=== PATIENT | male | born 1945 | race American Indian/Alaskan Native ===

== ENCOUNTER 2016-09-28 15:54 | Inpatient (IN) | payer OTHER ==
[~2016-09-28] VITALS: Ht 175.3 cm; Wt 75.5 kg
[~2016-09-28 15:54] MED LIST: ASPI81TA28 PO; ATOR-24 PO; CLOP1TAB15 PO; FRS/40 PO; GLC500 PO; IPRA1AER2 INH; ISOS60TA2 PO; LISI-729 PO; METO1TAB69 PO; MRLP17 PO; NTRSLP4 SL; OXYC-57 PO
[2016-09-28] MEDS ORDERED: ALBUTEROL 0.083% NEBU SOLN 3 ML VIAL INH STA (16:14)
[2016-09-28] MEDS ORDERED: METHYLPREDNISOLONE IV 40 MG in SYRINGE 0 ML IV STA (16:14)
[2016-09-28] MEDS ORDERED: NTRGSL/4 UT (16:34)
[2016-09-28] MEDS ORDERED: POLY335019 PO (16:34)
[2016-09-28] MEDS ORDERED: ASPIRIN 81 MG CHEW PO STA (16:38)
--- NOTE | 2016-09-28 16:55 | DIAGNOSTIC IMAGING REPORT ---
CHEST ONE VIEW PORTABLE CLINICAL HISTORY: Chest pain and shortness of breath. COMPARISON STUDY: Chest radiograph March 20, 2016. FINDINGS: There are median sternotomy wires and clips from bypass grafting. There is no pneumothorax or pleural effusion. Moderate cardiomegaly is noted. There is pulmonary vascular congestion with mild interstitial thickening. This suggests mild pulmonary edema. IMPRESSION: 1. Findings suggestive of mild pulmonary edema. 2. Stable cardiomegaly. Electronically signed by: Andre Lopez M.D. 09/28/2016 4:54 PM Dictated Date/Time: 09/28/2016 4:53 PM
[2016-09-28 16:56] LABS: BASO % 0.3 %; BASO ABS # 0.03 K/uL (0-0.2); COMPLETE YES; EOS % 0.1 %; HEMATOCRIT 38.9 % (42-52); IG% 2.1 %; LYMPH % 12.1 %; LYMPH ABS # 1.06 K/uL (1.2-3.4); MEAN CELL VOLUME 83.7 fL (80-100); MEAN CORPUSCULAR HEMOGLOBIN 26.2 pg (25-34); MEAN CORPUSCULAR HGB CONC 31.4 g/dl (32-36); MEAN PLATELET VOLUME 12.3 fL (7.4-10.4); MONO % 8.4 %; PLATELET COUNT 206 K/uL (130-400); RED BLOOD COUNT 4.65 M/uL (4.7-6.1); WHITE BLOOD COUNT 8.73 K/uL (4.8-10.8)
[2016-09-28] MEDS ORDERED: ACETAMINOPHEN 325 MG TAB PO STA (17:10)
[2016-09-28 17:19] LABS: BUN/CREATININE RATIO 22.5 (10-20); POTASSIUM 4.1 mmol/L (3.5-5.1)
[2016-09-28 17:30] LABS: CKMB/CK RATIO 2.9 (0-3.0)
[2016-09-28] MEDS: NITROGLYCERIN 0.4 MG SL PER TAB CHARGE SL PRN ×3 (17:48→18:26)
[2016-09-28] MEDS ORDERED: NITROGLYCERIN OINT 2% 1GM PACKET ONE (18:48)
[2016-09-28] MEDS ORDERED: FUROSEMIDE 40 MG/4 ML VIAL IV STA (18:51)
[2016-09-28] MEDS ORDERED: FUROSEMIDE 40 MG/4 ML VIAL ONE (18:57)
[2016-09-28] MEDS ORDERED: DEXTROSE 50% 50 ML SYR IV PRN (19:15)
[2016-09-28] MEDS ORDERED: LEVALBUTEROL/IPRATROPIUM NEB INH PRN (19:15)
[2016-09-28] MEDS ORDERED: GLUCOSE 40% GEL 15 GM TUBE PO PRN (19:15)
[2016-09-28] MEDS ORDERED: ACETAMINOPHEN 325 MG TAB PO PRN (19:15)
[2016-09-28] MEDS ORDERED: GLUCOSE 10 TABS/TUBE PO PRN (19:15)
[2016-09-28] MEDS ORDERED: GLUCAGON FOR INJ 1 MG VIAL SQ PRN (19:15)
[2016-09-28] MEDS ORDERED: IPRATROPIUM BROMIDE NEB SOLN 0.02% 2.5 ML VIAL INH PRN ×2 (20:00)
[2016-09-28] MEDS ORDERED: LEVALBUTEROL 1.25MG/0.5ML NEB INH PRN ×2 (20:00)
[2016-09-28 20:19] LABS: PARTIAL THROMBOPLASTIN RATIO 0.8; PROTHROMBIN TIME (PATIENT) 10.2 SECONDS (9.0-12.0)
[2016-09-28] MEDS: IPRATROPIUM BROMIDE NEB SOLN 0.02% 2.5 ML VIAL INH SCH ×2 (21:00→23:40)
[2016-09-28] MEDS: LEVALBUTEROL 1.25MG/0.5ML NEB INH SCH ×2 (21:00→23:40)
[2016-09-28 21:15] VITALS: BP 175/83; PULSE 90; TEMP 36.8; O2SAT 96; BMI 26.2
[2016-09-28] MEDS ORDERED: CLONIDINE HCL 0.1 MG TAB PO PRN (21:15)
--- NOTE | 2016-09-28 21:24 | History and Physical ---
History & Physical Date & Time of Service: Sep 28, 2016 at 21:07 Chief Complaint: CHF Primary Care Physician: No Doctor, Assigned History of Present Illness Source: patient, family, clinic records, hospital records 71 year old male with history of CAD s/p Stent Placement, CHF EF 40-50%, COPD, DM, HTN, presenting with shortness of breath this afternoon. Patient follows with Dr. Marc for PCP and Dr. Bernabe Toledo for Cardiology. Apparently, patient had stent placed last December 2014 and May in [facility] in [facility]. He was doing fine until for the past 3 weeks when he started to notice intermittent bipedal edema and exertional dyspnea. Denies chest pain, dizziness, nausea, palpitations. Today, patient was trying to fix a toilet sink but was unsucessful, causing him to be stressed. While attempting to do that, patient noticed sudden onset shortness of breath and mild chest discomfort. He tried to use an inhaler with minimal relief, hence ambulance was called. At the ER, patient's BP was as high as systolic 170s. CXR showed pulmonary edema EKG did not show any acute ischemia/infarct, trop was 0.04. He was given Aspirin,Nitrostat, Solumedrol, Albuterol. On my exam, patient states he feels improved overall. Dyspnea and chest pain has resolved. Denies any symptoms. Family History Diabetes mellitus Social History Smoking Status: Former Smoker Drug Use: none Marital Status: Housing status: lives with family Occupational Status: employed Immunizations History of Influenza Vaccine: Yes History of Tetanus Vaccine?: Yes History of Pneumococcal: No History of Hepatitis B Vaccine: Yes Multi-Drug Resistant Organisms History of MDRO: No Allergies Coded Allergies: No Known Allergies (Verified , 09/28/16) Home Medications Scheduled Aspirin (Aspirin Ec), 81 MG PO DAILY Atorvastatin (Lipitor), 40 MG PO DAILY Clopidogrel (Plavix), 75 MG PO DAILY Isosorbide Mononitrate (Imdur Ext Rel), 60 MG PO BID Lisinopril (Zestril), 5 MG PO DAILY Metformin HCl (Metformin HCl), 500 TAB PO BID Metoprolol Succ (Toprol Xl) (Toprol-Xl ), 100 MG PO BID Scheduled PRN Furosemide (Lasix), 40 MG PO DAILY PRN for "EXTRA FLUID" Ipratropium-Albuterol (Combivent Respimat), 1 PUFFS INH QID PRN for Wheezing Nitroglycerin (Nitrostat), 0.4 MG UT PRN PRN for Chest Pain Polyethylene Glycol 3350 (Miralax), 17 GM PO DAILY PRN for Constipation Review of Systems Constitutional- no fever; no weight loss Eyes- no acute visual changes ENT- no sinus drainage; no pharyngitis Pulmonary- (+) as noted above Cardiac-(+) as noted above GI- no nausea, no vomiting, no diarrhea, no melena, no hematochezia - no dysuria, no hematuria Musculoskeletal- no arthralgias, no myalgias Derm- no rashes, no new skin lesions, no changing skin lesions Hematologic- no unusual bruising, no unusual bleeding Lymphatics- no adenopathy Endocrine- no polyuria or polydipsia; no heat or cold intolerance Neuro- no headaches, no focal neurologic symptoms Psych- no anxiety, no depression Physical Exam Vital Signs Date Time Temp Pulse Resp B/P (MAP) Pulse Ox O2 Delivery O2 Flow Rate FiO2 09/28/16 19:47 94 169/76 09/28/16 19:02 94 16 170/93 95 Room Air 09/28/16 18:35 97 Nasal Cannula 2.0 09/28/16 17:57 100 174/101 09/28/16 17:30 93 16 177/94 95 Room Air 09/28/16 16:37 88 18 156/87 95 Room Air 09/28/16 16:15 90 09/28/16 16:00 95 Room Air 09/28/16 16:00 95 Room Air 09/28/16 16:00 36.8 82 18 148/75 95 Room Air General Appearance: WD/WN, no apparent distress Head: normocephalic, atraumatic Eyes: normal inspection, EOMI, sclerae normal ENT: normal ENT inspection, hearing grossly normal, pharynx normal Neck: supple, no adenopathy, thyroid normal, trachea midline, + JVD (mild) Respiratory/Chest: chest non-tender, no respiratory distress, no accessory muscle use, + rales (bilateral bases, no wheezing) Cardiovascular: regular rate, rhythm, no murmur, normal peripheral pulses, + JVD (mild), + pertinent finding (lower leg edema- grade 1) Abdomen/GI: normal bowel sounds, non tender, soft, no organomegaly Back: normal inspection, no CVA tenderness Extremities/Musculoskelatal: non-tender, + pertinent finding (bilateral lower leg edema, grade 1) Neurologic/Psych: care transitions manager II-XII nml as tested, no motor/sensory deficits, alert, normal mood/affect, oriented x 3 Skin: normal color, warm/dry, no rash Lymphatic: no adenopathy Diagnostics Laboratory Results Results Past 24 Hours Test 09/28/16 16:30 Range/Units White Blood Count 8.73 4.8-10.8 K/uL Red Blood Count 4.65 4.7-6.1 M/uL Hemoglobin 12.2 14.0-18.0 g/dL Hematocrit 38.9 42-52 % Mean Corpuscular Volume 83.7 80-100 fL Mean Corpuscular Hemoglobin 26.2 25-34 pg Mean Corpuscular Hemoglobin Concent 31.4 32-36 g/dl Platelet Count 206 130-400 K/uL Mean Platelet Volume 12.3 7.4-10.4 fL Neutrophils (%) (Auto) 77.0 % Lymphocytes (%) (Auto) 12.1 % Monocytes (%) (Auto) 8.4 % Eosinophils (%) (Auto) 0.1 % Basophils (%) (Auto) 0.3 % Neutrophils # (Auto) 6.72 1.4-6.5 K/uL Lymphocytes # (Auto) 1.06 1.2-3.4 K/uL Monocytes # (Auto) 0.73 0.11-0.59 K/uL Eosinophils # (Auto) 0.01 0-0.5 K/uL Basophils # (Auto) 0.03 0-0.2 K/uL RDW Standard Deviation 47.5 36.4-46.3 fL RDW Coefficient of Variation 15.5 11.5-14.5 % Immature Granulocyte % (Auto) 2.1 % Immature Granulocyte # (Auto) 0.18 0.00-0.02 K/uL Nucleated RBC Absolute Count (auto) 0.02 0-0 K/uL Nucleated Red Blood Cells % 0.3 % Prothrombin Time 10.2 9.0-12.0 SECONDS Prothromb Time International Ratio 1.0 0.9-1.1 Activated Partial Thromboplast Time 21.3 21.0-31.0 SECONDS Partial Thromboplastin Ratio 0.8 Sodium Level 142 136-145 mmol/L Potassium Level 4.1 3.5-5.1 mmol/L Chloride Level 108 98-107 mmol/L Carbon Dioxide Level 24 21-32 mmol/L Anion Gap 10.0 3-11 mmol/L Blood Urea Nitrogen 23 7-18 mg/dl Creatinine 1.00 0.60-1.40 mg/dl Est Creatinine Clear Calc Drug Dose 68.8 ml/min Estimated GFR () 88.0 Estimated GFR (Non- 75.9 BUN/Creatinine Ratio 22.5 10-20 Random Glucose 300 70-99 mg/dl Calcium Level 9.0 8.5-10.1 mg/dl Total Creatine Kinase 41 39-308 U/L Creatine Kinase MB 1.2 0.5-3.6 ng/ml Creatine Kinase MB Ratio 2.9 0-3.0 Troponin I 0.046 0-0.045 ng/ml Diagnostic Radiology CHEST ONE VIEW PORTABLE CLINICAL HISTORY: Chest pain and shortness of breath. COMPARISON STUDY: Chest radiograph March 20, 2016. FINDINGS: There are median sternotomy wires and clips from bypass grafting. There is no pneumothorax or pleural effusion. Moderate cardiomegaly is noted. There is pulmonary vascular congestion with mild interstitial thickening. This suggests mild pulmonary edema. IMPRESSION: 1. Findings suggestive of mild pulmonary edema. 2. Stable cardiomegaly. EKG HR 79, sinus rhythm, non specific ST t wave depression in anterolateral leads- present on last EKG 03/2016 Impression Assessment and Plan 71 year old male with history of CAD s/p Stent Placement, CHF EF 40-50%, COPD, DM, HTN, presenting with shortness of breath this afternoon. ACUTE ON CHRONIC SYSTOLIC CONGESTIVE HEART FAILURE HISTORY CAD S/P STENT PLACEMENT - patient was having lower leg edema for the past week - on Lasix PRN at home, which patient has not utilized yet - developed acute shortness of breath today, likely precipitated by Hypertensive Urgency - Lasix 40mg IV one dose ordered may need additional diuretics in AM - Echo ordered (per patient last echo this year showed EF 40-50%) - Cardiology consulted, patient follows with Dr. Bernabe Toledo HYPERTENSIVE URGENCY - patient is adherent with medications - Nitropaste ordered - hold usual Imdur BID - continue usual Metoprolol BID and Lisinopril daily CAD, S/P STENT PLACEMENT - trop 0.04, likely from Demand ischemia monitor cardiac markers, check echo - Nitropaste ordered - hold usual Imdur BID - continue usual Aspirin, Plavix, Metoprolol BID and Lisinopril daily DM 2 - hold Metformin - ISS for now DYSLIPIDEMIA - continue Atorvastatin DVT prophylaxis Heparin Full Code per patient Disposition lives at home with ff up with Dr. Marc for PCP Dr. Bernabe Toledo ([facility]) for Cardio case discussed at length with patient and his they are both agreeable and comfortable with plan of care VTE Prophylaxis VTE Risk Assessment Done? Y/N: Yes Risk Level: Moderate Given or contraindicated: Unfractionated heparin SQ
[2016-09-28] MEDS: METOPROLOL SUCC 50MG EXT REL TAB PO SCH (21:43)
[2016-09-28] MEDS: HEPARIN SOD 5000 UNIT/0.5 ML CARP SQ SCH (21:44)
[2016-09-28] MEDS: INSULIN ASPART 100 UNITS/ML 3 ML PEN SC SCH (21:45)
[2016-09-28] MEDS ORDERED: LEVALBUTEROL/IPRATROPIUM NEB INH SCH (22:00)
[2016-09-28 22:59] VITALS: BP 154/78; PULSE 95; TEMP 36.6; O2SAT 95
--- NOTE | 2016-09-28 23:15 | EMERGENCY ROOM VISIT NOTE ---
History Report prepared by Sonido: Ashlee Hernandez Under the Supervision of: Dr. Mick Sifuentes D.O. First contact with patient: 16:03 Chief Complaint: SHORTNESS OF BREATH Stated Complaint: SOB History of Present Illness The patient is a 71 year old male who presents to the Emergency Room with complaints of an episode of shortness of breath beginning 30 minutes ago. The patient states that he was fixing a toilet tank and was trying to twist a faucet when he began feeling shortness of breath and chest tightness. He reports that his symptoms are now resolved and he feels as though he is at his baseline. He notes that he had chest tightness last in 2007. He denies any arm pain, jaw pain, new leg swelling, coughing up blood, abdominal pain, nausea, vomiting, and history of blood clots. The patient notes that he has a history of COPD, diabetes, hypertension, acute WI, and stents that were placed 4 months ago. He reports that he takes Lasix occasionally. Source of History: patient Onset: 30 minutes ago Position: other (global) Quality: other (shortness of breath) Timing: other (episode) Associated Symptoms: + chest pain, No nausea, No vomiting, No abdominal pain Note: He denies any arm pain, jaw pain, new leg swelling, coughing up blood, and history of blood clots. Review of Systems See HPI for pertinent positives & negatives. A total of 10 systems reviewed and were otherwise negative. Past Medical & Surgical Medical Problems: (1) Cellulitis of right groin (2) Cellulitis of right hand (3) CHF (congestive heart failure) (4) HTN, DM, HLD, COPD (5) STEMI (ST elevation myocardial infarction) Family History Diabetes mellitus Social History Smoking Status: Former Smoker Drug Use: none Marital Status: Current/Historical Medications Scheduled Aspirin (Aspirin Ec), 81 MG PO DAILY Atorvastatin (Lipitor), 40 MG PO DAILY Clopidogrel (Plavix), 75 MG PO DAILY Isosorbide Mononitrate (Imdur Ext Rel), 60 MG PO BID Lisinopril (Zestril), 5 MG PO DAILY Metformin HCl (Metformin HCl), 500 TAB PO BID Metoprolol Succ (Toprol Xl) (Toprol-Xl ), 100 MG PO BID Scheduled PRN Furosemide (Lasix), 40 MG PO DAILY PRN for "EXTRA FLUID" Ipratropium-Albuterol (Combivent Respimat), 1 PUFFS INH QID PRN for Wheezing Nitroglycerin (Nitrostat), 0.4 MG UT PRN PRN for Chest Pain Polyethylene Glycol 3350 (Miralax), 17 GM PO DAILY PRN for Constipation Allergies Coded Allergies: No Known Allergies (Verified , 09/28/16) Physical Exam Vital Signs Date Time Temp Pulse Resp B/P (MAP) Pulse Ox O2 Delivery O2 Flow Rate FiO2 09/28/16 19:02 94 16 170/93 95 Room Air 09/28/16 18:35 97 Nasal Cannula 2.0 09/28/16 17:57 100 174/101 09/28/16 17:30 93 16 177/94 95 Room Air 09/28/16 16:37 88 18 156/87 95 Room Air 09/28/16 16:15 90 09/28/16 16:00 95 Room Air 09/28/16 16:00 95 Room Air 09/28/16 16:00 36.8 82 18 148/75 95 Room Air Physical Exam GENERAL: sitting up in bed, disheveled, alert, well appearing, well nourished, no distress, non-toxic EYE EXAM: normal conjunctiva OROPHARYNX: no exudate, no erythema, lips, buccal mucosa, and tongue normal and mucous membranes are moist NECK: supple, no nuchal rigidity, no adenopathy, non-tender LUNGS: Diminished at the bases. Normal chest wall mechanics HEART: no murmurs, S1 normal and S2 normal ABDOMEN: abdomen soft, non-tender, normo-active bowel sounds, no masses, no rebound or guarding. BACK: Back is symmetrical on inspection and there is no deformity, no midline tenderness, no CVA tenderness. SKIN: no rashes and no bruising UPPER EXTREMITIES: upper extremities are grossly normal. LOWER EXTREMITIES: Bilateral pitting edema. NEURO EXAM: Normal sensorium, cranial nerves II-XII grossly intact, normal speech, no gross weakness of arms, no gross weakness of legs. Medical Decision & Procedures ER Provider Diagnostic Interpretation: Radiology results as stated below per my review and the radiologist's interpretation: CHEST ONE VIEW PORTABLE FINDINGS: There are median sternotomy wires and clips from bypass grafting. There is no pneumothorax or pleural effusion. Moderate cardiomegaly is noted. There is pulmonary vascular congestion with mild interstitial thickening. This suggests mild pulmonary edema. IMPRESSION: 1. Findings suggestive of mild pulmonary edema. 2. Stable cardiomegaly. Electronically signed by: Andre Lopez M.D. 09/28/2016 4:54 PM Dictated Date/Time: 09/28/2016 4:53 PM Laboratory Results 09/28/16 16:30 Red Blood Count 4.65, Mean Corpuscular Volume 83.7, Mean Corpuscular Hemoglobin 26.2, Mean Corpuscular Hemoglobin Concent 31.4, Mean Platelet Volume 12.3, Neutrophils (%) (Auto) 77.0, Lymphocytes (%) (Auto) 12.1, Monocytes (%) (Auto) 8.4, Eosinophils (%) (Auto) 0.1, Basophils (%) (Auto) 0.3, Neutrophils # (Auto) 6.72, Lymphocytes # (Auto) 1.06, Monocytes # (Auto) 0.73, Eosinophils # (Auto) 0.01, Basophils # (Auto) 0.03 09/28/16 16:30 Test 09/28/16 16:30 White Blood Count 8.73 K/uL (4.8-10.8) Red Blood Count 4.65 M/uL (4.7-6.1) Hemoglobin 12.2 g/dL (14.0-18.0) Hematocrit 38.9 % (42-52) Mean Corpuscular Volume 83.7 fL (80-100) Mean Corpuscular Hemoglobin 26.2 pg (25-34) Mean Corpuscular Hemoglobin Concent 31.4 g/dl (32-36) Platelet Count 206 K/uL (130-400) Mean Platelet Volume 12.3 fL (7.4-10.4) Neutrophils (%) (Auto) 77.0 % Lymphocytes (%) (Auto) 12.1 % Monocytes (%) (Auto) 8.4 % Eosinophils (%) (Auto) 0.1 % Basophils (%) (Auto) 0.3 % Neutrophils # (Auto) 6.72 K/uL (1.4-6.5) Lymphocytes # (Auto) 1.06 K/uL (1.2-3.4) Monocytes # (Auto) 0.73 K/uL (0.11-0.59) Eosinophils # (Auto) 0.01 K/uL (0-0.5) Basophils # (Auto) 0.03 K/uL (0-0.2) RDW Standard Deviation 47.5 fL (36.4-46.3) RDW Coefficient of Variation 15.5 % (11.5-14.5) Immature Granulocyte % (Auto) 2.1 % Immature Granulocyte # (Auto) 0.18 K/uL (0.00-0.02) Nucleated RBC Absolute Count (auto) 0.02 K/uL (0-0) Nucleated Red Blood Cells % 0.3 % Prothrombin Time 10.2 SECONDS (9.0-12.0) Prothromb Time International Ratio 1.0 (0.9-1.1) Activated Partial Thromboplast Time 21.3 SECONDS (21.0-31.0) Partial Thromboplastin Ratio 0.8 Anion Gap 10.0 mmol/L (3-11) Est Creatinine Clear Calc Drug Dose 68.8 ml/min Estimated GFR () 88.0 Estimated GFR (Non- 75.9 BUN/Creatinine Ratio 22.5 (10-20) Calcium Level 9.0 mg/dl (8.5-10.1) Laboratory results per my review. Medications Administered Medications (Trade) Dose Ordered Sig/Margi Route Start Time Stop Time Status Last Admin Dose Admin Albuterol Sulfate (Ventolin 0.083% 2.5MG/3ML Neb) 2.5 mg NOW STAT INH 09/28/16 16:14 09/28/16 16:15 DC 09/28/16 16:39 2.5 MG Methylprednisolone Sodium Succinate 40 mg/Syringe 0.64 ml @ 1.5 mls/min ONE STAT IV 09/28/16 16:14 09/28/16 16:15 DC 09/28/16 16:39 1.5 MLS/MIN Aspirin (Aspirin Chew) 324 mg NOW STAT PO 09/28/16 16:38 09/28/16 16:39 DC 09/28/16 16:43 324 MG Acetaminophen (Tylenol Tab) 650 mg NOW STAT PO 09/28/16 17:10 09/28/16 17:11 DC 09/28/16 17:20 650 MG Nitroglycerin (Nitrostat Tab) 0.4 mg Q5M PRN SL 09/28/16 17:30 09/28/16 20:42 DC 09/28/16 17:58 0.4 MG Nitroglycerin (Nitroglycerin 2% Oint) 1 inch STK-MED ONCE .ROUTE 09/28/16 18:48 09/28/16 18:49 DC 09/28/16 18:54 0.5 INCH Furosemide (Lasix Inj) 40 mg STK-MED ONCE .ROUTE 09/28/16 18:57 09/28/16 18:58 DC 09/28/16 18:57 40 MG ECG Indication: chest pain Rate (beats per minute): 79 Rhythm: sinus rhythm Findings: ST depression (Lateral and High Lateral), other (Flipped T waves in high lateral leads) Comparison ECG Date: 03/20/16 Change: no significant change ED Course ED COURSE: Vital signs were reviewed and showed hypertension and tachycardia The patients medical record was reviewed The above diagnostic studies were performed and reviewed. ED treatments and interventions as stated above. 1603: The patient was evaluated in room B2. A complete history and physical examination was performed. 1614: Methylprednisololone Sodium Succinate 40mg/Syringe 0.64ml @ 1.5mls/min IV , Albuterol Sulfate 2.5mg INH. 1638: Aspirin Chew 324mg PO. 1647: I reevaluated the patient. He is getting a nebulizer and feels better. 1705: I reevaluated the patient. He would like Tylenol because he is feeling sore after breathing so quickly. 1710: Tylenol Tab 650mg PO. 1727: I reevaluated the patient and he is agreeable to stay. 1730: Nitroglycerin 0.4mg PRN SL cp. 1742: The patients troponin is elevated. 1746: I reviewed the patient's case with Dr. Wall of [facility]. He will evaluate the patient for further management. 1821: I reevaluated the patient and his chest pain is improved significantly. 1827: Upon reevaluation, the patient is doing well.I discussed my findings with the patient and he understands and agrees with the treatment plan. Based on the patients age, coexisting illnesses, exam and lab findings the decision to treat as an inpatient was made. The patient remained stable while under my care. The patient will be evaluated for further management. Medical Decision Differential diagnoses includes but is not limited to pneumonia, bronchitis, COPD/Asthma exacerbation, pneumothorax, pulmonary embolism, congestive heart failure, acute coronary syndrome Medication Reconciliation: I attest that I have personally reviewed the patient' s current medication list. Blood pressure screening: Patient was found to have an elevated blood pressure and was referred to their primary doctor for recheck and further treatment. 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 He notes he is working on a toilet and became short of breath and started having chest pain. He notes this started because he forgot his inhaler. He does have COPD. He has extensive CAD with previous stents. Patient was initially given a neb treatment with improvement. He was also given aspirin and nitroglycerin with resolution of his chest pain. EKG was markedly improved from his previous. Troponin was elevated. With his chest pain, shortness of breath along with elevated troponin and extensive cardiac history he was admitted to internal medicine for further workup. Consults Time Called: 1739 Consulting Physician: Dr. Mae Joiner Returned Call: [phone] I reviewed the patient's case with Dr. Wall of [facility]. He will evaluate the patient for further management. Impression Primary Impression: ACS (acute coronary syndrome) Additional Impression: Elevated troponin Scribe Attestation The scribe's documentation has been prepared under my direction and personally reviewed by me in its entirety. I confirm that the note above accurately reflects all work, treatment, procedures, and medical decision making performed by me. Departure Information Dispostion Being Evaluated By Hospitalist Referrals No Doctor, Assigned (PCP) Patient Instructions My [facility] Problem Qualifiers
[2016-09-28 23:17] LABS: CKMB/CK RATIO 3.8 (0-3.0)
[2016-09-28 23:40] VITALS: PULSE 93; O2SAT 96
[2016-09-29 03:27] VITALS: BP 136/67; PULSE 82; TEMP 36.6; O2SAT 95
[2016-09-29 04:15] LABS: BASO % 0.1 %; BASO ABS # 0.01 K/uL (0-0.2); COMPLETE YES; HEMATOCRIT 35.6 % (42-52); IG% 1.4 %; LYMPH % 7.5 %; LYMPH ABS # 0.68 K/uL (1.2-3.4); MEAN CELL VOLUME 81.7 fL (80-100); MEAN CORPUSCULAR HEMOGLOBIN 26.6 pg (25-34); MEAN CORPUSCULAR HGB CONC 32.6 g/dl (32-36); MEAN PLATELET VOLUME 11.3 fL (7.4-10.4); MONO % 9.8 %; NEUT % 81.2 %; PLATELET COUNT 194 K/uL (130-400); RED BLOOD COUNT 4.36 M/uL (4.7-6.1); WHITE BLOOD COUNT 9.01 K/uL (4.8-10.8)
[2016-09-29 04:46] LABS: BUN/CREATININE RATIO 25.2 (10-20); CALCIUM 8.9 mg/dl (8.5-10.1); CREATININE 0.84 mg/dl (0.60-1.40); POTASSIUM 3.8 mmol/L (3.5-5.1)
[2016-09-29 04:52] LABS: CKMB/CK RATIO 4.4 (0-3.0)
[2016-09-29] MEDS ORDERED: NITROGLYCERIN OINT 2% 1GM PACKET EXT SCH (06:00)
[2016-09-29] MEDS: HEPARIN SOD 5000 UNIT/0.5 ML CARP SQ SCH (06:08)
[2016-09-29 07:02] VITALS: BP 155/93; PULSE 84; TEMP 36.6; O2SAT 95
[2016-09-29] MEDS: LEVALBUTEROL 1.25MG/0.5ML NEB INH SCH (07:38)
[2016-09-29] MEDS: IPRATROPIUM BROMIDE NEB SOLN 0.02% 2.5 ML VIAL INH SCH (07:38)
[2016-09-29 07:41] LABS: ESTIMATED AVERAGE GLUCOSE 214 mg/dl
[2016-09-29] MEDS: INSULIN ASPART 100 UNITS/ML 3 ML PEN SC SCH ×2 (08:24→11:51)
[2016-09-29] MEDS: METOPROLOL SUCC 50MG EXT REL TAB PO SCH (08:27)
[2016-09-29 08:45] LABS: HA1C FLAG Peak Unknown (Normal)
[2016-09-29] MEDS ORDERED: CLOPIDOGREL BISULFATE 75 MG TAB PO SCH (09:00)
[2016-09-29] MEDS ORDERED: LISINOPRIL 5 MG TAB PO SCH (09:00)
[2016-09-29] MEDS ORDERED: ASPIRIN 81 MG ECTAB PO SCH (09:00)
[2016-09-29] MEDS ORDERED: ATORVASTATIN 20 MG TAB PO SCH (09:00)
[2016-09-29 09:01] VITALS: PULSE 77; O2SAT 97
[2016-09-29] MEDS ORDERED: PHARMACY GLYCEMIC MGMT CONSULT PRN (10:49)
[2016-09-29] MEDS ORDERED: INSULIN GLARGINE SOLOSTAR 100 UNITS/ML 3 ML PEN SC ONE (11:15)
--- NOTE | 2016-09-29 11:17 | Pharmacy Progress Note ---
Glycemic Control Intl Consult Date of Service Sep 29, 2016. Scope Glycemic Pharmacist consulted by Dr Talbot on 09/29/16 for glycemic control and to write orders per [facility] inpatient glycemic control protocol Objective Weight (Kilograms): 75.500 Accuchecks BSG (last 24hrs): Test 09/28/16 16:30 09/28/16 20:32 09/29/16 04:05 09/29/16 06:14 Random Glucose 300 mg/dl (70-99) 270 mg/dl (70-99) Bedside Glucose 305 mg/dl (70-99) 234 mg/dl (70-99) Laboratory Data (last 24hrs) Test 09/28/16 16:30 09/29/16 04:05 Anion Gap 10.0 mmol/L 7.0 mmol/L BUN/Creatinine Ratio 22.5 25.2 Blood Urea Nitrogen 23 mg/dl 21 mg/dl Creatinine 1.00 mg/dl 0.84 mg/dl Potassium Level 4.1 mmol/L 3.8 mmol/L Sodium Level 142 mmol/L 143 mmol/L White Blood Count 8.73 K/uL 9.01 K/uL Red Blood Count 4.65 M/uL 4.36 M/uL Hemoglobin 12.2 g/dL 11.6 g/dL Hematocrit 38.9 % 35.6 % Mean Corpuscular Volume 83.7 fL 81.7 fL Mean Corpuscular Hemoglobin 26.2 pg 26.6 pg Mean Corpuscular Hemoglobin Concent 31.4 g/dl 32.6 g/dl Platelet Count 206 K/uL 194 K/uL Mean Platelet Volume 12.3 fL 11.3 fL Neutrophils (%) (Auto) 77.0 % 81.2 % Lymphocytes (%) (Auto) 12.1 % 7.5 % Monocytes (%) (Auto) 8.4 % 9.8 % Eosinophils (%) (Auto) 0.1 % 0.0 % Basophils (%) (Auto) 0.3 % 0.1 % Neutrophils # (Auto) 6.72 K/uL 7.31 K/uL Lymphocytes # (Auto) 1.06 K/uL 0.68 K/uL Monocytes # (Auto) 0.73 K/uL 0.88 K/uL Eosinophils # (Auto) 0.01 K/uL 0.00 K/uL Basophils # (Auto) 0.03 K/uL 0.01 K/uL Hemoglobin A1c 9.1 % HbA1c Test 09/29/16 04:05 Hemoglobin A1c 9.1 % (4.5-5.6) H Recent Pertinent Medications Outpatient Anti-diabetic Regimen: * metformin 500 mg PO BIDM The patient is currently receiving: * Correctional Insulin: Novolog Correction per scale ACHS Goal Range: Low 140 mg/dL - High 180 mg/dL Correction Factor: 30 mg/dL/unit * Prandial insulin: Per carb ratio of 1 unit per 25 grams CHO consumed Risk Factors for Insulin Resistance: * Steroids * Diet Assessment & Plan ASSESSMENT: * 71 yo diabetic M admitted with SOB/CHF last night * BSG on admission = 305 mg/dL * Novolog started per MD, metformin held * A1c = 9.1%; EAG = 214 mg/dL, given age and other comorbidities, a reasonable goal A1c would be ~8.0 % * Fasting BSG = 234 mg/dL * Initiate wt based Lantus starting this AM * Instead of BID dosing, opt for once daily administration * Tighten Novolog CF/CR/goal range to gain better control * ADA & AACE recommend a goal blood sugar range 140-180 mg/dl for the majority of critically ill & non-critically ill patients. However, more stringent targets may be selected in individual cases. Tighten to 110-140 mg/dL to help bring BSGs down. PLAN FOR INPATIENT GLYCEMIC CONTROL: * Continue to hold metformin * Initiate Basal insulin with LANTUS 20 units SQ daily, first dose now * Tighten Correctional Insulin with NOVOLOG per scale ACHS or Q6hrs while NPO * Goal Range: Low 110 mg/dL - High 140 mg/dL * Correction Factor: 30 mg/dL/unit * Nutritional / Prandial insulin per carb ratio of 1 unit per 10 grams CHO consumed LOOKING AHEAD TO DISCHARGE: * Recommend CDE to see patient * Continue to titrate metformin dosing upwards as recommended. Dosage increases should be made in increments of 500 mg weekly, up to 2,000 mg/day PO, given in divided doses. Doses above 2000 mg/day may be better tolerated if divided and given 3 times per day with meals. Max: 2,550 mg/day PO, in divided doses * B12 supplementation may be necessary with [facility] metformin use * Consider addition of once daily Lantus on discharge? TBD if necessary * Support Patient Self-Management * Healthy Lifestyle (diet, exercise, and smoking cessation) * Disease self-management (SMBG) * Prevention of complications (BP, Lipid goals, Immunizations) * Consider outpatient Diabetes Self-Management Education & Support * Please note that the plan above was derived based on current level of insulin resistance and hospital stress. These recommendations are appropriate for inpatient admission only. Plan of care upon discharge will need to be reassessed to avoid potential outpatient hypo/hyperglycemia. Thank you.
--- NOTE | 2016-09-29 11:21 | ECHOCARDIOGRAM REPORT ---
*NOTICE TO RECEIVING DEMOCRAT AGENCY This information is strictly Confidential and protected under [place] law. [place] law prohibits you from making any further disclosure of this information unless further disclosure is expressly permitted by the written consent of the person to whom it pertains or is authorized by law. A general authorization for the release of medical or other information is not sufficient for this purpose. Hospital accepts no responsibility if the information is made available to any other person, INCLUDING THE PATIENT. Interpretation Summary * Echocardiogram Report * Name: GRZEGORZ HATCH Study Date: 09/29/2016 07:00 AM BP: 155/93 mmHg * Patient Location: .EDB HR: 89 * : 1945 (M/d/yyyy) Gender: Male Height: 69 in * Age: 71 yrs Ethnicity: NA Weight: 177 lb * Ordering Physician: Akira Wall * Referring Physician: Self, Referred * Performed By: Tay Bryant RCS * * Reason For Study: CHF * BSA: 2.0 m2 * -- Conclusions -- * 1. Mildly dilated LV, borderline concentric LVH. * 2. Mild to moderate LV dysfunction. LVEF 40-45%. Severe inferolateral hypokinesis, mid to apical moderate lateral hypokinesis. Severe apical hypokinesis. * 3. Normal RV size, borderline RV function. * 4. Mild to moderate eccentric mitral regurgitation. * 5. Aortic valve sclerosis without stenosis. * 6. Moderate to severe pulmonary hypertension. Est PASP >55 mmHg. * 7. Grade II diastolic dysfunction. * 8. Compared with prior study on 11/19/2015: No significant changes. Procedure Details * Left Ventricle The left ventricle is mildly dilated. There is borderline concentric left ventricular hypertrophy. Ejection Fraction = 40-45%. * Right Ventricle The right ventricle is grossly normal size. The right ventricular systolic function is borderline reduced. * Atria The left atrium is moderately dilated. The right atrium is mildly dilated. * Mitral Valve The mitral valve leaflets appear thickened, but open well. There is no mitral valve stenosis. There is mild to moderate mitral regurgitation. The mitral regurgitant jet is eccentrically directed. * Tricuspid Valve The tricuspid valve is not well visualized, but is grossly normal. Right ventricular systolic pressure is elevated at 50-60mmHg. There is mild to moderate tricuspid regurgitation. * Aortic Valve Aortic valve sclerosis mild, without significant aortic valvular stenosis. No hemodynamically significant valvular aortic stenosis. * Pulmonic Valve The pulmonary valve is inadequately visualized, but the Doppler data is adequate for interpretation. Pulmonic stenosis is absent. Trace pulmonic valvular regurgitation. * Great Vessels The aortic root and proximal ascending aorta are normal sized. * Pericardium/Pleural There is no pericardial effusion. * Left Ventricular Diastolic Function Diastolic dysfunction, Grade II (pseudonormalization pattern). * * MMode 2D Measurements and Calculations * IVSd 1.1 cm * * LVIDd 6.8 cm * LVIDs 4.8 cm * LVPWd 1.1 cm * * IVS/LVPW 1.0 * FS 28.8 % * EDV(Teich) 237.4 ml * ESV(Teich) 109.0 ml * EF(Teich) 54.1 % * * EDV(cubed) 311.2 ml * ESV(cubed) 112.5 ml * EF(cubed) 63.8 % * * LV mass(C)d 342.7 grams * LV mass(C)dI 174.7 grams/m\S\2 * * SV(Teich) 128.4 ml * SI(Teich) 65.5 ml/m\S\2 * SV(cubed) 198.7 ml * SI(cubed) 101.3 ml/m\S\2 * * Ao root diam 3.1 cm * Ao root area 7.5 cm\S\2 * * LVOT diam 2.0 cm * LVOT area 3.1 cm\S\2 * * LVAd ap4 34.3 cm\S\2 * LVLd ap4 9.0 cm * EDV(MOD-sp4) 108.8 ml * EDV(sp4-el) 111.0 ml * LVAs ap4 18.9 cm\S\2 * LVLs ap4 8.2 cm * ESV(MOD-sp4) 36.7 ml * ESV(sp4-el) 37.2 ml * EF(MOD-sp4) 66.3 % * EF(sp4-el) 66.5 % * * LVAd ap2 32.0 cm\S\2 * LVLd ap2 8.4 cm * EDV(MOD-sp2) 104.3 ml * EDV(sp2-el) 103.9 ml * LVAs ap2 18.9 cm\S\2 * LVLs ap2 7.6 cm * ESV(MOD-sp2) 38.8 ml * ESV(sp2-el) 39.9 ml * EF(MOD-sp2) 62.8 % * EF(sp2-el) 61.6 % * * LVLd %diff -7.29 % * EDV(MOD-bp) 110.6 ml * LVLs %diff -7.36 % * ESV(MOD-bp) 36.4 ml * EF(MOD-bp) 67.1 % * * SV(MOD-sp4) 72.1 ml * SI(MOD-sp4) 36.8 ml/m\S\2 * * SV(MOD-sp2) 65.5 ml * SI(MOD-sp2) 33.4 ml/m\S\2 * * SV(MOD-bp) 74.3 ml * SI(MOD-bp) 37.9 ml/m\S\2 * * SV(sp4-el) 73.8 ml * SI(sp4-el) 37.6 ml/m\S\2 * * SV(sp2-el) 64.0 ml * SI(sp2-el) 32.6 ml/m\S\2 * * * Doppler Measurements and Calculations * MV E max awilda 95.8 cm/sec * MV A max awilda 46.4 cm/sec * * MV E/A 2.1 * * MV dec time 0.17 sec * * Ao V2 max 150.7 cm/sec * Ao max PG 9.1 mmHg * Ao max PG (full) 8.4 mmHg * TANO(V,A) 0.88 cm\S\2 * TANO(V,D) 0.88 cm\S\2 * * LV V1 max PG 0.72 mmHg * * LV V1 max 42.4 cm/sec * * TR max awilda 362.7 cm/sec * * *
[2016-09-29 11:26] VITALS: BP 145/82; PULSE 73; TEMP 36.4; O2SAT 96
[2016-09-29 11:33] VITALS: Ht 175.3 cm; Wt 75.5 kg
--- NOTE | 2016-09-29 11:36 | Progress Note ---
Medicine Progress Note Date & Time of Visit: Sep 29, 2016 at 11:16. Subjective 71 year old male with history of CAD s/p CABG with subsequent stent placement in LCx and RCA, ICM with EF 40-50%, COPD, uncontrolled DM, HTN, presenting with shortness of breath improved overnight after treatment with nitropaste. -tolerating PO this morning -denies CP, SOB or other symptoms at this time -appears slightly aggravated because he is stating that he wants to go home. -reports chronic angina that is better with rest Objective Last 8 Hrs Date Time Temp Pulse Resp B/P (MAP) Pulse Ox O2 Delivery O2 Flow Rate FiO2 09/29/16 09:01 77 16 97 Room Air 09/29/16 08:00 Room Air 09/29/16 07:02 36.6 84 18 155/93 (113) 95 Room Air 09/29/16 04:00 Room Air 09/29/16 03:27 36.6 82 20 136/67 (90) 95 Room Air Physical Exam: GEN: WNWD, in no acute distress, alert and appropriate HEENT: NC/AT, normal sclerae, MMM CARDIO: reg rate, S1/2 heard without m/g/r, no JVD, no edema LUNGS: CTA bilaterally, no crackles, rales or wheezes, good diaphragmatic excursion ABD: soft, non-tender, non-distended, no rebound or guarding, +BS EXTREMITY: extremities are warm and well-perfused NEURO: CN 2-12 grossly intact, no gross focal deficits. MUSC: ambulatory, no gross focal deficits. SKIN: warm and dry Laboratory Results: 09/29/16 04:05 Red Blood Count 4.36, Mean Corpuscular Volume 81.7, Mean Corpuscular Hemoglobin 26.6, Mean Corpuscular Hemoglobin Concent 32.6, Mean Platelet Volume 11.3, Neutrophils (%) (Auto) 81.2, Lymphocytes (%) (Auto) 7.5, Monocytes (%) (Auto) 9.8, Eosinophils (%) (Auto) 0.0, Basophils (%) (Auto) 0.1, Neutrophils # (Auto) 7.31, Lymphocytes # (Auto) 0.68, Monocytes # (Auto) 0.88, Eosinophils # (Auto) 0.00, Basophils # (Auto) 0.01 09/29/16 04:05 Test 09/28/16 16:30 09/29/16 04:05 09/29/16 06:14 Nucleated RBC Absolute Count (auto) 0.02 K/uL (0-0) Nucleated Red Blood Cells % 0.3 % Prothrombin Time 10.2 SECONDS (9.0-12.0) Prothromb Time International Ratio 1.0 (0.9-1.1) Activated Partial Thromboplast Time 21.3 SECONDS (21.0-31.0) Partial Thromboplastin Ratio 0.8 White Blood Count 9.01 K/uL (4.8-10.8) Red Blood Count 4.36 M/uL (4.7-6.1) Hemoglobin 11.6 g/dL (14.0-18.0) Hematocrit 35.6 % (42-52) Mean Corpuscular Volume 81.7 fL (80-100) Mean Corpuscular Hemoglobin 26.6 pg (25-34) Mean Corpuscular Hemoglobin Concent 32.6 g/dl (32-36) Platelet Count 194 K/uL (130-400) Mean Platelet Volume 11.3 fL (7.4-10.4) Neutrophils (%) (Auto) 81.2 % Lymphocytes (%) (Auto) 7.5 % Monocytes (%) (Auto) 9.8 % Eosinophils (%) (Auto) 0.0 % Basophils (%) (Auto) 0.1 % Neutrophils # (Auto) 7.31 K/uL (1.4-6.5) Lymphocytes # (Auto) 0.68 K/uL (1.2-3.4) Monocytes # (Auto) 0.88 K/uL (0.11-0.59) Eosinophils # (Auto) 0.00 K/uL (0-0.5) Basophils # (Auto) 0.01 K/uL (0-0.2) RDW Standard Deviation 44.8 fL (36.4-46.3) RDW Coefficient of Variation 15.2 % (11.5-14.5) Immature Granulocyte % (Auto) 1.4 % Immature Granulocyte # (Auto) 0.13 K/uL (0.00-0.02) Anion Gap 7.0 mmol/L (3-11) Est Creatinine Clear Calc Drug Dose 81.9 ml/min Estimated GFR () 102.8 Estimated GFR (Non- 88.7 BUN/Creatinine Ratio 25.2 (10-20) Estimated Average Glucose 214 mg/dl Hemoglobin A1c 9.1 % (4.5-5.6) Hemoglobin A1c Pathologist Comment Calcium Level 8.9 mg/dl (8.5-10.1) Total Creatine Kinase 43 U/L (39-308) Creatine Kinase MB 1.9 ng/ml (0.5-3.6) Creatine Kinase MB Ratio 4.4 (0-3.0) Troponin I 0.309 ng/ml (0-0.045) Bedside Glucose 234 mg/dl (70-99) Last 24 Hours Test 09/28/16 16:30 09/28/16 20:32 09/28/16 22:35 09/29/16 04:05 White Blood Count 8.73 K/uL 9.01 K/uL Red Blood Count 4.65 M/uL 4.36 M/uL Hemoglobin 12.2 g/dL 11.6 g/dL Hematocrit 38.9 % 35.6 % Mean Corpuscular Volume 83.7 fL 81.7 fL Mean Corpuscular Hemoglobin 26.2 pg 26.6 pg Mean Corpuscular Hemoglobin Concent 31.4 g/dl 32.6 g/dl Platelet Count 206 K/uL 194 K/uL Mean Platelet Volume 12.3 fL 11.3 fL Neutrophils (%) (Auto) 77.0 % 81.2 % Lymphocytes (%) (Auto) 12.1 % 7.5 % Monocytes (%) (Auto) 8.4 % 9.8 % Eosinophils (%) (Auto) 0.1 % 0.0 % Basophils (%) (Auto) 0.3 % 0.1 % Neutrophils # (Auto) 6.72 K/uL 7.31 K/uL Lymphocytes # (Auto) 1.06 K/uL 0.68 K/uL Monocytes # (Auto) 0.73 K/uL 0.88 K/uL Eosinophils # (Auto) 0.01 K/uL 0.00 K/uL Basophils # (Auto) 0.03 K/uL 0.01 K/uL RDW Standard Deviation 47.5 fL 44.8 fL RDW Coefficient of Variation 15.5 % 15.2 % Immature Granulocyte % (Auto) 2.1 % 1.4 % Immature Granulocyte # (Auto) 0.18 K/uL 0.13 K/uL Nucleated RBC Absolute Count (auto) 0.02 K/uL Nucleated Red Blood Cells % 0.3 % Prothrombin Time 10.2 SECONDS Prothromb Time International Ratio 1.0 Activated Partial Thromboplast Time 21.3 SECONDS Partial Thromboplastin Ratio 0.8 Sodium Level 142 mmol/L 143 mmol/L Potassium Level 4.1 mmol/L 3.8 mmol/L Chloride Level 108 mmol/L 108 mmol/L Carbon Dioxide Level 24 mmol/L 28 mmol/L Anion Gap 10.0 mmol/L 7.0 mmol/L Blood Urea Nitrogen 23 mg/dl 21 mg/dl Creatinine 1.00 mg/dl 0.84 mg/dl Est Creatinine Clear Calc Drug Dose 68.8 ml/min 81.9 ml/min Estimated GFR () 88.0 102.8 Estimated GFR (Non- 75.9 88.7 BUN/Creatinine Ratio 22.5 25.2 Random Glucose 300 mg/dl 270 mg/dl Calcium Level 9.0 mg/dl 8.9 mg/dl Total Creatine Kinase 41 U/L 50 U/L 43 U/L Creatine Kinase MB 1.2 ng/ml 1.9 ng/ml 1.9 ng/ml Creatine Kinase MB Ratio 2.9 3.8 4.4 Troponin I 0.046 ng/ml 0.122 ng/ml 0.309 ng/ml Bedside Glucose 305 mg/dl Estimated Average Glucose 214 mg/dl Hemoglobin A1c 9.1 % Hemoglobin A1c Pathologist Comment Test 09/29/16 06:14 Bedside Glucose 234 mg/dl Assessment & Plan 71 year old male with history of CAD s/p CABG with subsequent stent placement in LCx and RCA, ICM with EF 40-50%, COPD, uncontrolled DM, HTN, presenting with shortness of breath improved overnight after treatment with nitropaste. 1. Acute on chronic systolic heart failure-SOB yesterday with pulm edema seen on chest xray. Breathing has improved today. Diuresed 1-1.5L overnight with Lasix 40 IV x one dose in the ER. He appears compensated this morning and euvolemic. Awaiting echo report and Cardiology eval. Cont current medical management including Toprol, ACEI, statin and Imdur. 2. CAD-no chest pain noted however, patient has severe CAD in presence of uncontrolled DMII and HTN and has chronic angina. 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 He has had a mild troponin elevation overnight, which is expected likely 2/2 demand in this patient with his level of disease and comorbidities. Again awaiting TTE and Cards eval for disposition. cont med management with ASA, Plavix and meds above. Would recommend increased dose statin to Lipitor 80 if patient could tolerate. 3. DMII-uncontrolled with A1C 9.1. Pt reports sugars at goal but then stated to the diabetic education nurse that if it is elevated he sometimes takes more metformin. Would send him home on at least an increased dose of metformin with close CP follow-up. Insulin may need to be started in the next month if his numbers don't get under control. Currently got one dose of steroids in ER yesterday, and sugar levels are not under control but are decreasing. He ate breakfast this morning, and is on ISS. Appreciate inpatient glycemic pharmacy assistance with inpatient glucose control. 4. COPD-stable, no wheezing. Former smoker. No further indication for steroids at this time. Cont home inhaler therapy. Pt is not on oxygen. 5. HTN-came in with hypertensive urgency. BP is more under control this morning on nitropaste. D/C that now in preparation for possible DC today and restarted his Imdur. DVT proph-heparin SQ FULL CODE Dispo-pending Cards evaluation Vanessa Talbot DO [facility] Hospitalist Consultants: Cards Current Inpatient Medications: Current Inpatient Medications Medications (Trade) Dose Ordered Sig/Margi Route Start Time Stop Time Status Last Admin Dose Admin Nitroglycerin (Nitroglycerin 2% Oint) 0.5 inch Q6H EXT 09/29/16 06:00 10/29/16 05:59 09/29/16 06:13 0.5 INCH Insulin Aspart (novoLOG ASPART) SLIDING SCALE If C... ACHS SC 09/28/16 21:00 10/28/16 20:59 09/29/16 08:24 3 UNITS Glucose (Glucose 40% Gel) 15-30 GRAMS 15 GRAMS... UD PRN PO 09/28/16 19:15 10/28/16 19:14 Glucose (Glucose Chew Tab) 4-8 Tablets 4 Tabl... UD PRN PO 09/28/16 19:15 10/28/16 19:14 Dextrose (Dextrose 50% 50ML Syringe) 25-50ML OF 50% DW IV FOR... UD PRN IV 09/28/16 19:15 10/28/16 19:14 Glucagon (Glucagon Inj) 1 mg UD PRN SQ 09/28/16 19:15 10/28/16 19:14 Aspirin (Ecotrin Tab) 81 mg DAILY PO 09/29/16 09:00 10/29/16 08:59 09/29/16 08:26 81 MG Atorvastatin Calcium (Lipitor Tab) 40 mg DAILY PO 09/29/16 09:00 10/29/16 08:59 09/29/16 08:26 40 MG Clopidogrel Bisulfate (plAVix TAB) 75 mg DAILY PO 09/29/16 09:00 10/29/16 08:59 09/29/16 08:27 75 MG Lisinopril (Zestril Tab) 5 mg DAILY PO 09/29/16 09:00 10/29/16 08:59 09/29/16 08:28 5 MG Metoprolol Succinate (Toprol Xl Tab) 100 mg BID PO 09/28/16 21:00 10/28/16 20:59 09/29/16 08:27 100 MG Heparin Sodium (Porcine) (Heparin Sq 5000 Unit/0.5ml) 5,000 unit Q8 SQ 09/28/16 22:00 10/28/16 21:59 09/29/16 06:08 5,000 UNIT Acetaminophen (Tylenol Tab) 650 mg Q4H PRN PO 09/28/16 19:15 10/28/16 19:14 Ipratropium Ramona (Atrovent 0.02% 0.5MG/2.5ML Neb) 0.5 mg Q6R INH 09/28/16 21:00 10/28/16 20:59 09/28/16 23:40 0.5 MG Levalbuterol (Xopenex 1.25MG/ 0.5ML Neb) 1.25 mg Q6R INH 09/28/16 21:00 10/28/16 20:59 09/28/16 23:40 1.25 MG Ipratropium Ramona (Atrovent 0.02% 0.5MG/2.5ML Neb) 0.5 mg Q4H PRN INH 09/28/16 20:00 10/28/16 19:59 09/29/16 09:00 0.5 MG Levalbuterol (Xopenex 1.25MG/ 0.5ML Neb) 1.25 mg Q4H PRN INH 09/28/16 20:00 10/28/16 19:59 09/29/16 09:00 1.25 MG Clonidine HCl (Catapres Tab) 0.1 mg Q6H PRN PO 09/28/16 21:15 10/28/16 21:14 Miscellaneous Information (Consult Glycemic Management Pharmacy) 1 ea UD PRN N/A 09/29/16 10:49 10/29/16 10:48 Insulin Glargine (Lantus Solostar Pen) 20 units NOW ONCE SC 09/29/16 11:15 09/29/16 11:16 Insulin Glargine (Lantus Solostar Pen) 20 units DAILY SC 09/30/16 09:00 10/30/16 08:59
[2016-09-29 11:55] VITALS: BP 165/88
[2016-09-29] MEDS ORDERED: METF1TAB53 PO (12:23)
--- NOTE | 2016-09-29 12:29 | Discharge Instructions ---
Discharge Instructions Date of Service Sep 29, 2016. Admission Reason for Admission: CHF Discharge Discharge Diagnosis / Problem: CHF exacerbation, CAD Discharge Goals Goal(s): Prevent Disease Progression Activity Recommendations Activity Limitations: per Instructions/Follow-up section . Instructions / Follow-Up Instructions / Follow-Up Call your Primary Care doctor if any of the following symptoms or problems start or get worse: * Shortness of breath or difficulty breathing * Wake up at night short of breath * Chest pain * Cough * Swelling of your hands, feet, or legs * More fatigued or tired with your normal activity * Palpitations - sudden fast heart beats WEIGHT * Weigh yourself every morning after using the bathroom. * Use the same scale. * Wear the same amount of clothing. * Write your weight down on a chart. * Call your Primary Care doctor if you gain more than 2-3 pounds in 1-2 days. MEDICATIONS * Use this discharge instruction sheet for medication instructions. * Take your medications at the time your doctor ordered. * Do not skip a dose of your medicines. * If you miss a dose of medicine, take it as soon as possible, but DO NOT DOUBLE A DOSE. * Read your medicine information when you get home. * Know all of the side effects of your medicine. If in doubt, ask your pharmacist * Call your Primary Care doctor's office if you have any side effects. * Be sure all of your doctors know what medicine and herbs you take (including cold, flu, and herbal medicine). Take the following with you to your follow-up doctor appointments: * Weight Chart * Medication List * List of questions Do not drink excessive alcohol, beer or wine. Please take all medications as instructed. Please note, your metformin was changed to 1000mg XR twice daily. You have a follow-up appointment with Dr. Marc for follow-up from this hospitalization on 10/05 @ 12:45pm at the [facility] location. Please follow-up with Cardiology (Dr. Toledo) as instructed and continue taking Lasix every day instead of as needed. It was a pleasure taking care of you! Call if you have any questions or problems. You can reach a [facility] Hospitalist on duty at [facility] 24 hours a day by calling [phone]. Take care of yourself. Vanessa Talbot DO [facility] Hospitalist Current Hospital Diet Patient's current hospital diet: Diabetes Type 2 Diet, Low Sodium Diet (2gm Na) Discharge Diet Recommended Diet: Low Sodium Diet (2gm Na), Diabetes Type 2 Diet Procedures Procedures Performed: TTE-no changes from prior Pending Studies Studies pending at discharge: no Laboratory Results Hemoglobin A1c Test 09/29/16 04:05 Range/Units Estimated Average Glucose 214 mg/dl Hemoglobin A1c 9.1 H 4.5-5.6 % Medical Emergencies . Who to Call and When: Call 911 or go to the Emergency Room if: * If at any time you feel your situation is an emergency * You have tightness or pain in your chest that does not go away with rest or Nitroglycerin * You are very short of breath even with rest . Non-Emergent Contact Non-Emergency issues call your: Primary Care Provider, [employer] . . "Provider Documentation" section prepared by Vanessa Talbot. . VTE Core Measure Inpt VTE Proph given/why not?: Unfractionated heparin SQ
[2016-09-29 12:33] VITALS: BP 165/88; PULSE 73; TEMP 36.4; O2SAT 96
--- NOTE | 2016-09-29 12:41 | Discharge Summary ---
Discharge Summary Date of Service Sep 29, 2016. Discharge Summary Admission Date: Sep 28, 2016 at 19:13 Discharge Date: Sep 29, 2016 Discharge Disposition: Home Principal Diagnosis: Acute on chronic systolic CHF exacerbation Hypertensive Urgency ICM 2/2 severe CAD s/p CABG and subsequent stent placement. Uncontrolled DMII COPD Procedures: TTE-resting, no changes from prior Vaccinations: None. Consultations: Cards Pending Studies/Follow-Up: see instructions below. Medication Reconciliation New Medications: Metformin Hcl (Glucophage Ext Rel) 1,000 Mg Tab 1 TAB PO BID for 30 Days, #60 TAB 1 Refill Continued Medications: Aspirin (Aspirin Ec) 81 Mg Tab 81 MG PO DAILY Atorvastatin (Lipitor) 40 Mg Tab 40 MG PO DAILY, TAB Clopidogrel (Plavix) 75 Mg Tab 75 MG PO DAILY, TAB Furosemide (Lasix) 40 Mg Tab 40 MG PO DAILY, TAB Ipratropium-Albuterol (Combivent Respimat) 1 Aer Aer 1 PUFFS INH QID PRN for Wheezing, INH Isosorbide Mononitrate (Imdur Ext Rel) 60 Mg Tab 60 MG PO BID, TAB Lisinopril (Zestril) 5 Mg Tab 5 MG PO DAILY, TAB Metoprolol Succ (Toprol Xl) (Toprol-Xl ) 100 Mg Tabcr 100 MG PO BID, TAB Nitroglycerin (Nitrostat) 0.4 Mg Tab 0.4 MG UT PRN PRN for Chest Pain, BTL Polyethylene Glycol 3350 (Miralax) 1 Pow Pow 17 GM PO DAILY PRN for Constipation, #527 GM Discontinued Medications: Metformin HCl (Metformin HCl) 500 Mg Tab 500 TAB PO BID Admission Information HPI (per Admitting provider): 71 year old male with history of CAD s/p Stent Placement, CHF EF 40-50%, COPD, DM, HTN, presenting with shortness of breath this afternoon. Patient follows with Dr. Marc for PCP and Dr. Bernabe Toledo for Cardiology. Apparently, patient had stent placed last December 2014 and May in [facility] in [facility]. He was doing fine until for the past 3 weeks when he started to notice intermittent bipedal edema and exertional dyspnea. Denies chest pain, dizziness, nausea, palpitations. Today, patient was trying to fix a toilet sink but was unsucessful, causing him to be stressed. While attempting to do that, patient noticed sudden onset shortness of breath and mild chest discomfort. He tried to use an inhaler with minimal relief, hence ambulance was called. At the ER, patient's BP was as high as systolic 170s. CXR showed pulmonary edema EKG did not show any acute ischemia/infarct, trop was 0.04. He was given Aspirin,Nitrostat, Solumedrol, Albuterol. On my exam, patient states he feels improved overall. Dyspnea and chest pain has resolved. Denies any symptoms. Physical Exam (per Admitting): General Appearance: WD/WN, no apparent distress Head: normocephalic, atraumatic Eyes: normal inspection, EOMI, sclerae normal ENT: normal ENT inspection, hearing grossly normal, pharynx normal Neck: supple, no adenopathy, thyroid normal, trachea midline, + JVD (mild) Respiratory/Chest: chest non-tender, no respiratory distress, no accessory muscle use, + rales (bilateral bases, no wheezing) Cardiovascular: regular rate, rhythm, no murmur, normal peripheral pulses, + JVD (mild), + pertinent finding (lower leg edema- grade 1) Abdomen/GI: normal bowel sounds, non tender, soft, no organomegaly Back: normal inspection, no CVA tenderness Extremities/Musculoskelatal: non-tender, + pertinent finding (bilateral lower leg edema, grade 1) 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 1. Acute on chronic systolic heart failure-SOB yesterday with pulm edema seen on chest xray. Breathing has improved today. Diuresed 1-1.5L overnight with Lasix 40 IV x one dose in the ER. He appears compensated this morning and euvolemic. Awaiting echo report and Cardiology eval. Cont current medical management including Toprol, ACEI, statin and Imdur. 2. CAD-no chest pain noted however, patient has severe CAD in presence of uncontrolled DMII and HTN and has chronic angina. 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 He has had a mild troponin elevation overnight, which is expected likely 2/2 demand in this patient with his level of disease and comorbidities. Again awaiting TTE and Cards eval for disposition. cont med management with ASA, Plavix and meds above. Would recommend increased dose statin to Lipitor 80 if patient could tolerate. 3. DMII-uncontrolled with A1C 9.1. Pt reports sugars at goal but then stated to the diabetic education nurse that if it is elevated he sometimes takes more metformin. Would send him home on at least an increased dose of metformin with close CP follow-up. Insulin may need to be started in the next month if his numbers don't get under control. Currently got one dose of steroids in ER yesterday, and sugar levels are not under control but are decreasing. He ate breakfast this morning, and is on ISS. Appreciate inpatient glycemic pharmacy assistance with inpatient glucose control. 4. COPD-stable, no wheezing. Former smoker. No further indication for steroids at this time. Cont home inhaler therapy. Pt is not on oxygen. 5. HTN-came in with hypertensive urgency. BP is more under control this morning on nitropaste. D/C that now in preparation for possible DC today and restarted his Imdur. DVT proph-heparin SQ FULL CODE Dispo-pending Cards evaluation Vanessa Talbot DO [facility] Hospitalist Total time spent on discharge = 60 minutes This includes examination of the patient, discharge planning, medication reconciliation, and communication with other providers. Discharge Instructions Discharge Instructions Date of Service Sep 29, 2016. Admission Reason for Admission: CHF Discharge Discharge Diagnosis / Problem: CHF exacerbation, CAD Discharge Goals Goal(s): Prevent Disease Progression Activity Recommendations Activity Limitations: per Instructions/Follow-up section . Instructions / Follow-Up Instructions / Follow-Up Call your Primary Care doctor if any of the following symptoms or problems start or get worse: * Shortness of breath or difficulty breathing * Wake up at night short of breath * Chest pain * Cough * Swelling of your hands, feet, or legs * More fatigued or tired with your normal activity * Palpitations - sudden fast heart beats WEIGHT * Weigh yourself every morning after using the bathroom. * Use the same scale. * Wear the same amount of clothing. * Write your weight down on a chart. * Call your Primary Care doctor if you gain more than 2-3 pounds in 1-2 days. MEDICATIONS * Use this discharge instruction sheet for medication instructions. * Take your medications at the time your doctor ordered. * Do not skip a dose of your medicines. * If you miss a dose of medicine, take it as soon as possible, but DO NOT DOUBLE A DOSE. * Read your medicine information when you get home. * Know all of the side effects of your medicine. If in doubt, ask your pharmacist * Call your Primary Care doctor's office if you have any side effects. * Be sure all of your doctors know what medicine and herbs you take (including cold, flu, and herbal medicine). Take the following with you to your follow-up doctor appointments: * Weight Chart * Medication List * List of questions Do not drink excessive alcohol, beer or wine. Please take all medications as instructed. Please note, your metformin was changed to 1000mg XR twice daily. You have a follow-up appointment with Dr. Marc for follow-up from this hospitalization on 10/05 @ 12:45pm at the [facility] [address] location. Please follow-up with Cardiology (Dr. Toledo) as instructed and continue taking Lasix every day instead of as needed. It was a pleasure taking care of you! Call if you have any questions or problems. You can reach a [facility] hospitalist on duty at [facility] 24 hours a day by calling [phone]. Take care of yourself. Vanessa Talbot, [place] Hospitalist Additional Copies To Zeeshan Marc MD; Donaldo Toledo MD
[2016-09-29] MEDS ORDERED: ISOSORBIDE MONONITRATE 60 MG TABCR PO SCH (21:00)
[2016-09-30] MEDS ORDERED: INSULIN GLARGINE SOLOSTAR 100 UNITS/ML 3 ML PEN SC SCH (09:00)
== END 2016-09-29 12:55 | disposition home or self-care (01) | DRG 293 ==
LOC: EDBD 15:54 → C.EDB 15:55 → C.2T 19:13 → ENRESERV 19:26
PROVIDERS: ADMIT Internal Medicine; ATTEND Hospitalist
DX: I11.0 Hypertensive heart disease with heart failure (principal); I50.23 Acute on chronic systolic (congestive) heart failure; I16.0 Hypertensive urgency; I25.119 Atherosclerotic heart disease of native coronary artery with unspecified angina pectoris; J44.9 Chronic obstructive pulmonary disease, unspecified; E11.65 Type 2 diabetes mellitus with hyperglycemia; E78.5 Hyperlipidemia, unspecified; I25.5 Ischemic cardiomyopathy; Z79.82 Long term (current) use of aspirin; Z79.02 Long term (current) use of antithrombotics/antiplatelets; Z79.899 Other long term (current) drug therapy; Z95.1 Presence of aortocoronary bypass graft; Z95.5 Presence of coronary angioplasty implant and graft; Z83.3 Family history of diabetes mellitus; Z87.891 Personal history of nicotine dependence

== ENCOUNTER 2017-02-28 15:38 | Inpatient (IN) | payer OTHER ==
[~2017-02-28] VITALS: Ht 175.3 cm; Wt 71.5 kg
[~2017-02-28 15:38] MED LIST changes: -GLC500 PO; +METF1TAB53 PO; +METO100T44 PO; -METO1TAB69 PO; -MRLP17 PO; +NTRGSL/4 UT; -NTRSLP4 SL; -OXYC-57 PO; +POLY335019 PO
[2017-02-28] MEDS ORDERED: MoRPHine SULFATE 4 MG/ML 1 ML CARP\\VIAL IV STA (16:35)
[2017-02-28] MEDS ORDERED: ONDANSETRON INJ 2 MG/ML 2 ML VIAL IV STA (16:35)
[2017-02-28 17:15] LABS: MEAN CORPUSCULAR HGB CONC 32.8 g/dl (32-36)
[2017-02-28 17:24] LABS: INR 0.9 (0.9-1.1); PARTIAL THROMBOPLASTIN RATIO 0.9
[2017-02-28 17:34] LABS: BUN/CREATININE RATIO 18.8 (10-20); CALCIUM 8.7 mg/dl (8.5-10.1); CREATININE 0.95 mg/dl (0.60-1.40); POTASSIUM 4.4 mmol/L (3.5-5.1)
[2017-02-28 17:37] LABS: MEAN CELL VOLUME 83.2 fL (80-100); MEAN CORPUSCULAR HEMOGLOBIN 27.2 pg (25-34); RED BLOOD COUNT 4.81 M/uL (4.7-6.1); WHITE BLOOD COUNT 7.82 K/uL (4.8-10.8)
[2017-02-28 17:42] LABS: BASO % 0.3 %; BASO ABS # 0.02 K/uL (0-0.2); COMPLETE YES; EOS % 0.1 %; IG% 2.6 %; LYMPH % 9.7 %; LYMPH ABS # 0.76 K/uL (1.2-3.4); MEAN PLATELET VOLUME 12.7 fL (7.4-10.4); MONO % 3.1 %; NEUT % 84.2 %; PLATELET COUNT 149 K/uL (130-400); PLT ESTIMATE NORMAL
[2017-02-28 17:51] LABS: BETA-HYDROXYBUTYRATE 3.51 mg/dL (0.2-2.81)
--- NOTE | 2017-02-28 17:55 | DIAGNOSTIC IMAGING REPORT ---
L VENOUS DOPP LOWER EXT UNILAT HISTORY: 71 years-old Male left leg eval for DVT acute left leg swelling with concern for deep venous thrombosis COMPARISON: None available TECHNIQUE: Multiple real-time sonogram images of the left lower extremity deep venous structures were obtained assessing grayscale appearance, color and spectral flow FINDINGS: There is normal flow, phasicity, compressibility and augmentation of the left lower extremity deep venous structures. IMPRESSION: No sonographic evidence of deep venous thrombosis. The above report was generated using voice recognition software. It may contain grammatical, syntax or spelling errors. Electronically signed by: Levi Adhikari M.D. 02/28/2017 5:54 PM Dictated Date/Time: 02/28/2017 5:53 PM
--- NOTE | 2017-02-28 18:08 | DIAGNOSTIC IMAGING REPORT ---
CHEST ONE VIEW PORTABLE CLINICAL HISTORY: eval for pna dyspnea COMPARISON STUDY: 09/28/2016 FINDINGS: Moderate stable cardiomegaly. Prior median sternotomy. Prominent pulmonary vasculature. Diaphragms smooth. IMPRESSION: Congestive failure similar as compared to the prior study. Moderate stable cardiomegaly. The above report was generated using voice recognition software. It may contain grammatical, syntax or spelling errors. Electronically signed by: Junito Shirley M.D. 02/28/2017 6:06 PM Dictated Date/Time: 02/28/2017 6:05 PM
--- NOTE | 2017-02-28 18:11 | DIAGNOSTIC IMAGING REPORT ---
L-SPINE MIN 4 VIEWS ROUTINE HISTORY: Trauma eval for fx COMPARISON: None. FINDINGS: There is no fracture. No subluxation. Moderate degenerative disc change throughout. Degenerative sclerotic changes of the vertebral endplates. Atherosclerotic change abdominal and pelvic arterial vasculature. Nonobstructive bowel pattern. Mild compression deformity T11 considered old IMPRESSION: No fracture or subluxation within the lumbar spine. Degenerative change as noted. Mild compression deformity T11 considered old The above report was generated using voice recognition software. It may contain grammatical, syntax or spelling errors. Electronically signed by: Junito Shirley M.D. 02/28/2017 6:09 PM Dictated Date/Time: 02/28/2017 6:07 PM
[2017-02-28] MEDS ORDERED: METF1000 PO (18:22)
--- NOTE | 2017-02-28 18:55 | EMERGENCY ROOM VISIT NOTE ---
History Report prepared by Sonido: Estrellita Spring Under the Supervision of: Dr. Ryder Martin M.D. First contact with patient: 16:29 Chief Complaint: LEG PAIN,LEG INJURY Stated Complaint: SWELLING AND PAIN IN RIGHT LEG History of Present Illness The patient is a 71 year old male who presents to the Emergency Room with complaints of worsening left leg pain for the past two weeks. The patient reports pain from his left lower back and down into the back of his left thigh. He notes some swelling to the left leg. His pain is worsened with standing or walking and alleviated with sitting. The patient rates his pain as an 8/10 in severity. He reports a slight cough. He has chronic shortness of breath but denies any new or worsening shortness of breath. He denies fever, chest pain, upper back pain, numbness, and incontinence of urine or stool. He denies any history of PE. The patient has a history of sciatica. Source of History: patient Onset: 2 weeks ago Position: leg (left) Symptom Intensity: 8/10 Timing: worsening Modifying Factors (Worsening): other (standing/walking) Modifying Factors (Relieving): other (sitting) Associated Symptoms: + cough, + back pain (lower), No fevers, No chest pain , No numbness Note: Pt denies incontinence. Review of Systems See HPI for pertinent positives & negatives. A total of 10 systems reviewed and were otherwise negative. Past Medical & Surgical Medical Problems: (1) Cellulitis of right groin (2) Cellulitis of right hand (3) CHF (congestive heart failure) (4) HTN, DM, HLD, COPD (5) STEMI (ST elevation myocardial infarction) Family History Diabetes mellitus Social History Smoking Status: Former Smoker Smokeless Tobacco Use: No Alcohol Use: none Drug Use: none Marital Status: Housing Status: lives with significant other Occupation Status: employed Current/Historical Medications Scheduled Aspirin (Aspirin Ec), 81 MG PO DAILY Atorvastatin (Lipitor), 40 MG PO DAILY Clopidogrel (Plavix), 75 MG PO DAILY Isosorbide Mononitrate (Imdur Ext Rel), 60 MG PO BID Lisinopril (Zestril), 5 MG PO QPM Metformin Hcl (Glucophage), 1,000 MG PO BID Metoprolol Succ (Toprol Xl) (Toprol-Xl ), 100 MG PO BID Scheduled PRN Furosemide (Lasix), 40 MG PO DAILY PRN for " NEEDED" PER PT. Ipratropium-Albuterol (Combivent Respimat), 1 PUFFS INH QID PRN for Wheezing Nitroglycerin (Nitrostat), 0.4 MG UT PRN PRN for Chest Pain Polyethylene Glycol 3350 (Miralax), 17 GM PO DAILY PRN for Constipation Allergies Coded Allergies: No Known Allergies (Verified , 02/28/17) Physical Exam Vital Signs Date Time Temp Pulse Resp B/P (MAP) Pulse Ox O2 Delivery O2 Flow Rate FiO2 02/28/17 18:08 72 16 165/115 96 Room Air 02/28/17 17:08 69 26 98 02/28/17 16:53 63 02/28/17 16:49 97 Room Air 02/28/17 15:42 36.4 67 18 156/86 96 Room Air Physical Exam Constitutional: Vital signs reviewed. Eyes: Pupils are equal round reactive to light. Conjunctiva are noninjected. ENT: Pharynx is clear without erythema or exudate. Mucous membranes are moist. Neck supple without meningeal signs. Respiratory: Minimal bibasilar crackles. Breath sounds are equal bilaterally. Cardiovascular: Regular rate and rhythm. No rubs or gallops. GI: Soft, nondistended and nontender. Bowel sounds are present. Musculoskeletal: No peripheral edema. No lower extremity tenderness. Integumentary: No cyanosis. Neurological: The patient is awake and alert. No focal deficits.Normal motor and sensation throughout lower extremities. Psychiatric: Normal affect. Medical Decision & Procedures ER Provider Diagnostic Interpretation: Radiology results as stated below per my review and the radiologist's interpretation: L-SPINE MIN 4 VIEWS ROUTINE FINDINGS: There is no fracture. No subluxation. Moderate degenerative disc change throughout. Degenerative sclerotic changes of the vertebral endplates. Atherosclerotic change abdominal and pelvic arterial vasculature. Nonobstructive bowel pattern. Mild compression deformity T11 considered old IMPRESSION: No fracture or subluxation within the lumbar spine. Degenerative change as noted. Mild compression deformity T11 considered old The above report was generated using voice recognition software. It may contain grammatical, syntax or spelling errors. Electronically signed by: Junito Shirley M.D. 02/28/2017 6:09 PM CHEST ONE VIEW PORTABLE FINDINGS: Moderate stable cardiomegaly. Prior median sternotomy. Prominent pulmonary vasculature. Diaphragms smooth. IMPRESSION: Congestive failure similar as compared to the prior study. Moderate stable cardiomegaly. The above report was generated using voice recognition software. It may contain grammatical, syntax or spelling errors. Electronically signed by: Junito Shirley M.D. 02/28/2017 6:06 PM L VENOUS DOPP LOWER EXT UNILAT FINDINGS: There is normal flow, phasicity, compressibility and augmentation of the left lower extremity deep venous structures. IMPRESSION: No sonographic evidence of deep venous thrombosis. The above report was generated using voice recognition software. It may contain grammatical, syntax or spelling errors. Electronically signed by: Levi Adhikari M.D. 02/28/2017 5:54 PM Laboratory Results 02/28/17 16:41 Red Blood Count 4.81, Mean Corpuscular Volume 83.2, Mean Corpuscular Hemoglobin 27.2, Mean Corpuscular Hemoglobin Concent 32.8, Mean Platelet Volume 12.7, Neutrophils (%) (Auto) 84.2, Lymphocytes (%) (Auto) 9.7, Monocytes (%) (Auto) 3.1, Eosinophils (%) (Auto) 0.1, Basophils (%) (Auto) 0.3, Neutrophils # (Auto) 6.59, Lymphocytes # (Auto) 0.76, Monocytes # (Auto) 0.24, Eosinophils # (Auto) 0.01, Basophils # (Auto) 0.02 02/28/17 16:41 Test 02/28/17 16:41 02/28/17 16:51 White Blood Count 7.82 K/uL (4.8-10.8) Red Blood Count 4.81 M/uL (4.7-6.1) Hemoglobin 13.1 g/dL (14.0-18.0) Hematocrit 40.0 % (42-52) Mean Corpuscular Volume 83.2 fL (80-100) Mean Corpuscular Hemoglobin 27.2 pg (25-34) Mean Corpuscular Hemoglobin Concent 32.8 g/dl (32-36) Platelet Count 149 K/uL (130-400) Mean Platelet Volume 12.7 fL (7.4-10.4) Neutrophils (%) (Auto) 84.2 % Lymphocytes (%) (Auto) 9.7 % Monocytes (%) (Auto) 3.1 % Eosinophils (%) (Auto) 0.1 % Basophils (%) (Auto) 0.3 % Neutrophils # (Auto) 6.59 K/uL (1.4-6.5) Lymphocytes # (Auto) 0.76 K/uL (1.2-3.4) Monocytes # (Auto) 0.24 K/uL (0.11-0.59) Eosinophils # (Auto) 0.01 K/uL (0-0.5) Basophils # (Auto) 0.02 K/uL (0-0.2) RDW Standard Deviation 49.6 fL (36.4-46.3) RDW Coefficient of Variation 16.6 % (11.5-14.5) Immature Granulocyte % (Auto) 2.6 % Immature Granulocyte # (Auto) 0.20 K/uL (0.00-0.02) Platelet Estimate NORMAL Red Blood Cell Morphology Unremarkable Prothrombin Time 10.0 SECONDS (9.0-12.0) Prothromb Time International Ratio 0.9 (0.9-1.1) Activated Partial Thromboplast Time 23.5 SECONDS (21.0-31.0) Partial Thromboplastin Ratio 0.9 Anion Gap 11.0 mmol/L (3-11) Est Creatinine Clear Calc Drug Dose 72.4 ml/min Estimated GFR () 93.6 Estimated GFR (Non- 80.8 BUN/Creatinine Ratio 18.8 (10-20) Calcium Level 8.7 mg/dl (8.5-10.1) Beta-Hydroxybutyric Acid 3.51 mg/dL (0.2-2.81) Bedside Troponin I 0.170 ng/ml (0-0.045) Laboratory results as reviewed by me. Medications Administered Medications (Trade) Dose Ordered Sig/Margi Route Start Time Stop Time Status Last Admin Dose Admin Morphine Sulfate (MoRPHine SULFATE INJ) 4 mg NOW STAT IV 02/28/17 16:35 02/28/17 16:41 DC 02/28/17 17:02 4 MG Ondansetron HCl (Zofran Inj) 4 mg NOW STAT IV 02/28/17 16:35 02/28/17 16:41 DC 02/28/17 17:02 4 MG ECG Indication: SOB/dyspnea Rate (beats per minute): 60 Rhythm: normal sinus Findings: T-wave inversion (Lateral), no ectopy Change: Repeat ECG reveals a sinus rhythm with a rate of 55 bpm. Persistent T-wave inversions in the lateral leads. No ectopy seen. ED Course 1629: The patient was evaluated in room B6. A complete history and physical exam was performed. 1635: Zofran 4 mg IV, Morphine sulfate 4 mg IV 181: I discussed the patient's case with him. He is an Emergency Department Physician. We discussed the risks and benefits of CTA to rule our pulmonary embolism. The patient verbalized agreement and understanding of the treatment plan. The patient will be evaluated for further management. Medical Decision This is a 71-year-old male who presents with left leg pain and shortness of breath. Differential diagnosis includes DVT, pulmonary embolism, lumbar radiculopathy, compression fracture, acute coronary syndrome. I did perform a limited focused review of portions of the patient's old chart on the electronic medical record. The patient was admitted in August for CHF exacerbation. I did evaluate the patient as noted above. Kaitlyn etienne is presenting with left leg pain radiating from his lower back. It seems to be worse with movement and better when he lays still. He does note some swelling that is asymmetric compared to the right leg. IV access was established. The patient was placed on a continuous case monitor. I did order and personally review the patient' s 12-lead EKG and chest/lumbar spine x-ray as described above. His 12-lead EKG demonstrates T-wave inversions laterally as described above. I did order and review the patient's blood work as noted in the electronic medical record. ACEs troponin is elevated. Renal function is unremarkable. I did order Doppler ultrasound of the left lower extremity. I did review the images myself as well as the radiology report as described above. There is no evidence of DVT. I did discuss the test results with the patient. He is a physician. He does now state that he did have some chest pain yesterday but it was very brief. He is followed by Dr. Donaldo Toledo. He did see the patient here in the emergency department. He did not recommend any anticoagulation or acute intervention other than hospitalization for repeat enzymes. Should his enzymes elevate he will be heparinized. I did discuss case with the hospitalist and oil field caser. I did also order a CT of the chest to rule out PE which is currently pending. Medication Reconcilliation Current Medication List: was personally reviewed by me Blood Pressure Screening Patient's blood pressure: Normal blood pressure Consults Time Called: 1814 Consulting Physician: Dr. Talbot -[facility] Hospitalist Service Returned Call: [address] Talbot of the [facility] Hospitalist Service. We discussed the patient and his results. The patient will be further evaluated by sommer. Additional Consults: Time Called: 1824 Consulted Physician: Dr. Toledo -Cardiology Returned Call: 1829 Additional Comments: I discussed the patient's case with Dr. Toledo of Cardiology. He recommends no Heparin at this time, and will come evaluate the patient. Impression Primary Impression: Dyspnea Additional Impressions: Left leg pain Elevated troponin Scribe Attestation The scribe's documentation has been prepared under my direct and personally reviewed by me in its entirety. I confirm that the note above accurately reflects all work, treatment, procedures, and medical decision making performed by me. Departure Information Dispostion Being Evaluated By Hospitalist Referrals No Doctor, Assigned (PCP) Patient Instructions My [facility] Problem Qualifiers Primary Impression: Dyspnea Dyspnea type: unspecified Qualified Codes: R06.00 - Dyspnea, unspecified
--- NOTE | 2017-02-28 19:41 | DIAGNOSTIC IMAGING REPORT ---
(CHEST FOR PE) ANGIO WITH CT DOSE: 337.27 mGy.cm HISTORY: 71 years-old Male acute right leg swelling with concern for pulmonary thromboembolic disease. Acute dyspnea. TECHNIQUE: Multiple CTA images of the chest were obtained after the intravenous administration of 112 ml Optiray 320. Coronal and sagittal MIPS were obtained from the axial data set and were submitted for review. A dose lowering technique was utilized adhering to the principles of ALARA. COMPARISON: Chest radiographs of same day, CTA of the chest 03/25/2008. FINDINGS: CTA: Moderate multichamber cardiac enlargement. Prior median sternotomy and CABG. Extensive [place] coronary arterial calcifications also noted. There are calcifications of the aortic annulus. Moderate atherosclerosis of the thoracic aorta without aneurysm or dissection. The left vertebral artery emanates strictly from the aortic arch. Imaged proximal great vessels appear patent. There is prominent atherosclerosis of the imaged upper abdominal aorta. The distal segmental and subsegmental branches are not well seen secondary to respiratory motion. No focal filling defects identified to suggest pulmonary thromboembolic disease. CT CHEST: No dominant thyroid nodule. No pathologic adenopathy of the chest identified. There is a trace right pleural effusion. No pneumothorax. Linear subsegmental consolidative opacities of the inferior segment lingula and basal left lower lobe suggest atelectasis/scarring. No lobar airspace consolidations to suggest pneumonia. Central airways are patent. No acute abnormality of the imaged upper abdomen. Soft tissues are unremarkable. Multilevel endplate spurring of the spine. IMPRESSION: 1. Mildly limited study secondary to respiratory motion. Within the limitations of the study, there is no acute aortic pathology or evidence of pulmonary thromboembolic disease. 2. Trace right pleural effusion. No lobar airspace consolidations to suggest pneumonia. 3. Prior median sternotomy and CABG. 4. Moderate multichamber cardiac enlargement. The above report was generated using voice recognition software. It may contain grammatical, syntax or spelling errors. Electronically signed by: Levi Adhikari M.D. 02/28/2017 7:40 PM Dictated Date/Time: 02/28/2017 7:33 PM
[2017-02-28] MEDS ORDERED: NITROGLYCERIN 0.4 MG SL PER TAB CHARGE SL PRN (19:45)
[2017-02-28] MEDS ORDERED: ONDANSETRON INJ 2 MG/ML 2 ML VIAL IV PRN (20:00)
[2017-02-28] MEDS ORDERED: ACETAMINOPHEN 325 MG TAB PO PRN (20:00)
--- NOTE | 2017-02-28 20:12 | DIAGNOSTIC IMAGING REPORT ---
L PELVIS/UNILATERAL HIP 2-3VIEWS HISTORY: 71 years-old Male L hip pain acute left-sided head pain and swelling without reported trauma COMPARISON: Pelvis CT 03/21/2016 TECHNIQUE: AP view the pelvis with 2 views of the left hip FINDINGS: The bones are mildly demineralized. No pelvic ring fracture. Sacrum appears intact. Degenerative changes are seen within the lower lumbar spine. Moderate osteoarthritis of the bilateral hips. The left femur appears intact without acute fracture or dislocation. Vascular calcifications are noted. There is contrast within the urinary bladder. 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 IMPRESSION: 1. Degenerative changes as above without acute fracture or dislocation. 2. Bladder diverticulum suggests sequela of chronic bladder outlet obstruction. The above report was generated using voice recognition software. It may contain grammatical, syntax or spelling errors. Electronically signed by: Levi Adhikari M.D. 02/28/2017 8:11 PM Dictated Date/Time: 02/28/2017 8:08 PM
[2017-02-28] MEDS ORDERED: MoRPHine SULFATE 2 MG/ML CARP IV PRN (20:15)
[2017-02-28] MEDS ORDERED: FUROSEMIDE 40 MG TAB PO PRN (20:15)
[2017-02-28] MEDS ORDERED: ACETAMINOPHEN 500 MG TAB PO PRN (20:15)
[2017-02-28] MEDS ORDERED: ALBUT/IPRATROP 3MG/0.5MG NEB 3 ML VIAL INH PRN (20:15)
[2017-02-28] MEDS ORDERED: GLUCOSE 40% GEL 15 GM TUBE PO PRN (20:30)
[2017-02-28] MEDS ORDERED: DEXTROSE 50% 50 ML SYR IV PRN (20:30)
[2017-02-28] MEDS ORDERED: GLUCAGON FOR INJ 1 MG VIAL SQ PRN (20:30)
[2017-02-28] MEDS ORDERED: GLUCOSE 10 TABS/TUBE PO PRN (20:30)
[2017-02-28 20:45] VITALS: O2SAT 97
[2017-02-28] MEDS ORDERED: IV FLUIDS COMPLETED PRN (20:45)
--- NOTE | 2017-02-28 21:08 | History and Physical ---
History & Physical Date & Time of Service: Feb 28, 2017 at 20:23 Chief Complaint: Swelling And Pain In Right Leg Primary Care Physician: No Doctor, Assigned History of Present Illness Source: patient, clinic records, hospital records Pt is 71 y/o M with PMH CAD with CABG, COPD, DM II, HTN, hyperlipidemia presented to ER with c/o Left back pain with radiation to L hip and L leg. Pt states had hx low back pain x many years. Hx L back pain with L leg pain x 1 year. Worse past 4-5 weeks. Reports aching pain left low back with sharp radiation down left buttock to left posterior leg with walking or standing. Pain typically stopped at posterior knee, sometimes radiates to left lateral foot. Denies any falls or leg weakness, but prolonged standing causes pain and makes him feel like he needs to sit. Denies loss control of bowel/bladder. Denies leg paresthesias. Follows with pain management in [place]. Had injection approx 1.5 month ago and states scheduled for another on 03/05/17. He doesn't feel the first injection helped much. Uses Aspercreme patch to L back with some relief of pain. Takes Tylenol and Motrin 2-3 times a day sometimes with relief of back pain, and sometimes not. Reports hx known spinal stenosis and lumbar disc disease. Reports hx MRI couple of years ago. Pt follows with Dr Toledo - [facility] [place] cardiology. He reports hx chronic intermittent anterior chest pain which occurs sometimes a couple of times a month. He reports uses on SL nitro with relief within minutes. Denies any worsening. Reports yesterday took 1 nitro for anterior aching CP that lasted less than one minute. Reports hx chronic intermittent SOB with exertion but denies any worsening. He has lasix to use, but uses it prn and hasn't used it recently or felt like he needed it. Hx elevated troponin in past. He felt like his left leg looked a little swollen past 2 weeks, and was worried about a DVT. 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 Reports fasting BS in am 100-110. Denies fever/chills, diaphoresis, N/ V/D/C, [place], dizziness, syncope, vision changes, neck pain, orthopnea, palpitations, cough, sore throat, choking, otalgia, rhinorrhea, abdominal pain, rashes, urinary symptoms. In ER troponin POC: 0.17, EKG: rate 55 sinus with T wave inversion lateral leads. CT chest negative for PE, negative u/s LE for DVT. Hip xray - degenerative changes. lumbar xray considered old T11 compression fx. Pt denies any CP or SOB currently. He was given zofran and morphine for leg pain with relief. Hx echo on last admission for CHF in 08/2016 EF: 40-45% Past Medical/Surgical History Medical Problems: (1) Cellulitis of right groin Status: Resolved (2) Cellulitis of right hand Status: Resolved (3) CHF (congestive heart failure) Status: Resolved (4) COPD (chronic obstructive pulmonary disease) Status: Chronic (5) DM type 2 (diabetes mellitus, type 2) Status: Chronic (6) HTN (hypertension) Status: Chronic (7) Hyperlipidemia Status: Chronic (8) STEMI (ST elevation myocardial infarction) Status: Resolved Surgical Problems: (1) Hx of CABG Permanent Comment: quad - 1997 Status: Resolved Family History Diabetes mellitus Social History Smoking Status: Former Smoker (1ppd x 40 years, quit 1997) Smokeless Tobacco Use: No Alcohol Use: socially Drug Use: none Marital Status: Housing status: lives with family Occupational Status: employed Immunizations History of Influenza Vaccine: Yes History of Tetanus Vaccine?: Yes History of Pneumococcal: No History of Hepatitis B Vaccine: Yes Multi-Drug Resistant Organisms History of MDRO: No Allergies Coded Allergies: No Known Allergies (Verified , 02/28/17) Home Medications Scheduled Aspirin (Aspirin Ec), 81 MG PO DAILY Atorvastatin (Lipitor), 40 MG PO DAILY Clopidogrel (Plavix), 75 MG PO DAILY Isosorbide Mononitrate (Imdur Ext Rel), 60 MG PO BID Lisinopril (Zestril), 5 MG PO QPM Metformin Hcl (Glucophage), 1,000 MG PO BID Metoprolol Succ (Toprol Xl) (Toprol-Xl ), 100 MG PO BID Scheduled PRN Furosemide (Lasix), 40 MG PO DAILY PRN for " NEEDED" PER PT. Ipratropium-Albuterol (Combivent Respimat), 1 PUFFS INH QID PRN for Wheezing Nitroglycerin (Nitrostat), 0.4 MG UT PRN PRN for Chest Pain Polyethylene Glycol 3350 (Miralax), 17 GM PO DAILY PRN for Constipation Review of Systems Constitutional: No fever, No chills, No sweats, No weight loss, No weakness, No fatigue Eyes: No worsening of vision, No eye pain, No redness, No discharge ENT: No hearing loss, No unusual epistaxis, No nasal symptoms, No sore throat, No tinnitus, No trouble swallowing Respiratory: + problem reported (see HPI), No cough, No sputum, No wheezing, No hemoptysis Cardiovascular: + problem reported (see HPI), No PND, No palpitations Abdomen: No pain, No nausea, No vomiting, No diarrhea, No constipation, No GI bleeding Musculoskeletal: + problem reported (see HPI) Genitourinary - Male: No hematuria, No dysuria, No urinary frequency, No urinary urgency Neurologic: No memory loss, No paralysis, No vertigo Psychiatric: No depression symptoms, No anxiety Endocrine: No fatigue, No excessive thirst, No excessive urination Hematologic / Lymphatic: No abnormal bleeding/bruising, No clotting problems, No night sweats Integumentary: No rash, No itch Physical Exam Vital Signs Date Time Temp Pulse Resp B/P (MAP) Pulse Ox O2 Delivery O2 Flow Rate FiO2 02/28/17 18:08 72 16 165/115 96 Room Air 02/28/17 17:08 69 26 98 02/28/17 16:53 63 02/28/17 16:49 97 Room Air 02/28/17 15:42 36.4 67 18 156/86 96 Room Air General Appearance: WD/WN, no apparent distress Head: normocephalic, atraumatic Eyes: normal inspection, PERRL, EOMI, sclerae normal ENT: hearing grossly normal, pharynx normal (mucous membranes moist) Neck: supple, no JVD, trachea midline, + pertinent finding (no spinous process tenderness to palpation, ROM intact) Respiratory/Chest: chest non-tender, no respiratory distress, no accessory muscle use, + pertinent finding (faint rales bilateral bases, no wheezing) Cardiovascular: regular rate, rhythm (60), no murmur, normal peripheral pulses Abdomen/GI: normal bowel sounds, non tender, soft Back: normal inspection, no CVA tenderness, + pertinent finding (+tenderness left lateral lumbar paraspinous muscles, no spinous process tenderness to palaption. ROM flexion, rotation reproduces pain. no rashes or skin discolorations noted. +straight leg raise to L at approx 30 degrees. ) Extremities/Musculoskelatal: no calf tenderness, normal capillary refill, non- tender, + pertinent finding (no pitting edema. no significant leg edema noted. ROM intact with tenderness ROM left leg and left hip) Neurologic/Psych: alert, normal mood/affect, oriented x 3 Skin: normal color, warm/dry, no rash Diagnostics Laboratory Results Results Past 24 Hours Test 02/28/17 16:41 02/28/17 16:51 Range/Units White Blood Count 7.82 4.8-10.8 K/uL Red Blood Count 4.81 4.7-6.1 M/uL Hemoglobin 13.1 14.0-18.0 g/dL Hematocrit 40.0 42-52 % Mean Corpuscular Volume 83.2 80-100 fL Mean Corpuscular Hemoglobin 27.2 25-34 pg Mean Corpuscular Hemoglobin Concent 32.8 32-36 g/dl Platelet Count 149 130-400 K/uL Mean Platelet Volume 12.7 7.4-10.4 fL Neutrophils (%) (Auto) 84.2 % Lymphocytes (%) (Auto) 9.7 % Monocytes (%) (Auto) 3.1 % Eosinophils (%) (Auto) 0.1 % Basophils (%) (Auto) 0.3 % Neutrophils # (Auto) 6.59 1.4-6.5 K/uL Lymphocytes # (Auto) 0.76 1.2-3.4 K/uL Monocytes # (Auto) 0.24 0.11-0.59 K/uL Eosinophils # (Auto) 0.01 0-0.5 K/uL Basophils # (Auto) 0.02 0-0.2 K/uL RDW Standard Deviation 49.6 36.4-46.3 fL RDW Coefficient of Variation 16.6 11.5-14.5 % Immature Granulocyte % (Auto) 2.6 % Immature Granulocyte # (Auto) 0.20 0.00-0.02 K/uL Platelet Estimate NORMAL Red Blood Cell Morphology Unremarkable Prothrombin Time 10.0 9.0-12.0 SECONDS Prothromb Time International Ratio 0.9 0.9-1.1 Activated Partial Thromboplast Time 23.5 21.0-31.0 SECONDS Partial Thromboplastin Ratio 0.9 Sodium Level 138 136-145 mmol/L Potassium Level 4.4 3.5-5.1 mmol/L Chloride Level 103 98-107 mmol/L Carbon Dioxide Level 24 21-32 mmol/L Anion Gap 11.0 3-11 mmol/L Blood Urea Nitrogen 18 7-18 mg/dl Creatinine 0.95 0.60-1.40 mg/dl Est Creatinine Clear Calc Drug Dose 72.4 ml/min Estimated GFR () 93.6 Estimated GFR (Non- 80.8 BUN/Creatinine Ratio 18.8 10-20 Random Glucose 308 70-99 mg/dl Calcium Level 8.7 8.5-10.1 mg/dl Beta-Hydroxybutyric Acid 3.51 0.2-2.81 mg/dL Bedside Troponin I 0.170 0-0.045 ng/ml Diagnostic Radiology CXR: IMPRESSION: Congestive failure similar as compared to the prior study. Moderate stable cardiomegaly. CT CHEST IMPRESSION: 1. Mildly limited study secondary to respiratory motion. Within the limitations of the study, there is no acute aortic pathology or evidence of pulmonary thromboembolic disease. 2. Trace right pleural effusion. No lobar airspace consolidations to suggest pneumonia. 3. Prior median sternotomy and CABG. 4. Moderate multichamber cardiac enlargement. U/S LLE: IMPRESSION: No sonographic evidence of deep venous thrombosis. HIP XRAY: IMPRESSION: 1. Degenerative changes as above without acute fracture or dislocation. 2. Bladder diverticulum suggests sequela of chronic bladder outlet obstruction. LSPINE XRAY IMPRESSION: No fracture or subluxation within the lumbar spine. Degenerative change as noted. Mild compression deformity T11 considered old EKG EKG: thad 55, appears to be sinus, T wave inversion lateral leads Impression Assessment and Plan ELEVATED TROPONIN Pt with hx elevated troponin in past. Hx CABG, CAD. Hx chronic intermittent CP and exertional SOB. Denies any worsening SOB or CP. hx anterior chest pain yesterday lasting less than a minute, took 1 nitro with relief. POC Troponin 0.17 in ER. EKG: sinus thad 55, T wave inversion lateral lead. Negative LLE U/ S for DVT. Negative CT chest for PE. CXR: congestive HF as compared to previous. -Monitor Vitals -Repeat EKG in am -Will trend cardiac enzymes -lipid panel in am -continue lipitor -continue ASA -continue metoprolol -continue lisinopril -continue plavix -continue lasix - pt uses prn and doesn't feel needs currently, ordered prn -Nitro prn CP and repeat EKG for CP -cbc, prp in am -diet NPO after midnight -cardiology consult -hold on echo until recommendations by cardiology RADICULAR BACK PAIN/L HIP PAIN Suspect lumbar disc disease. Pt reports known spinal stenosis. Pt follows with [facility] pain management, receiving injections. Lspine xray no acute fracture , suspected old T11 compression fx. Hip xray: degenerative changes, no acute fx -Tylenol -Tramadol prn -Morphine prn breakthrough pain -lidocaine patch -suggest f/u pain management out pt COPD Denies any worsening. No exacerbation. -duonebs prn DM II Pt reports fasting BS 100-110. glucose in ER 308. urine added -A1c in am -hold metformin -NovoLog sliding scale per protocol -Lantus 7u BID DVT PROPHYLAXIS -heparin SQ DISPOSITION -admit tele -Full Code as per discussion with pt -Follows with Dr Marc for routine care - however hasn't seen for awhile Pt was seen with Dr Talbot. See addendum ADDENDUM: I have seen and examined the patient and agree with the assessment and plan as above with the following exceptions. On my exam the patient had a difficult time standing at the bedside or standing straight up because of pain. He had TTP along the L lower lumbar and L PSIS which extended into the L piriformis. There was also slight GTB pain on the L hip and IT band discomfort but these were not as significant as the lower back pain. SLR test was negative and no lower extremity focal deficits were appreciated. Lungs were clear to auscultation and heart exam was normal. As he denies any chest pain or dyspnea, and has a chronically elevated trop in setting of significant heart disease; apprec Dr. Toledo input who knows him well. Main issue is the lumbar radicular pain. Xrays reveal DJD/OA. We settled on trial of Tylenol scheduled 1000mg PO q8h and gabapentin 300 qHS and lidocaine patch. PT/OT to assess in am. Antione, DO Level of Care Telemetry Resuscitation Status FULL RESUSCITATION VTE Prophylaxis VTE Risk Assessment Done? Y/N: Yes Risk Level: Moderate Given or contraindicated: Unfractionated heparin SQ Additional Copies To Zeeshan Marc MD
[2017-02-28] MEDS ORDERED: GABAPENTIN 300 MG CAP PO ONE (21:40)
[2017-02-28 21:45] VITALS: BP 156/67; PULSE 66; TEMP 36.4; O2SAT 97; BMI 24.5
[2017-02-28] MEDS: ISOSORBIDE MONONITRATE 60 MG TABCR PO SCH (22:40)
[2017-02-28] MEDS: LIDODERM (LIDOCAINE) PATCH 5% TD SCH (22:40)
[2017-02-28] MEDS: LISINOPRIL 5 MG TAB PO SCH (22:41)
[2017-02-28] MEDS: METOPROLOL SUCC 50MG EXT REL TAB PO SCH (22:41)
[2017-02-28] MEDS: ACETAMINOPHEN 500 MG TAB PO SCH (22:42)
[2017-02-28] MEDS: INSULIN ASPART 100 UNITS/ML 3 ML PEN SC SCH (22:48)
[2017-02-28] MEDS: INSULIN GLARGINE SOLOSTAR 100 UNITS/ML 3 ML PEN SC SCH (22:49)
[2017-02-28] MEDS: HEPARIN SOD 5000 UNIT/0.5 ML CARP SQ SCH (22:50)
[2017-02-28 23:35] VITALS: BP 147/56; PULSE 65; TEMP 36.1; O2SAT 96
[2017-03-01] VITALS (10 sets, daily range): BP systolic 127–149; BP diastolic 62–88; PULSE 54–62; TEMP 36.4–36.7; O2SAT 94–98; Ht 175.3 cm; Wt 71.5 kg
[2017-03-01 05:19] LABS: URINE APPEARANCE CLEAR (CLEAR); URINE BILIRUBIN NEG (NEG); URINE COLOR YELLOW; URINE NITRITE NEG (NEG); URINE SPECIFIC GRAVITY > 1.045 (1.000-1.030); UROBILINOGEN NEG (NEG); ZZUR CULT IF INDIC CLEAN CATCH NO
[2017-03-01 05:33] LABS: MANUAL MICROSCOPIC REQUIRED? NO; REVIEW REQ? NO
[2017-03-01 05:42] LABS: HEMATOCRIT 34.4 % (42-52); MEAN CELL VOLUME 82.7 fL (80-100); MEAN CORPUSCULAR HEMOGLOBIN 26.4 pg (25-34); MEAN PLATELET VOLUME 12.2 fL (7.4-10.4); PLATELET COUNT 137 K/uL (130-400); RED BLOOD COUNT 4.16 M/uL (4.7-6.1); WHITE BLOOD COUNT 6.26 K/uL (4.8-10.8)
[2017-03-01] MEDS: ACETAMINOPHEN 500 MG TAB PO SCH ×3 (06:00→20:38)
[2017-03-01 06:01] LABS: ESTIMATED AVERAGE GLUCOSE 217 mg/dl
[2017-03-01 06:15] LABS: BUN/CREATININE RATIO 24.1 (10-20); CALCIUM 8.2 mg/dl (8.5-10.1); CREATININE 0.78 mg/dl (0.60-1.40); HA1C FLAG Peak Unknown (Normal); POTASSIUM 3.7 mmol/L (3.5-5.1)
[2017-03-01 06:22] LABS: CHOLESTEROL/HDL RATIO 4.3; CKMB/CK RATIO 4.4 (0-3.0)
[2017-03-01] MEDS: TRAMADOL HCL 50 MG TAB PO PRN ×3 (06:23→23:44)
[2017-03-01] MEDS: HEPARIN SOD 5000 UNIT/0.5 ML CARP SQ SCH ×3 (06:23→20:41)
[2017-03-01] MEDS: INSULIN ASPART 100 UNITS/ML 3 ML PEN SC SCH ×4 (07:00→20:40)
[2017-03-01] MEDS: ASPIRIN 81 MG ECTAB PO SCH (08:25)
[2017-03-01] MEDS: ATORVASTATIN 20 MG TAB PO SCH (08:26)
[2017-03-01] MEDS: ISOSORBIDE MONONITRATE 60 MG TABCR PO SCH ×2 (08:26→20:36)
[2017-03-01] MEDS: METOPROLOL SUCC 50MG EXT REL TAB PO SCH ×2 (08:26→20:36)
[2017-03-01] MEDS: CLOPIDOGREL BISULFATE 75 MG TAB PO SCH (08:26)
[2017-03-01] MEDS: INSULIN GLARGINE SOLOSTAR 100 UNITS/ML 3 ML PEN SC SCH ×2 (08:29→20:42)
[2017-03-01] MEDS: LIDODERM (LIDOCAINE) PATCH 5% TD SCH (09:00)
--- NOTE | 2017-03-01 11:41 | Cardiology Consultation ---
Cardiology Consultation Date of Consultation: Mar 01, 2017. Pt evaluation today including: conversation w/ patient, physical exam, chart review, lab review History of Present Illness 71 year old male presents to [facility] with left back and left leg pain. Patient has a PMH significant for severe CAD and 4 vessel CABG in the . In addition, patient had a NSTEMI in November 2015. Multiple stents have been placed in January [address] 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 Patient also report anginal symptoms two days ago. In the ED, Doppler USG was negative for DVT and Chest CT was negative for PE. Patient described the chest symptoms as substernal tightness relieved with sublingual nitro. Patient denies sharp radiating pains or diaphoresis during the episode. Patient has a h/o chronic angina associated with his CAD. He does report having monthly episodes, but denies increase in the frequency of character of these symptoms. At baseline, the patient has exertional dyspnea, but denies worsening of these symptoms. He currently denies chest pain, tightness, SOB, presyncopal or syncopal episode. Patient denies acute swelling of the lower extremities. Past Medical/Surgical History HTN HLD STEMI CABG x4 COPD T2DM Family History Diabetes mellitus Social History Smoking Status: Never Smoker History of Alcohol Use: No Review of Systems Constitutional: No fever, No chills, No sweats, No weakness, No fatigue Respiratory: + dyspnea on exertion, No cough, No sputum, No wheezing, No shortness of breath, No dyspnea at rest Cardiac: No chest pain, No orthopnea, No PND, No edema, No palpitations Abdomen: No pain, No nausea, No vomiting, No diarrhea Neurologic: No weakness Allergies Coded Allergies: No Known Allergies (Verified , 02/28/17) Medications Current Inpatient Medications Medications (Trade) Dose Ordered Sig/Margi Route Start Time Stop Time Status Last Admin Dose Admin Nitroglycerin (Nitrostat Tab) 0.4 mg UD PRN SL 02/28/17 19:45 03/30/17 19:44 Heparin Sodium (Porcine) (Heparin Sq 5000 Unit/0.5ml) 5,000 unit Q8 SQ 02/28/17 22:00 03/30/17 21:59 03/01/17 06:23 5,000 UNIT Ondansetron HCl (Zofran Inj) 4 mg Q6H PRN IV 02/28/17 20:00 03/30/17 19:59 Tramadol HCl (Ultram Tab) 50 mg Q6 PRN PO 02/28/17 20:15 03/30/17 20:14 03/01/17 06:23 50 MG Morphine Sulfate (MoRPHine SULFATE INJ) 2 mg Q4 PRN IV 02/28/17 20:15 03/14/17 20:14 Aspirin (Ecotrin Tab) 81 mg DAILY PO 03/01/17 09:00 03/31/17 08:59 03/01/17 08:25 81 MG Atorvastatin Calcium (Lipitor Tab) 40 mg DAILY PO 03/01/17 09:00 03/31/17 08:59 03/01/17 08:26 40 MG Clopidogrel Bisulfate (plAVix TAB) 75 mg DAILY PO 03/01/17 09:00 03/31/17 08:59 03/01/17 08:26 75 MG Furosemide (Lasix Tab) 40 mg DAILY PRN PO 02/28/17 20:15 03/30/17 20:14 Isosorbide Mononitrate (Imdur Ext Rel Tab) 60 mg BID PO 02/28/17 21:00 03/30/17 20:59 03/01/17 08:26 60 MG Lisinopril (Zestril Tab) 5 mg QPM PO 02/28/17 21:00 03/30/17 20:59 02/28/17 22:41 5 MG Metoprolol Succinate (Toprol Xl Tab) 100 mg BID PO 02/28/17 21:00 03/30/17 20:59 03/01/17 08:26 100 MG Albuterol/ Ipratropium (Duoneb) 3 ml Q4R PRN INH 02/28/17 20:15 03/30/17 20:14 Lidocaine (Lidoderm Patch 5%) 1 patch QAM TD 02/28/17 20:15 03/30/17 20:14 02/28/17 22:40 1 PATCH Miscellaneous (Remove Lidoderm Patch) 1 ea DAILY@21 N/A 03/01/17 21:00 03/31/17 20:59 Insulin Glargine (Lantus Solostar Pen) 7 units Q12 SC 02/28/17 21:00 03/30/17 20:59 03/01/17 08:29 7 UNITS Insulin Aspart (novoLOG ASPART) SLIDING SCALE If C... ACHS SC 02/28/17 21:00 03/30/17 20:59 02/28/17 22:48 3 UNITS Glucose (Glucose 40% Gel) 15-30 GRAMS 15 GRAMS... UD PRN PO 02/28/17 20:30 03/30/17 20:29 Glucose (Glucose Chew Tab) 4-8 Tablets 4 Tabl... UD PRN PO 02/28/17 20:30 03/30/17 20:29 Dextrose (Dextrose 50% 50ML Syringe) 25-50ML OF 50% DW IV FOR... UD PRN IV 02/28/17 20:30 03/30/17 20:29 Glucagon (Glucagon Inj) 1 mg UD PRN SQ 02/28/17 20:30 03/30/17 20:29 Miscellaneous (Iv Fluids Completed) 1 ea PRN PRN N/A 02/28/17 20:45 02/28/18 20:44 Acetaminophen (Tylenol Tab) 1,000 mg Q8 PO 02/28/17 22:00 03/30/17 21:59 02/28/17 22:42 1,000 MG Gabapentin (Neurontin Cap) 300 mg HS PO 03/01/17 21:00 03/31/17 20:59 Physical Exam Vital Signs Past 12 Hours Date Time Temp Pulse Resp B/P (MAP) Pulse Ox O2 Delivery O2 Flow Rate FiO2 03/01/17 08:16 36.6 58 16 129/71 (90) 98 03/01/17 08:00 Room Air 03/01/17 04:00 94 Room Air 03/01/17 03:50 36.4 54 16 127/71 (89) 97 Room Air 03/01/17 00:00 96 Room Air 02/28/17 23:35 36.1 65 18 147/56 (86) 96 Room Air Head: normocephalic, atraumatic Lungs: Respiratory effort: no dyspnea, good air movement Auscultation: breath sounds normal, CTA except as noted, no wheezing, no rales/crackles, no rhonchi Cardiovascular: Heart Auscultation: RRR, normal S1, normal S2, no murmurs, no rubs Extremities: no cyanosis, no clubbing, no ulcers, edema (mild left lower ext edema ) Data Laboratory Results: Last 24 Hours Test 02/28/17 16:41 02/28/17 16:51 02/28/17 22:38 02/28/17 23:01 White Blood Count 7.82 K/uL Red Blood Count 4.81 M/uL Hemoglobin 13.1 g/dL Hematocrit 40.0 % Mean Corpuscular Volume 83.2 fL Mean Corpuscular Hemoglobin 27.2 pg Mean Corpuscular Hemoglobin Concent 32.8 g/dl Platelet Count 149 K/uL Mean Platelet Volume 12.7 fL Neutrophils (%) (Auto) 84.2 % Lymphocytes (%) (Auto) 9.7 % Monocytes (%) (Auto) 3.1 % Eosinophils (%) (Auto) 0.1 % Basophils (%) (Auto) 0.3 % Neutrophils # (Auto) 6.59 K/uL Lymphocytes # (Auto) 0.76 K/uL Monocytes # (Auto) 0.24 K/uL Eosinophils # (Auto) 0.01 K/uL Basophils # (Auto) 0.02 K/uL RDW Standard Deviation 49.6 fL RDW Coefficient of Variation 16.6 % Immature Granulocyte % (Auto) 2.6 % Immature Granulocyte # (Auto) 0.20 K/uL Platelet Estimate NORMAL Red Blood Cell Morphology Unremarkable Prothrombin Time 10.0 SECONDS Prothromb Time International Ratio 0.9 Activated Partial Thromboplast Time 23.5 SECONDS Partial Thromboplastin Ratio 0.9 Sodium Level 138 mmol/L Potassium Level 4.4 mmol/L Chloride Level 103 mmol/L Carbon Dioxide Level 24 mmol/L Anion Gap 11.0 mmol/L Blood Urea Nitrogen 18 mg/dl Creatinine 0.95 mg/dl Est Creatinine Clear Calc Drug Dose 72.4 ml/min Estimated GFR () 93.6 Estimated GFR (Non- 80.8 BUN/Creatinine Ratio 18.8 Random Glucose 308 mg/dl Calcium Level 8.7 mg/dl Beta-Hydroxybutyric Acid 3.51 mg/dL Bedside Troponin I 0.170 ng/ml Bedside Glucose 219 mg/dl Total Creatine Kinase 50 U/L Creatine Kinase MB 2.0 ng/ml Creatine Kinase MB Ratio 4.0 Troponin I 0.232 ng/ml Test 03/01/17 05:00 03/01/17 05:14 03/01/17 06:50 Urine Color YELLOW Urine Appearance CLEAR Urine pH 6.0 Urine Specific [place] > 1.045 Urine Protein NEG Urine Glucose (UA) 3+ Urine Ketones TRACE Urine Occult Blood NEG Urine Nitrite NEG Urine Bilirubin NEG Urine Urobilinogen NEG Urine Leukocyte Esterase NEG White Blood Count 6.26 K/uL Red Blood Count 4.16 M/uL Hemoglobin 11.0 g/dL Hematocrit 34.4 % Mean Corpuscular Volume 82.7 fL Mean Corpuscular Hemoglobin 26.4 pg Mean Corpuscular Hemoglobin Concent 32.0 g/dl RDW Standard Deviation 49.5 fL RDW Coefficient of Variation 16.4 % Platelet Count 137 K/uL Mean Platelet Volume 12.2 fL Sodium Level 140 mmol/L Potassium Level 3.7 mmol/L Chloride Level 108 mmol/L Carbon Dioxide Level 31 mmol/L Anion Gap 1.0 mmol/L Blood Urea Nitrogen 19 mg/dl Creatinine 0.78 mg/dl Est Creatinine Clear Calc Drug Dose 88.2 ml/min Estimated GFR () 106.0 Estimated GFR (Non- 91.5 BUN/Creatinine Ratio 24.1 Random Glucose 156 mg/dl Estimated Average Glucose 217 mg/dl Hemoglobin A1c 9.2 % Hemoglobin A1c Pathologist Comment Calcium Level 8.2 mg/dl Total Creatine Kinase 36 U/L Creatine Kinase MB 1.6 ng/ml Creatine Kinase MB Ratio 4.4 Troponin I 0.259 ng/ml Triglycerides Level 224 mg/dl Cholesterol Level 187 mg/dl HDL Cholesterol 44 mg/dl LDL Cholesterol, Calculated 98 mg/dl VLDL Cholesterol, Calculated 45 mg/dl Cholesterol/HDL Ratio 4.3 Bedside Glucose 132 mg/dl Imaging: EKG: Telemetry reviewed: Assessment & Plan [address] [facility] with left back and leg pain. Since admission, patient has been seen to have elevation in troponin and new T wave inversions in inferior and lateral leads. Patient does endorse a recent anginal episode two days ago-- experienced as a dull, substernal chest tightness relieved by sublingual nitroglycerin. He reports about one episode of anginal symptoms per month; no recent increase in frequency or change in character of his symptoms. Elevation of troponin and EKG changes most likely represent worsening of patient 's CAD and less likely due to acute coronary syndrome. If no new changes seen on ECHO, we will not pursue any further cardio workup in the inpatient and will follow up closely in the outpatient setting. Discussed case extensively with attending physician, Dr. Leung. Patient follows up with Dr. Leung in the outpatient setting. Angina/CAD -Patient denies increase in frequency or change character of his symptoms -Continue antianginal medications -STAT EKG if patient has recurrent symptoms Elevation of troponin -ECHO today -Patient seen to have elevated troponin in the past -Likely 2/2 to worsening CAD rather than ACS. -Continue ASA, Plavix, Atorvastatin, Lisinopril, Toprol DR. LEUNG ADDENDUM: Patient seen and examined with Dr. Terrazas Agree with assessment and plan as outlined above. Briefly, Dr. Avinar a 71-year-old man well known to me from prior visits and the outpatient setting with a history severe coronary artery disease status post 4 vessel CABG and more recently complex [employer] PCI of hist RCA and circumflex over the last 12 months who was readmitted in the setting of back and hip pain thought musculoskeletal in nature and was found to have incidental elevated troponin and EKG changes. Patient had 1 episode chest discomfort the day prior to admission. Not different from prior episodes he has had occurring every month or so. Episode was brief, relieved with sublingual nitroglycerin. Since that time has been chest pain-free. Denies any significant heart failure symptoms. Continues take dual antiplatelet therapy. Have reviewed patient's EKGs, lab work, prior cardiac catheterization. Patient does have notable new T-wave inversions across precordial leads similar to what he had prior to his most recent LAD into circumflex intervention in May. My suspicion that patient having active acute coronary syndrome is relatively low. However, possible may have some progression/restenoses of his known coronary artery disease. Repeat echo planned for later today. Patient largely asymptomatic while maintaining a relatively active lifestyle and assuming echo largely unchanged would recommend continued medical management. If additional symptoms as an outpatient could consider repeat ischemic evaluation. Discussed these recommendations with patient and he is in agreement. Continue current Toprol-XL and DAPT. Can increase current long-acting nitrate to 120 milligrams BID.
--- NOTE | 2017-03-01 12:55 | DIAGNOSTIC IMAGING REPORT ---
LUMBAR SPINE W/O CONTRAST HISTORY: Pain. Neuropathy. possible spinal stenosis, nerve root compression TECHNIQUE: Multiplanar multisequence MRI of the lumbar spine was performed without the use of contrast. COMPARISON: None. FINDINGS: For the purpose of the report the L5-S1 disc space will be located on axial image 2730. Normal signal characteristics of the vertebral bodies. Moderate degenerative disc change L4-L5. Posterior bulging discs based on sagittal images at this level. L1-L2: No significant central canal or neural foraminal narrowing. L2-L3: No significant central canal or neural foraminal narrowing. L3-L4: Slight lateral disc bulges with minimal narrowing of the neuroforamina bilaterally. L4-L5: Broad-based disc herniation. Considerable narrowing right and to lesser extent left neural foramina. Moderate multifactorial spinal stenosis. Moderate hypertrophic change posterior facets and ligamentum flavum. L5-S1: No significant central canal or neural foraminal narrowing. IMPRESSION: 1. Broad-based disc herniation L4-L5 with moderate multifactorial narrowing of the spinal canal. 2. Considerable narrowing of the right and to a lesser extent left neural foramina at this level. 3. Minimal lateral disc bulge bilaterally at L3-L4. The above report was generated using voice recognition software. It may contain grammatical, syntax or spelling errors. Electronically signed by: Junito Shirley M.D. 03/01/2017 12:54 PM Dictated Date/Time: 03/01/2017 12:43 PM
--- NOTE | 2017-03-01 19:14 | Progress Note ---
Medicine Progress Note Date & Time of Visit: Mar 01, 2017 at 19:07. Subjective patient seen resting in bed not in distress still having significant back pain, shooting pain to the left leg denies incontinence, paresthesias no chest pain, dyspnea, palpitations no other symptoms Objective Last 8 Hrs Date Time Temp Pulse Resp B/P (MAP) Pulse Ox O2 Delivery O2 Flow Rate FiO2 03/01/17 15:57 36.4 61 18 130/70 (90) 97 Room Air 03/01/17 12:33 36.7 62 18 131/71 (91) 98 03/01/17 12:00 Room Air Physical Exam: General- oriented x 3, not in distress, speaks in sentences with no effort Head- atraumatic Eyes- PERRL, EOMI, anicteric ENT- oropharynx clear Neck- supple, no JVD, no adenopathy, no thyromegaly Lungs- clear breath sounds bilaterally, no rales/wheezes Heart- regular rhythm; no murmur, normal rate Abdomen- normal bowel sounds, soft, nontender Extremities- no pretibial edema, no calf tenderness Back - mild tenderness lumbar spine region Neuro- alert, oriented x 3; PERRL, EOMI; no facial palsy; no dysarthria; motor 5 /5 bilaterally; sensation 100% on all extremities Skin- warm & dry Laboratory Results: Last 24 Hours Test 02/28/17 22:38 02/28/17 23:01 03/01/17 05:00 03/01/17 05:14 Bedside Glucose 219 mg/dl Total Creatine Kinase 50 U/L 36 U/L Creatine Kinase MB 2.0 ng/ml 1.6 ng/ml Creatine Kinase MB Ratio 4.0 4.4 Troponin I 0.232 ng/ml 0.259 ng/ml Urine Color YELLOW Urine Appearance CLEAR Urine pH 6.0 Urine Specific [place] > 1.045 Urine Protein NEG Urine Glucose (UA) 3+ Urine Ketones TRACE Urine Occult Blood NEG Urine Nitrite NEG Urine Bilirubin NEG Urine Urobilinogen NEG Urine Leukocyte Esterase NEG White Blood Count 6.26 K/uL Red Blood Count 4.16 M/uL Hemoglobin 11.0 g/dL Hematocrit 34.4 % Mean Corpuscular Volume 82.7 fL Mean Corpuscular Hemoglobin 26.4 pg Mean Corpuscular Hemoglobin Concent 32.0 g/dl RDW Standard Deviation 49.5 fL RDW Coefficient of Variation 16.4 % Platelet Count 137 K/uL Mean Platelet Volume 12.2 fL Sodium Level 140 mmol/L Potassium Level 3.7 mmol/L Chloride Level 108 mmol/L Carbon Dioxide Level 31 mmol/L Anion Gap 1.0 mmol/L Blood Urea Nitrogen 19 mg/dl Creatinine 0.78 mg/dl Est Creatinine Clear Calc Drug Dose 88.2 ml/min Estimated GFR () 106.0 Estimated GFR (Non- 91.5 BUN/Creatinine Ratio 24.1 Random Glucose 156 mg/dl Estimated Average Glucose 217 mg/dl Hemoglobin A1c 9.2 % Hemoglobin A1c Pathologist Comment Calcium Level 8.2 mg/dl Triglycerides Level 224 mg/dl Cholesterol Level 187 mg/dl HDL Cholesterol 44 mg/dl LDL Cholesterol, Calculated 98 mg/dl VLDL Cholesterol, Calculated 45 mg/dl Cholesterol/HDL Ratio 4.3 Test 03/01/17 06:50 03/01/17 13:30 03/01/17 17:29 Bedside Glucose 132 mg/dl 136 mg/dl 142 mg/dl Assessment & Plan INTRACTABLE BACK PAIN - secondary to Lumbar Disc Herniation, Spinal Stenosis - Lumbar Spine MRI: 1. Broad-based disc herniation L4-L5 with moderate multifactorial narrowing of the spinal canal. 2. Considerable narrowing of the right and to a lesser extent left neural foramina at this level. 3. Minimal lateral disc bulge bilaterally at L3-L4. - Pain Management and Ortho Spine consulted - continue Gabapentin, Tramadol, Morphine PRN avoid NSAIDs due to extensive cardiac history - PT/OT ELEVATED TROPONIN HISTORY OF CAD/CABG - (+) mil troponin elevated [place] 0.2 new t wave inversions in v1-v6 - echo: pending - Cardiology consulted input appreciated -continue lipitor -continue ASA -continue metoprolol -continue lisinopril -continue plavix -continue lasix prn COPD - not in exacerbation -duonebs prn DM II -hold metformin -NovoLog sliding scale per protocol -Lantus 7u BID DVT PROPHYLAXIS -heparin SQ DISPOSITION pending PT/OT in progress lives with at home Current Inpatient Medications: Current Inpatient Medications Medications (Trade) Dose Ordered Sig/Margi Route Start Time Stop Time Status Last Admin Dose Admin Nitroglycerin (Nitrostat Tab) 0.4 mg UD PRN SL 02/28/17 19:45 03/30/17 19:44 Heparin Sodium (Porcine) (Heparin Sq 5000 Unit/0.5ml) 5,000 unit Q8 SQ 02/28/17 22:00 03/30/17 21:59 03/01/17 06:23 5,000 UNIT Ondansetron HCl (Zofran Inj) 4 mg Q6H PRN IV 02/28/17 20:00 03/30/17 19:59 Tramadol HCl (Ultram Tab) 50 mg Q6 PRN PO 02/28/17 20:15 03/30/17 20:14 03/01/17 17:26 50 MG Morphine Sulfate (MoRPHine SULFATE INJ) 2 mg Q4 PRN IV 02/28/17 20:15 03/14/17 20:14 Aspirin (Ecotrin Tab) 81 mg DAILY PO 03/01/17 09:00 03/31/17 08:59 03/01/17 08:25 81 MG Atorvastatin Calcium (Lipitor Tab) 40 mg DAILY PO 03/01/17 09:00 03/31/17 08:59 03/01/17 08:26 40 MG Clopidogrel Bisulfate (plAVix TAB) 75 mg DAILY PO 03/01/17 09:00 03/31/17 08:59 03/01/17 08:26 75 MG Furosemide (Lasix Tab) 40 mg DAILY PRN PO 02/28/17 20:15 03/30/17 20:14 Isosorbide Mononitrate (Imdur Ext Rel Tab) 60 mg BID PO 02/28/17 21:00 03/30/17 20:59 03/01/17 08:26 60 MG Lisinopril (Zestril Tab) 5 mg QPM PO 02/28/17 21:00 03/30/17 20:59 02/28/17 22:41 5 MG Metoprolol Succinate (Toprol Xl Tab) 100 mg BID PO 02/28/17 21:00 03/30/17 20:59 03/01/17 08:26 100 MG Albuterol/ Ipratropium (Duoneb) 3 ml Q4R PRN INH 02/28/17 20:15 03/30/17 20:14 Lidocaine (Lidoderm Patch 5%) 1 patch QAM TD 02/28/17 20:15 03/30/17 20:14 03/01/17 09:00 1 PATCH Miscellaneous (Remove Lidoderm Patch) 1 ea DAILY@21 N/A 03/01/17 21:00 03/31/17 20:59 Insulin Glargine (Lantus Solostar Pen) 7 units Q12 SC 02/28/17 21:00 03/30/17 20:59 03/01/17 08:29 7 UNITS Insulin Aspart (novoLOG ASPART) SLIDING SCALE If C... ACHS SC 02/28/17 21:00 03/30/17 20:59 02/28/17 22:48 3 UNITS Glucose (Glucose 40% Gel) 15-30 GRAMS 15 GRAMS... UD PRN PO 02/28/17 20:30 03/30/17 20:29 Glucose (Glucose Chew Tab) 4-8 Tablets 4 Tabl... UD PRN PO 02/28/17 20:30 03/30/17 20:29 Dextrose (Dextrose 50% 50ML Syringe) 25-50ML OF 50% DW IV FOR... UD PRN IV 02/28/17 20:30 03/30/17 20:29 Glucagon (Glucagon Inj) 1 mg UD PRN SQ 02/28/17 20:30 03/30/17 20:29 Miscellaneous (Iv Fluids Completed) 1 ea PRN PRN N/A 02/28/17 20:45 02/28/18 20:44 Acetaminophen (Tylenol Tab) 1,000 mg Q8 PO 02/28/17 22:00 03/30/17 21:59 03/01/17 13:51 1,000 MG Gabapentin (Neurontin Cap) 300 mg HS PO 03/01/17 21:00 03/31/17 20:59 Magnesium Hydroxide (Milk Of Magnesia Susp) 30 ml Q6H PRN PO 03/01/17 12:30 03/31/17 12:29
[2017-03-01] MEDS: MAGNESIUM HYDROXIDE SUSP 30 ML UDC PO PRN (20:34)
[2017-03-01] MEDS: LISINOPRIL 5 MG TAB PO SCH (20:37)
[2017-03-01] MEDS ORDERED: GABAPENTIN 300 MG CAP PO SCH (21:00)
[2017-03-02] VITALS (8 sets, daily range): BP systolic 127–172; BP diastolic 74–103; PULSE 49–62; TEMP 36.4–36.9; O2SAT 90–97
[2017-03-02] MEDS: ACETAMINOPHEN 500 MG TAB PO SCH ×3 (06:07→21:40)
[2017-03-02] MEDS: HEPARIN SOD 5000 UNIT/0.5 ML CARP SQ SCH ×3 (06:12→21:41)
[2017-03-02] MEDS: CLOPIDOGREL BISULFATE 75 MG TAB PO SCH (08:26)
[2017-03-02] MEDS: ASPIRIN 81 MG ECTAB PO SCH (08:26)
[2017-03-02] MEDS: ATORVASTATIN 20 MG TAB PO SCH (08:26)
[2017-03-02] MEDS: LIDODERM (LIDOCAINE) PATCH 5% TD SCH (08:27)
[2017-03-02] MEDS: ISOSORBIDE MONONITRATE 60 MG TABCR PO SCH ×2 (08:28→20:11)
[2017-03-02] MEDS: METOPROLOL SUCC 50MG EXT REL TAB PO SCH ×2 (08:28→20:11)
[2017-03-02] MEDS: INSULIN GLARGINE SOLOSTAR 100 UNITS/ML 3 ML PEN SC SCH ×2 (08:30→21:42)
[2017-03-02] MEDS: INSULIN ASPART 100 UNITS/ML 3 ML PEN SC SCH ×4 (08:30→21:00)
[2017-03-02] MEDS: MAGNESIUM HYDROXIDE SUSP 30 ML UDC PO PRN (08:32)
[2017-03-02] MEDS ORDERED: HYDROmorphone INJ 0.5 MG/0.5 ML SYR IV ONE (08:41)
[2017-03-02] MEDS ORDERED: HYDROmorphone INJ 0.5 MG/0.5 ML SYR IV PRN (08:45)
[2017-03-02] MEDS ORDERED: GABAPENTIN 300 MG CAP PO SCH (09:00)
--- NOTE | 2017-03-02 12:21 | Pain Management Consultation ---
Pain Management Consultation Date of Consultation Mar 02, 2017. Reason for Consultation Left lumbar radiculopathy History Mr. Andres is a 71 year old white male that has been seen in consultation at the [facility] for left sided lumbar radiculopathy. Patient describes approximately 70% focal pain along the left buttock and 30% radicular pain along the left leg in an L5 distribution. Pain is aggravated with standing and walking. Symptoms are mildly relieved with laying supine. He reports significant limitation into his ambulatory activities due to the pain. Pain is currently rated 3/10. He is currently on Gabapentin 600mg QHS, Lidocaine patch, Tramadol, and Dilaudid IV. He states that his pain is mildly improving. He does see [facility] and has received an injection 1.5 months ago which has provided minimal pain relief. He is scheduled for another injection on 03/05/17. He denies any leg weakness, foot drop, saddle anesthesia, bowel/bladder incontinence, or falls. Case discussed with Dr. Orellana Past Medical: COPD, CAD, HTN, hyperlipidemia, CHF, hx of PR, DM Past Surgical: CABG Family History Diabetes mellitus Social / Work History Smokeless Tobacco Use: No Alcohol Use: socially Marital Status: Housing Status: lives with family Occupation: employed (at [employer]) Allergies Coded Allergies: No Known Allergies (Verified , 02/28/17) Medications Current Inpatient Medications Medications (Trade) Dose Ordered Sig/Margi Route Start Time Stop Time Status Last Admin Dose Admin Nitroglycerin (Nitrostat Tab) 0.4 mg UD PRN SL 02/28/17 19:45 03/30/17 19:44 Heparin Sodium (Porcine) (Heparin Sq 5000 Unit/0.5ml) 5,000 unit Q8 SQ 02/28/17 22:00 03/30/17 21:59 03/02/17 06:12 5,000 UNIT Ondansetron HCl (Zofran Inj) 4 mg Q6H PRN IV 02/28/17 20:00 03/30/17 19:59 Tramadol HCl (Ultram Tab) 50 mg Q6 PRN PO 02/28/17 20:15 03/30/17 20:14 03/01/17 23:44 50 MG Morphine Sulfate (MoRPHine SULFATE INJ) 2 mg Q4 PRN IV 02/28/17 20:15 03/14/17 20:14 03/01/17 20:35 2 MG Aspirin (Ecotrin Tab) 81 mg DAILY PO 03/01/17 09:00 03/31/17 08:59 03/02/17 08:26 81 MG Atorvastatin Calcium (Lipitor Tab) 40 mg DAILY PO 03/01/17 09:00 03/31/17 08:59 03/02/17 08:26 40 MG Clopidogrel Bisulfate (plAVix TAB) 75 mg DAILY PO 03/01/17 09:00 03/31/17 08:59 03/02/17 08:26 75 MG Furosemide (Lasix Tab) 40 mg DAILY PRN PO 02/28/17 20:15 03/30/17 20:14 Isosorbide Mononitrate (Imdur Ext Rel Tab) 60 mg BID PO 02/28/17 21:00 03/30/17 20:59 03/02/17 08:28 60 MG Lisinopril (Zestril Tab) 5 mg QPM PO 02/28/17 21:00 03/30/17 20:59 03/01/17 20:37 5 MG Metoprolol Succinate (Toprol Xl Tab) 100 mg BID PO 02/28/17 21:00 03/30/17 20:59 03/02/17 08:28 100 MG Albuterol/ Ipratropium (Duoneb) 3 ml Q4R PRN INH 02/28/17 20:15 03/30/17 20:14 Lidocaine (Lidoderm Patch 5%) 1 patch QAM TD 02/28/17 20:15 03/30/17 20:14 03/02/17 08:27 1 PATCH Miscellaneous (Remove Lidoderm Patch) 1 ea DAILY@21 N/A 03/01/17 21:00 03/31/17 20:59 03/01/17 20:35 1 EA Insulin Glargine (Lantus Solostar Pen) 7 units Q12 SC 02/28/17 21:00 03/30/17 20:59 03/02/17 08:30 7 UNITS Insulin Aspart (novoLOG ASPART) SLIDING SCALE If C... ACHS SC 02/28/17 21:00 03/30/17 20:59 02/28/17 22:48 3 UNITS Glucose (Glucose 40% Gel) 15-30 GRAMS 15 GRAMS... UD PRN PO 02/28/17 20:30 03/30/17 20:29 Glucose (Glucose Chew Tab) 4-8 Tablets 4 Tabl... UD PRN PO 02/28/17 20:30 03/30/17 20:29 Dextrose (Dextrose 50% 50ML Syringe) 25-50ML OF 50% DW IV FOR... UD PRN IV 02/28/17 20:30 03/30/17 20:29 Glucagon (Glucagon Inj) 1 mg UD PRN SQ 02/28/17 20:30 03/30/17 20:29 Miscellaneous (Iv Fluids Completed) 1 ea PRN PRN N/A 02/28/17 20:45 02/28/18 20:44 Acetaminophen (Tylenol Tab) 1,000 mg Q8 PO 02/28/17 22:00 03/30/17 21:59 03/02/17 06:07 1,000 MG Magnesium Hydroxide (Milk Of Magnesia Susp) 30 ml Q6H PRN PO 03/01/17 12:30 03/31/17 12:29 03/02/17 08:32 30 ML Hydromorphone HCl (Dilaudid Inj) 0.5 mg Q6H PRN IV 03/02/17 08:45 03/16/17 08:44 Gabapentin (Neurontin Cap) 300 mg BID PO 03/02/17 09:00 03/31/17 20:59 Review of Systems Denies any constitutional, cardiac, pulmonary, neurological, GI, , extremity, endocrine, neuro, ENT, dermatological, or musculoskeletal complaints other than stated in HPI Physical Exam Height & Weight: Height 5 feet, 9.00 inches. Weight 73.100 (Kilograms) 161 (Pounds) Last Vital Signs Documentation Date Time Temp Pulse Resp B/P (MAP) Pulse Ox O2 Delivery O2 Flow Rate FiO2 03/02/17 08:00 Room Air 03/02/17 07:16 36.5 51 16 127/74 (91) 92 Exam: GENERAL: Mr. Andres is a 71 y/o male that appears his stated age. Speech and cognition is intact. Mood and affect is appropriate. Sitting quietly in the hospital bed in no acute distress. Does appear moderately uncomfortable with positional changes and with standing. HEAD: Normocephalic; atraumatic. EYES: Pupils are round, equal, and reactive to light; EOM intact. ENT: No external ear discharge or lesions. No rhinorrhea or epistaxis. No mucosal lesions. CHEST: Regular chest respiration and excursion. EXTREMITIES: 5/5 strength of the bilateral lower extremities. There is a positive SLR on the left, negative on the right. Sensation is equal and intact bilaterally. BACK: Full ROM. No midline, SI joint, or facet joint tenderness. There is tenderness along the left buttock. No paravertebral, quadratus lumborum spasm. There is spasm of the left buttock. NEURO: CN II-XII grossly intact with no focal deficits noted. Patellar Reflex L 0 R +1 Achilles Reflex L +1 R +2 SKIN: No lesions, erythema, or rashes noted. Laboratory Laboratory Results (Last CBC): 03/01/17 05:14 Imaging MRI Findings LUMBAR SPINE W/O CONTRAST HISTORY: Pain. Neuropathy. possible spinal stenosis, nerve root compression TECHNIQUE: Multiplanar multisequence MRI of the lumbar spine was performed without the use of contrast. COMPARISON: None. FINDINGS: For the purpose of the report the L5-S1 disc space will be located on axial image 2730. Normal signal characteristics of the vertebral bodies. Moderate degenerative disc change L4-L5. Posterior bulging discs based on sagittal images at this level. L1-L2: No significant central canal or neural foraminal narrowing. L2-L3: No significant central canal or neural foraminal narrowing. L3-L4: Slight lateral disc bulges with minimal narrowing of the neuroforamina bilaterally. L4-L5: Broad-based disc herniation. Considerable narrowing right and to lesser extent left neural foramina. Moderate multifactorial spinal stenosis. Moderate hypertrophic change posterior facets and ligamentum flavum. L5-S1: No significant central canal or neural foraminal narrowing. IMPRESSION: 1. Broad-based disc herniation L4-L5 with moderate multifactorial narrowing of the spinal canal. 2. Considerable narrowing of the right and to a lesser extent left neural foramina at this level. 3. Minimal lateral disc bulge bilaterally at L3-L4. The above report was generated using voice recognition software. It may contain grammatical, syntax or spelling errors. Electronically signed by: Junito Shirley M.D. 03/01/2017 12:54 PM Dictated Date/Time: 03/01/2017 12:43 PM Assessment 1. L4-L5 disc herniation 2. Lumbar radiculopathy 3. Coronary artery disease 4. COPD Recommendations 1. Increase gabapentin to 600 mg twice daily 2. Continue lidocaine patches 3. Patient does have an injection scheduled for Sunday in the [facility]. Advised the patient that he should keep the scheduled appointment. 4. Continue tramadol for pain relief
[2017-03-02] MEDS ORDERED: KETOROLAC TROMETHAMINE 15 MG/ML VIAL IM PRN (12:30)
[2017-03-02] MEDS ORDERED: KETOROLAC TROMETHAMINE 15 MG/ML VIAL IM ONE (12:30)
[2017-03-02] MEDS ORDERED: MAGNESIUM HYDROXIDE SUSP 30 ML UDC PO PRN (12:30)
--- NOTE | 2017-03-02 12:32 | Progress Note ---
Medicine Progress Note Date & Time of Visit: Mar 02, 2017 at 12:21. Subjective seen resting in bed, not in distress reports that back pain radiating to the left leg is about the same denies paresthesias, numbness of the lower extremities, no incontinence worse with ambulation denies chest pain, dyspnea, palpitations no other symptoms Objective Last 8 Hrs Date Time Temp Pulse Resp B/P (MAP) Pulse Ox O2 Delivery O2 Flow Rate FiO2 03/02/17 08:00 Room Air 03/02/17 07:16 36.5 51 16 127/74 (91) 92 Room Air Physical Exam: General- oriented x 3, not in distress, speaks in sentences with no effort Eyes- EOMI, anicteric Neck- supple, no JVD, no adenopathy Lungs- clear breath sounds bilaterally, no rales/wheezing Heart- regular rhythm; no murmur, normal rate Abdomen- normal bowel sounds, soft, nontender Extremities- no pretibial edema, no calf tenderness Back - mild tenderness lumbar spine region Neuro- alert, oriented x 3; PERRL, EOMI; no facial palsy; no dysarthria; motor 5 /5 bilaterally; sensation 100% on all extremities Skin- warm & dry Laboratory Results: Last 24 Hours Test 03/01/17 13:30 03/01/17 17:29 03/01/17 20:22 03/02/17 06:50 Bedside Glucose 136 mg/dl 142 mg/dl 158 mg/dl 108 mg/dl Assessment & Plan INTRACTABLE BACK PAIN - secondary to Lumbar Disc Herniation, Spinal Stenosis - Lumbar Spine MRI: 1. Broad-based disc herniation L4-L5 with moderate multifactorial narrowing of the spinal canal. 2. Considerable narrowing of the right and to a lesser extent left neural foramina at this level. 3. Minimal lateral disc bulge bilaterally at L3-L4. - Pain Management and Ortho Spine consulted awaiting recommendations - pain about the same - add Dilaudid IV PRN increase Gabapentin 300mg BID Toradol ok with Cardiology after discussing with Dr. [place], will order Toradol 15mg q6h PRN Tramadol, Morphine PRN - PT/OT ELEVATED TROPONIN HISTORY OF CAD/CABG - (+) mil troponin elevated frederick 0.2 new t wave inversions in v1-v6 - echo: pending - Cardiology consulted input appreciated -continue lipitor -continue ASA -continue metoprolol -continue lisinopril -continue plavix -continue lasix prn COPD - not in exacerbation -duonebs prn DM II -hold metformin -NovoLog sliding scale per protocol -Lantus 7u BID DVT PROPHYLAXIS -heparin SQ DISPOSITION pending PT/OT in progress lives with at home Current Inpatient Medications: Current Inpatient Medications Medications (Trade) Dose Ordered Sig/Margi Route Start Time Stop Time Status Last Admin Dose Admin Nitroglycerin (Nitrostat Tab) 0.4 mg UD PRN SL 02/28/17 19:45 03/30/17 19:44 Heparin Sodium (Porcine) (Heparin Sq 5000 Unit/0.5ml) 5,000 unit Q8 SQ 02/28/17 22:00 03/30/17 21:59 03/02/17 06:12 5,000 UNIT Ondansetron HCl (Zofran Inj) 4 mg Q6H PRN IV 02/28/17 20:00 03/30/17 19:59 Tramadol HCl (Ultram Tab) 50 mg Q6 PRN PO 02/28/17 20:15 03/30/17 20:14 03/01/17 23:44 50 MG Morphine Sulfate (MoRPHine SULFATE INJ) 2 mg Q4 PRN IV 02/28/17 20:15 03/14/17 20:14 03/01/17 20:35 2 MG Aspirin (Ecotrin Tab) 81 mg DAILY PO 03/01/17 09:00 03/31/17 08:59 03/02/17 08:26 81 MG Atorvastatin Calcium (Lipitor Tab) 40 mg DAILY PO 03/01/17 09:00 03/31/17 08:59 03/02/17 08:26 40 MG Clopidogrel Bisulfate (plAVix TAB) 75 mg DAILY PO 03/01/17 09:00 03/31/17 08:59 03/02/17 08:26 75 MG Furosemide (Lasix Tab) 40 mg DAILY PRN PO 02/28/17 20:15 03/30/17 20:14 Isosorbide Mononitrate (Imdur Ext Rel Tab) 60 mg BID PO 02/28/17 21:00 03/30/17 20:59 03/02/17 08:28 60 MG Lisinopril (Zestril Tab) 5 mg QPM PO 02/28/17 21:00 03/30/17 20:59 03/01/17 20:37 5 MG Metoprolol Succinate (Toprol Xl Tab) 100 mg BID PO 02/28/17 21:00 03/30/17 20:59 03/02/17 08:28 100 MG Albuterol/ Ipratropium (Duoneb) 3 ml Q4R PRN INH 02/28/17 20:15 03/30/17 20:14 Lidocaine (Lidoderm Patch 5%) 1 patch QAM TD 02/28/17 20:15 03/30/17 20:14 03/02/17 08:27 1 PATCH Miscellaneous (Remove Lidoderm Patch) 1 ea DAILY@21 N/A 03/01/17 21:00 03/31/17 20:59 03/01/17 20:35 1 EA Insulin Glargine (Lantus Solostar Pen) 7 units Q12 SC 02/28/17 21:00 03/30/17 20:59 03/02/17 08:30 7 UNITS Insulin Aspart (novoLOG ASPART) SLIDING SCALE If C... ACHS SC 02/28/17 21:00 03/30/17 20:59 02/28/17 22:48 3 UNITS Glucose (Glucose 40% Gel) 15-30 GRAMS 15 GRAMS... UD PRN PO 02/28/17 20:30 03/30/17 20:29 Glucose (Glucose Chew Tab) 4-8 Tablets 4 Tabl... UD PRN PO 02/28/17 20:30 03/30/17 20:29 Dextrose (Dextrose 50% 50ML Syringe) 25-50ML OF 50% DW IV FOR... UD PRN IV 02/28/17 20:30 03/30/17 20:29 Glucagon (Glucagon Inj) 1 mg UD PRN SQ 02/28/17 20:30 03/30/17 20:29 Miscellaneous (Iv Fluids Completed) 1 ea PRN PRN N/A 02/28/17 20:45 02/28/18 20:44 Acetaminophen (Tylenol Tab) 1,000 mg Q8 PO 02/28/17 22:00 03/30/17 21:59 03/02/17 06:07 1,000 MG Magnesium Hydroxide (Milk Of Magnesia Susp) 30 ml Q6H PRN PO 03/01/17 12:30 03/31/17 12:29 03/02/17 08:32 30 ML Hydromorphone HCl (Dilaudid Inj) 0.5 mg Q6H PRN IV 03/02/17 08:45 03/16/17 08:44 Gabapentin (Neurontin Cap) 300 mg BID PO 03/02/17 09:00 03/31/17 20:59 03/02/17 12:08 300 MG
[2017-03-02] MEDS ORDERED: DOCUSATE SODIUM/SENNA 50/8.6MG TAB PO ONE (13:00)
[2017-03-02] MEDS ORDERED: DOCUSATE SODIUM/SENNA 50/8.6MG TAB PO SCH (13:00)
--- NOTE | 2017-03-02 13:41 | ECHOCARDIOGRAM REPORT ---
*NOTICE TO RECEIVING REPUBLICAN AGENCY This information is strictly Confidential and protected under [place] law. [place] law prohibits you from making any further disclosure of this information unless further disclosure is expressly permitted by the written consent of the person to whom it pertains or is authorized by law. A general authorization for the release of medical or other information is not sufficient for this purpose. Hospital accepts no responsibility if the information is made available to any other person, INCLUDING THE PATIENT. Interpretation Summary * Name: GRZEGORZ HATCH Study Date: 03/01/2017 02:15 PM BP: 131/71 mmHg * Patient Location: C.2T\S\S239\S\2 HR: 62 * : 1945 (M/d/y) Gender: Male Height: 69 in * Age: 71 yrs Ethnicity: NA Weight: 159 lb * Ordering Physician: Adalberto Terrazas * Referring Physician: MARCIE * Performed By: Lexus Boateng RDCS * * Reason For Study: Chest pain, PMH of CAD, CABG, Elevated Troponins * BSA: 1.9 m2 * -- Conclusions -- * 1. Normal LV size, mild concentric LVH. * 2. Mild to moderate LV dysfunction. LVEF 40-45%. Severe inferolateral hypokinesis, mid to apical moderate lateral hypokinesis. Severe apical hypokinesis. * 3. Normal RV size, mild RV dsyfunction. * 4. Mild mitral regurgitation. * 5. Aortic valve sclerosis without stenosis. * 6. Mild to moderate pulmonary hypertension. Est 45-50 mmHg. * 7. Grade II diastolic dysfunction. * 8. Compared with prior study on 09/29/2016: No significant changes. Procedure Details * A complete two-dimensional transthoracic echocardiogram was performed (2D, M-mode, Doppler and color flow Doppler). Left Ventricle * The left ventricle is grossly normal size. * There is mild concentric left ventricular hypertrophy. * Ejection Fraction = 40-45%. * Septal motion is consistent with post-operative state. * Severe inferolateral hypokinesis, mid to apical moderate lateral hypokinesis. Severe apical hypokinesis. Right Ventricle * The right ventricle is grossly normal size. * The right ventricular systolic function is qualitatively normal. Atria * The left atrium is mildly dilated. * Right atrial size is normal. * There is no evidence of atrial septal defect, but resolution does not allow assessment for a patent foramen ovale. Mitral Valve * The mitral valve is grossly normal. * There is no mitral valve stenosis. * There is mild mitral regurgitation. Tricuspid Valve * The tricuspid valve is not well visualized, but is grossly normal. * There is no tricuspid stenosis. * There is mild tricuspid regurgitation. * Right ventricular systolic pressure is elevated at 40-50mmHg. Aortic Valve * Aortic valve sclerosis mild, without significant aortic valvular stenosis. * No hemodynamically significant valvular aortic stenosis. * There is no significant aortic regurgitation. Pulmonic Valve * The pulmonary valve is inadequately visualized, but the Doppler data is adequate for interpretation. * Pulmonic stenosis is absent. * Trace pulmonic valvular regurgitation. Great Vessels * The aortic root and proximal ascending aorta are normal sized. * IVC < 2.1, <50% change with respiration. Left Ventricular Diastolic Function * Diastolic dysfunction, Grade II, consistent with elevated left atrial pressure. MMode 2D Measurements and Calculations IVSd 1.1 cm IVSs 1.3 cm LVIDd 4.7 cm LVIDs 3.8 cm LVPWd 1.1 cm LVPWs 2.0 cm IVS/LVPW 10 FS 20.1 % EDV(Teich) 104.6 ml ESV(Teich) 61.7 ml EF(Teich) 41.1 % EDV(cubed) 106.8 ml ESV(cubed) 54.6 ml EF(cubed) 48.9 % % IVS thick 25.1 % % LVPW thick 88.2 % LV mass(C)d 184.2 grams LV mass(C)dI 98.3 grams/m\S\2 LV mass(C)s 260.5 grams LV mass(C)sI 139.0 grams/m\S\2 SV(Teich) 43.0 ml SI(Teich) 22.9 ml/m\S\2 SV(cubed) 52.2 ml SI(cubed) 27.9 ml/m\S\2 EPSS 2.4 cm Ao root diam 2.6 cm Ao root area 5.5 cm\S\2 ACS 1.1 cm LA dimension 4.2 cm LA/Ao 1.6 LVAd ap4 38.1 cm\S\2 LVLd ap4 9.5 cm EDV(MOD-sp4) 138.0 ml EDV(sp4-el) 129.6 ml LVAs ap4 26.9 cm\S\2 LVLs ap4 8.7 cm ESV(MOD-sp4) 77.9 ml ESV(sp4-el) 71.1 ml EF(MOD-sp4) 43.5 % EF(sp4-el) 45.2 % LVAd ap2 38.7 cm\S\2 LVLd ap2 8.9 cm EDV(MOD-sp2) 147.7 ml EDV(sp2-el) 142.9 ml LVAs ap2 26.9 cm\S\2 LVLs ap2 7.8 cm ESV(MOD-sp2) 86.1 ml ESV(sp2-el) 78.3 ml EF(MOD-sp2) 41.7 % EF(sp2-el) 45.2 % LVLd %diff -7.26 % EDV(MOD-bp) 149.5 ml LVLs %diff -10.66 % ESV(MOD-bp) 86.4 ml EF(MOD-bp) 42.2 % SV(MOD-sp4) 60.1 ml SI(MOD-sp4) 32.1 ml/m\S\2 SV(MOD-sp2) 61.6 ml SI(MOD-sp2) 32.9 ml/m\S\2 SV(MOD-bp) 63.1 ml SI(MOD-bp) 33.7 ml/m\S\2 SV(sp4-el) 58.5 ml SI(sp4-el) 31.2 ml/m\S\2 SV(sp2-el) 64.6 ml SI(sp2-el) 34.5 ml/m\S\2 Doppler Measurements and Calculations MV E max awilda 92.2 cm/sec MV A max awilda 28.1 cm/sec MV E/A 3.3 MV dec time 0.20 sec Ao V2 max 169.7 cm/sec Ao max PG 11.5 mmHg Ao max PG (full) 10.7 mmHg LV V1 max PG 0.85 mmHg LV V1 max 46.1 cm/sec PA V2 max 119.3 cm/sec PA max PG 5.7 mmHg TR max awilda 301.9 cm/sec
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
--- NOTE | 2017-03-02 14:24 | CONSULTATION REPORT ---
DATE OF CONSULTATION: 03/02/2017 DATE OF CONSULTATION: 03/02/2017 CHIEF COMPLAINT: Lower back pain, pain going off to the left buttock and proximal hamstring region. 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 Typically was in the back going into the thigh rated about 8-10 on the pain scale. He typically is followed through pain management in [place] where he has had injections in the past which have helped and have improved his symptoms significantly. He was admitted to the hospital with a combination of this pain as well as chest pain after taking nitroglycerin tablet at home. He also reported some shortness of breath and had some concerns about possible PE versus DVT. He has been admitted to medicine service and has undergone an MRI of the lumbar spine and we have been consulted to address his back and radicular complaints. Per the patient, he states all the pain is in the lower portion of his back going to the left buttock and left proximal thigh. He did have some symptoms on the right hand side several months ago but that has subsided. It is making it difficult for him to stand and walk. He was scheduled to have an injection this coming Sunday in [place]. He denies any elvin weakness in legs. He denies any numbing sensations below the knee. He denies any recent falls or injuries. PAST MEDICAL HISTORY: Significant for cellulitis, congestive heart failure, COPD, type 2 diabetes, hypertension, hyperlipidemia, ST elevated myocardial infarction. PAST SURGICAL HISTORY: Significant for quadruple bypass in 1997. SOCIAL HISTORY: The patient is a former smoker. He uses alcohol socially. Denies any illicit drug use. ALLERGIES: He has no listed drug allergies. HOME MEDICATIONS: Include enteric coated aspirin, Lipitor, Plavix, Imdur, Zestril, Glucophage, Toprol. He uses Lasix as needed as well as Combivent, Nitrostat, and MiraLax. REVIEW OF SYSTEMS: Recorded in the patient's medical history. PHYSICAL EXAMINATION: GENERAL: The patient is alert and oriented. He is able to shift and sit on the side of his bed during our discussion. He is nontender along the lumbar spine itself. He has full range of motion of the hips and knees. MUSCULOSKELETAL: Lower extremity motor exam reveals no focal atrophy. Strength is 5/5 detailed muscle testing without exception. He has no nerve retention signs. ABDOMEN: Soft, nontender. EXTREMITIES: Calves are supple and nontender. Skin is intact. No lesions or masses. RADIOGRAPHIC IMAGES: MRI of the lumbar spine performed recently reveals loss of lumbar lordosis. There is significant disc degeneration at the L4-L5 segment with severe facet arthropathy. There is a large right foraminal disc herniation occluding the majority of the right neural foramen. He has lateral recess and foraminal stenosis both on the left and right hand side secondary to the facet arthropathy. ASSESSMENT: Acute episode of lower back pain with some left radicular complaints. PLAN: At this point, the patient is having quite a bit in the way of pain across the lower portion of his back and left side. The large disc herniation is actually on the right hand side, contralateral side from where the majority of his pain is at this point. We discussed options for treatment at this point he is not looking for any acute surgical intervention. He would rather try to treat this conservatively if possible. We suggested a course of IV steroids over the next 24 hours, keeping close eye on his blood sugars. He needs to work with occupational therapy and physical therapy. Our hope is over the next 24-48 hours with pain medications his pain will be better controlled and he can be discharged and follow up as an outpatient with his pain management group. If his symptoms are not significantly improved through pain management we would be happy to consult with him as an outpatient and determine whether or not surgical intervention is warranted. In this case, it most likely consists of L4-L5 decompression, complete discectomy with an instrumented fusion. I discussed this briefly with the patient and he really is not interested in surgical intervention at this point and will try the conservative measures mentioned above.
[2017-03-02] MEDS ORDERED: METHYLPREDNISOLONE IV 40 MG in SYRINGE 0 ML IV ONE (18:00)
[2017-03-02] MEDS ORDERED: PHARMACY GLYCEMIC MGMT CONSULT PRN (18:20)
[2017-03-02] MEDS ORDERED: NURSING VERBAL MED ORDER ONE (19:30)
[2017-03-02] MEDS ORDERED: KETOROLAC TROMETHAMINE 15 MG/ML VIAL IV. PRN (19:45)
[2017-03-02] MEDS: GABAPENTIN 600 MG TAB PO SCH (20:11)
[2017-03-02] MEDS: LISINOPRIL 5 MG TAB PO SCH (20:12)
--- NOTE | 2017-03-02 20:32 | Pharmacy Progress Note ---
Glycemic Control Intl Consult Date of Service Mar 02, 2017. Scope Glycemic Pharmacist consulted by Dr Wall on 03/02/17 for glycemic control and to write orders per [facility] inpatient glycemic control protocol Objective Weight (Kilograms): 73.100 Accuchecks BSG (last 24hrs): Test 03/02/17 06:50 03/02/17 16:22 Bedside Glucose 108 mg/dl (70-99) 174 mg/dl (70-99) HbA1c Test 03/01/17 05:14 Hemoglobin A1c 9.2 % (4.5-5.6) H Recent Pertinent Medications Outpatient Anti-diabetic Regimen: * metformin 1 g PO BIDM The patient is currently receiving: * Basal insulin: Lantus 7 units every 12 hours * Correctional Insulin: Novolog Correction per scale ACHS Goal Range: Low 110 mg/dL - High 150 mg/dL Correction Factor: 60 mg/dL/unit * Prandial insulin: Per carb ratio of 1 unit per 20 grams CHO consumed Risk Factors for Insulin Resistance: * Steroids: newly added tonight Assessment & Plan ASSESSMENT: * 71 yo T2D male admitted with back pain, controlled with wt based/stress of 1 basal bolus regimen since admission * Pt has been refusing Novolog since admission and has been controlled on 14 units of basal insulin only * Solumedrol 40 mg IV daily initiated tonight which prompted glycemic consult * Spoke with nurse, 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 on board * Tighten Novolog to wt based/stress 2.5 and utilize Lantus scale based on BSG as I suspect pt will be sensitive to steroids (A1c >9%) PLAN FOR INPATIENT GLYCEMIC CONTROL: * Hold outpatient oral diabetes medications * Basal insulin with LANTUS 7-18 units SQ BID depending on BSG * 7 u if BSG <140 * 12 u if BSG 140-180 * 18 u if BSG >180 * Correctional Insulin with NOVOLOG per scale ACHS or Q6hrs while NPO * Goal Range: Low 110 mg/dL - High 150 mg/dL * Correction Factor: 30 mg/dL/unit * Nutritional / Prandial insulin per carb ratio of 1 unit per 8 grams CHO consumed LOOKING AHEAD TO DISCHARGE: * Recommend initiating daily Lantus on discharge if patient agreeable * Dose TBD * Please note that the plan above was derived based on current level of insulin resistance and hospital stress. These recommendations are appropriate for inpatient admission only. Plan of care upon discharge will need to be reassessed to avoid potential outpatient hypo/hyperglycemia. Thank you.
[2017-03-03] VITALS (9 sets, daily range): BP systolic 144–180; BP diastolic 69–99; PULSE 53–92; TEMP 36.3–37; O2SAT 92–96
[2017-03-03] MEDS ORDERED: LISINOPRIL 5 MG TAB PO ONE (04:07)
[2017-03-03] MEDS: HEPARIN SOD 5000 UNIT/0.5 ML CARP SQ SCH ×3 (04:44→21:05)
[2017-03-03] MEDS: ACETAMINOPHEN 500 MG TAB PO SCH ×3 (04:48→21:06)
[2017-03-03] MEDS: ASPIRIN 81 MG ECTAB PO SCH (08:10)
[2017-03-03] MEDS: ATORVASTATIN 20 MG TAB PO SCH (08:10)
[2017-03-03] MEDS: METHYLPREDNISOLONE IV 40 MG in SYRINGE 0 ML IV SCH (08:10)
[2017-03-03] MEDS: GABAPENTIN 600 MG TAB PO SCH ×2 (08:11→21:01)
[2017-03-03] MEDS: DOCUSATE SODIUM/SENNA 50/8.6MG TAB PO SCH (08:11)
[2017-03-03] MEDS: CLOPIDOGREL BISULFATE 75 MG TAB PO SCH (08:11)
[2017-03-03] MEDS: METOPROLOL SUCC 50MG EXT REL TAB PO SCH ×2 (08:12→21:01)
[2017-03-03] MEDS: ISOSORBIDE MONONITRATE 60 MG TABCR PO SCH ×2 (08:12→21:01)
[2017-03-03] MEDS: INSULIN GLARGINE SOLOSTAR 100 UNITS/ML 3 ML PEN SC SCH ×2 (08:14→21:05)
[2017-03-03] MEDS: LIDODERM (LIDOCAINE) PATCH 5% TD SCH (08:15)
[2017-03-03] MEDS: INSULIN ASPART 100 UNITS/ML 3 ML PEN SC SCH ×4 (08:21→21:04)
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
[2017-03-03] MEDS: HYDROCODONE/ACETAMOPHEN 5/325MG TAB PO PRN ×2 (11:26→17:51)
[2017-03-03] MEDS: MAGNESIUM HYDROXIDE SUSP 30 ML UDC PO PRN (13:28)
--- NOTE | 2017-03-03 14:07 | Pharmacy Progress Note ---
Pharmacy Glycemic Short Note 2 Date of Service Mar 03, 2017. Test 03/02/17 16:22 03/02/17 20:44 03/03/17 06:36 03/03/17 11:16 Bedside Glucose 174 mg/dl (70-99) 130 mg/dl (70-99) 161 mg/dl (70-99) 86 mg/dl (70-99) OUTPATIENT ANTIDIABETIC REGIMEN: * Metformin 1g PO BID ASSESSMENT: * Blood sugars at goal, 86mg/dl prior to lunch, will adjust Lantus dose down to prevent hypoglycemia * Pt continues to be on IV Solu-medrol 40mg daily PLAN FOR INPATIENT GLYCEMIC CONTROL: * Hold outpatient oral diabetes medications * Basal insulin * Lantus SQ BID * 0 units for BSG < 110mg/dl * 6 units for BSG 110-180mg/dl * 12 units for BSG > 180mg/dl * Bolus insulin * NovoLog per scale ACHS or Q6hrs while NPO * Goal Range: Low 110 mg/dL - High 140 mg/dL * Correction Factor: 30 mg/dL/unit * Nutritional / Prandial insulin per carb ratio of 1 unit per 10 grams CHO consumed PLAN FOR DISCHARGE: * A1c 9.2% - recommend starting Lantus upon discharge
--- NOTE | 2017-03-03 18:14 | Progress Note ---
Medicine Progress Note Date & Time of Visit: Mar 03, 2017 at 18:10. Subjective seen ambulating in the room with the walker states his back and left hip/leg pain is improving can ambulate better denies chest pain no other symptoms Objective Last 8 Hrs Date Time Temp Pulse Resp B/P (MAP) Pulse Ox O2 Delivery O2 Flow Rate FiO2 03/03/17 16:17 36.9 66 20 152/87 (108) 96 Room Air 03/03/17 16:00 Room Air 03/03/17 12:00 96 Room Air 03/03/17 11:33 36.8 71 18 144/69 (94) 96 Room Air Physical Exam: General- oriented x 3, not in distress, speaks in sentences with no effort Eyes- anicteric Neck- no JVD, no adenopathy Lungs- clear breath sounds bilaterally, no rales/wheezes Heart- regular rhythm; no murmur, normal rate Abdomen- normal bowel sounds, soft, nontender Extremities- no pretibial edema, no calf tenderness Back - very mild tenderness lumbar spine region Neuro- alert, oriented x 3;no gross focal deficits Skin- warm & dry Laboratory Results: Last 24 Hours Test 03/02/17 20:44 03/03/17 06:36 03/03/17 11:16 03/03/17 16:29 Bedside Glucose 130 mg/dl 161 mg/dl 86 mg/dl 272 mg/dl Assessment & Plan INTRACTABLE BACK PAIN - secondary to Lumbar Disc Herniation, Spinal Stenosis - Lumbar Spine MRI: 1. Broad-based disc herniation L4-L5 with moderate multifactorial narrowing of the spinal canal. 2. Considerable narrowing of the right and to a lesser extent left neural foramina at this level. 3. Minimal lateral disc bulge bilaterally at L3-L4. - Pain Management and Ortho Spine consulted - pain improving - Solumedrol daily Gabapentin 600mg BID PRN [place] PRN Dilaudid, Toradol - ff up with Pain Mgt in [place] on Sunday for planned Steroid Injection ff up with Ortho Spine for discussion re: possible surgical intervention ELEVATED TROPONIN HISTORY OF CAD/CABG - (+) mil troponin elevated [place] 0.2 new t wave inversions in v1-v6 - echo: * 1. Normal LV size, mild concentric LVH. * 2. Mild to moderate LV dysfunction. LVEF 40-45%. Severe inferolateral hypokinesis, mid to apical moderate lateral hypokinesis. Severe apical hypokinesis. * 3. Normal RV size, mild RV dsyfunction. * 4. Mild mitral regurgitation. * 5. Aortic valve sclerosis without stenosis. * 6. Mild to moderate pulmonary hypertension. Est 45-50 mmHg. * 7. Grade II diastolic dysfunction. * 8. Compared with prior study on 09/29/2016: No significant changes. - Cardiology consulted input appreciated, if BP increases increase Nitro -continue lipitor -continue ASA -continue metoprolol -continue lisinopril -continue plavix -continue lasix prn COPD - not in exacerbation -duonebs prn DM II -hold metformin -NovoLog sliding scale per protocol Lantus DVT PROPHYLAXIS -heparin SQ DISPOSITION possible d/c tomorrow PT/OT in progress lives with at home Current Inpatient Medications: Current Inpatient Medications Medications (Trade) Dose Ordered Sig/Margi Route Start Time Stop Time Status Last Admin Dose Admin Nitroglycerin (Nitrostat Tab) 0.4 mg UD PRN SL 02/28/17 19:45 03/30/17 19:44 Heparin Sodium (Porcine) (Heparin Sq 5000 Unit/0.5ml) 5,000 unit Q8 SQ 02/28/17 22:00 03/30/17 21:59 03/03/17 13:14 5,000 UNIT Ondansetron HCl (Zofran Inj) 4 mg Q6H PRN IV 02/28/17 20:00 03/30/17 19:59 Tramadol HCl (Ultram Tab) 50 mg Q6 PRN PO 02/28/17 20:15 03/30/17 20:14 03/01/17 23:44 50 MG Morphine Sulfate (MoRPHine SULFATE INJ) 2 mg Q4 PRN IV 02/28/17 20:15 03/14/17 20:14 03/01/17 20:35 2 MG Aspirin (Ecotrin Tab) 81 mg DAILY PO 03/01/17 09:00 03/31/17 08:59 03/03/17 08:10 81 MG Atorvastatin Calcium (Lipitor Tab) 40 mg DAILY PO 03/01/17 09:00 03/31/17 08:59 03/03/17 08:10 40 MG Clopidogrel Bisulfate (plAVix TAB) 75 mg DAILY PO 03/01/17 09:00 03/31/17 08:59 03/03/17 08:11 75 MG Furosemide (Lasix Tab) 40 mg DAILY PRN PO 02/28/17 20:15 03/30/17 20:14 Isosorbide Mononitrate (Imdur Ext Rel Tab) 60 mg BID PO 02/28/17 21:00 03/30/17 20:59 03/03/17 08:12 60 MG Metoprolol Succinate (Toprol Xl Tab) 100 mg BID PO 02/28/17 21:00 03/30/17 20:59 03/03/17 08:12 100 MG Albuterol/ Ipratropium (Duoneb) 3 ml Q4R PRN INH 02/28/17 20:15 03/30/17 20:14 03/02/17 20:08 3 ML Lidocaine (Lidoderm Patch 5%) 1 patch QAM TD 02/28/17 20:15 03/30/17 20:14 03/03/17 08:15 1 PATCH Miscellaneous (Remove Lidoderm Patch) 1 ea DAILY@21 N/A 03/01/17 21:00 03/31/17 20:59 03/02/17 21:00 1 EA Insulin Aspart (novoLOG ASPART) SLIDING SCALE If C... ACHS SC 02/28/17 21:00 03/30/17 20:59 03/03/17 17:49 13 UNITS Glucose (Glucose 40% Gel) 15-30 GRAMS 15 GRAMS... UD PRN PO 02/28/17 20:30 03/30/17 20:29 Glucose (Glucose Chew Tab) 4-8 Tablets 4 Tabl... UD PRN PO 02/28/17 20:30 03/30/17 20:29 Dextrose (Dextrose 50% 50ML Syringe) 25-50ML OF 50% DW IV FOR... UD PRN IV 02/28/17 20:30 03/30/17 20:29 Glucagon (Glucagon Inj) 1 mg UD PRN SQ 02/28/17 20:30 03/30/17 20:29 Miscellaneous (Iv Fluids Completed) 1 ea PRN PRN N/A 02/28/17 20:45 02/28/18 20:44 Acetaminophen (Tylenol Tab) 1,000 mg Q8 PO 02/28/17 22:00 03/30/17 21:59 03/03/17 04:48 1,000 MG Magnesium Hydroxide (Milk Of Magnesia Susp) 30 ml Q6H PRN PO 03/01/17 12:30 03/31/17 12:29 03/03/17 13:28 30 ML Hydromorphone HCl (Dilaudid Inj) 0.5 mg Q6H PRN IV 03/02/17 08:45 03/16/17 08:44 03/03/17 09:18 0.5 MG Senna/Docusate Sodium (Senokot S Tab) 1 tab QAM PO 03/03/17 09:00 04/02/17 08:59 03/03/17 08:11 1 TAB Gabapentin (Neurontin Tab) 600 mg BID PO 03/02/17 21:00 03/31/17 20:59 03/03/17 08:11 600 MG Methylprednisolone Sodium Succinate 40 mg/Syringe 0.64 ml @ 1.5 mls/min DAILY@0900 IV 03/03/17 09:00 04/02/17 08:59 03/03/17 08:10 1.5 MLS/MIN Miscellaneous Information (Consult Glycemic Management Pharmacy) 1 ea UD PRN N/A 03/02/17 18:20 04/01/17 18:19 Insulin Glargine (Lantus Solostar Pen) SEE PROTOCOL Q12 SC 03/02/17 21:00 04/01/17 20:59 03/03/17 08:14 12 UNITS Ketorolac Tromethamine (Toradol Inj) 15 mg Q6H PRN IV. 03/02/17 19:45 03/07/17 19:44 Lisinopril (Zestril Tab) 10 mg DAILY PO 03/04/17 09:00 03/30/17 20:59 Acetaminophen/ Hydrocodone Bitart ([place] 5/325 Tab) 1 tab Q4H PRN PO 03/03/17 09:45 03/17/17 09:44 03/03/17 17:51 1 TAB
[2017-03-04 02:56] VITALS: BP 158/83; PULSE 65; TEMP 36.7; O2SAT 91
[2017-03-04] MEDS: HYDROCODONE/ACETAMOPHEN 5/325MG TAB PO PRN ×2 (03:02→13:49)
[2017-03-04] MEDS: HEPARIN SOD 5000 UNIT/0.5 ML CARP SQ SCH ×2 (06:34→14:00)
[2017-03-04] MEDS: ACETAMINOPHEN 500 MG TAB PO SCH ×2 (06:34→14:00)
[2017-03-04 07:48] VITALS: BP 150/83; PULSE 60; TEMP 36.6; O2SAT 95
[2017-03-04] MEDS ORDERED: LISINOPRIL 5 MG TAB PO SCH (09:00)
[2017-03-04] MEDS ORDERED: INSULIN GLARGINE SOLOSTAR 100 UNITS/ML 3 ML PEN SC SCH (09:00)
[2017-03-04 09:15] LABS: BASO % 0.1 %; BASO ABS # 0.01 K/uL (0-0.2); EOS % 0.4 %; HEMATOCRIT 35.2 % (42-52); IG% 0.7 %; LYMPH % 13.9 %; LYMPH ABS # 1.18 K/uL (1.2-3.4); MEAN CELL VOLUME 84.2 fL (80-100); MEAN PLATELET VOLUME 11.4 fL (7.4-10.4); MONO % 7.6 %; NEUT % 77.3 %; PLATELET COUNT 132 K/uL (130-400); RED BLOOD COUNT 4.18 M/uL (4.7-6.1); WHITE BLOOD COUNT 8.51 K/uL (4.8-10.8)
[2017-03-04 09:22] LABS: COMPLETE YES; MEAN CORPUSCULAR HGB CONC 32.1 g/dl (32-36)
[2017-03-04 09:43] LABS: BUN/CREATININE RATIO 25.2 (10-20); CALCIUM 8.5 mg/dl (8.5-10.1); CREATININE 1.03 mg/dl (0.60-1.40); MAGNESIUM 2.3 mg/dl (1.8-2.4); POTASSIUM 3.8 mmol/L (3.5-5.1)
[2017-03-04] MEDS: METHYLPREDNISOLONE IV 40 MG in SYRINGE 0 ML IV SCH (09:44)
[2017-03-04] MEDS: CLOPIDOGREL BISULFATE 75 MG TAB PO SCH (09:45)
[2017-03-04] MEDS: ASPIRIN 81 MG ECTAB PO SCH (09:45)
[2017-03-04] MEDS: GABAPENTIN 600 MG TAB PO SCH (09:45)
[2017-03-04] MEDS: LIDODERM (LIDOCAINE) PATCH 5% TD SCH (09:45)
[2017-03-04] MEDS: ATORVASTATIN 20 MG TAB PO SCH (09:45)
[2017-03-04] MEDS: METOPROLOL SUCC 50MG EXT REL TAB PO SCH (09:46)
[2017-03-04] MEDS: DOCUSATE SODIUM/SENNA 50/8.6MG TAB PO SCH (09:46)
[2017-03-04] MEDS: ISOSORBIDE MONONITRATE 60 MG TABCR PO SCH (09:47)
[2017-03-04] MEDS: INSULIN ASPART 100 UNITS/ML 3 ML PEN SC SCH ×2 (09:53→13:47)
[2017-03-04 11:46] VITALS: BP 170/87; PULSE 62; TEMP 36.7; O2SAT 97
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
--- NOTE | 2017-03-04 13:41 | Pharmacy Progress Note ---
Pharmacy Glycemic Short Note 2 Date of Service Mar 04, 2017. Test 03/03/17 16:29 03/03/17 20:20 03/04/17 06:50 03/04/17 08:50 Bedside Glucose 272 mg/dl (70-99) 155 mg/dl (70-99) 135 mg/dl (70-99) Random Glucose 260 mg/dl (70-99) Test 03/04/17 11:18 Bedside Glucose 157 mg/dl (70-99) OUTPATIENT ANTIDIABETIC REGIMEN: * Metformin 1g PO BID ASSESSMENT: * Blood sugars at goal, will move Lantus to once daily in anticipation of continuing when patient is discharged and to decrease injections * Pt continues to be on IV Solu-medrol 40mg daily PLAN FOR INPATIENT GLYCEMIC CONTROL: * Hold outpatient oral diabetes medications * Basal insulin * Lantus SQ daily * 0 units for BSG < 90mg/dl * 18 units for BSG 90-180mg/dl * 24 units for BSG > 180mg/dl * Bolus insulin * NovoLog per scale ACHS or Q6hrs while NPO * Goal Range: Low 110 mg/dL - High 140 mg/dL * Correction Factor: 30 mg/dL/unit * Nutritional / Prandial insulin per carb ratio of 1 unit per 10 grams CHO consumed PLAN FOR DISCHARGE: * A1c 9.2% - recommend continuing Lantus upon discharge
--- NOTE | 2017-03-04 14:36 | Progress Note ---
Medicine Progress Note Date & Time of Visit: Mar 04, 2017 at 14:29. Subjective patient seen resting in bed, comfortable states he feels improved has minimal pain now, can ambulate better denies weakness, incontinence had episode of few seconds non sustained V tach, asymptomatic denies chest pain, dyspnea, palpitations, dizziness denies other symptoms states he is ready and would like to be discharged today Objective Last 8 Hrs Date Time Temp Pulse Resp B/P (MAP) Pulse Ox O2 Delivery O2 Flow Rate FiO2 03/04/17 12:00 Room Air 03/04/17 11:46 36.7 62 18 170/87 (114) 97 Room Air 03/04/17 08:00 Room Air 03/04/17 07:48 36.6 60 18 150/83 (105) 95 Room Air Physical Exam: General- oriented x 3, not in distress, speaks in sentences with no effort Eyes- anicteric Neck- no JVD Lungs- clear breath sounds bilaterally, no rales/wheezes Heart- normal rate, regular rhythm; no murmurs Abdomen- normal bowel sounds, soft, nontender Extremities- no pretibial edema, no calf tenderness Back - very mild tenderness lumbar spine region Neuro- alert, oriented x 3;no gross focal deficits Skin- warm & dry Laboratory Results: Last 24 Hours Test 03/03/17 16:29 03/03/17 20:20 03/04/17 06:50 03/04/17 08:50 Bedside Glucose 272 mg/dl 155 mg/dl 135 mg/dl White Blood Count 8.51 K/uL Red Blood Count 4.18 M/uL Hemoglobin 11.3 g/dL Hematocrit 35.2 % Mean Corpuscular Volume 84.2 fL Mean Corpuscular Hemoglobin 27.0 pg Mean Corpuscular Hemoglobin Concent 32.1 g/dl Platelet Count 132 K/uL Mean Platelet Volume 11.4 fL Neutrophils (%) (Auto) 77.3 % Lymphocytes (%) (Auto) 13.9 % Monocytes (%) (Auto) 7.6 % Eosinophils (%) (Auto) 0.4 % Basophils (%) (Auto) 0.1 % Neutrophils # (Auto) 6.58 K/uL Lymphocytes # (Auto) 1.18 K/uL Monocytes # (Auto) 0.65 K/uL Eosinophils # (Auto) 0.03 K/uL Basophils # (Auto) 0.01 K/uL RDW Standard Deviation 50.8 fL RDW Coefficient of Variation 16.5 % Immature Granulocyte % (Auto) 0.7 % Immature Granulocyte # (Auto) 0.06 K/uL Sodium Level 142 mmol/L Potassium Level 3.8 mmol/L Chloride Level 105 mmol/L Carbon Dioxide Level 30 mmol/L Anion Gap 7.0 mmol/L Blood Urea Nitrogen 26 mg/dl Creatinine 1.03 mg/dl Est Creatinine Clear Calc Drug Dose 66.8 ml/min Estimated GFR () 84.9 Estimated GFR (Non- 73.3 BUN/Creatinine Ratio 25.2 Random Glucose 260 mg/dl Calcium Level 8.5 mg/dl Magnesium Level 2.3 mg/dl Test 03/04/17 11:18 Bedside Glucose 157 mg/dl Assessment & Plan INTRACTABLE BACK PAIN - secondary to Lumbar Disc Herniation, Spinal Stenosis - Lumbar Spine MRI: 1. Broad-based disc herniation L4-L5 with moderate multifactorial narrowing of the spinal canal. 2. Considerable narrowing of the right and to a lesser extent left neural foramina at this level. 3. Minimal lateral disc bulge bilaterally at L3-L4. - Pain Management and Ortho Spine consulted - Solumedrol daily Gabapentin 600mg BID PRN [place] PRN Dilaudid, Toradol - pain improved significantly - ff up with Pain Mgt in [place] on Sunday for planned Steroid Injection ff up with Ortho Spine for discussion re: possible surgical intervention ELEVATED TROPONIN HISTORY OF CAD/CABG - (+) mil troponin elevated [place] 0.2 new t wave inversions in v1-v6 - echo: * 1. Normal LV size, mild concentric LVH. * 2. Mild to moderate LV dysfunction. LVEF 40-45%. Severe inferolateral hypokinesis, mid to apical moderate lateral hypokinesis. Severe apical hypokinesis. * 3. Normal RV size, mild RV dsyfunction. * 4. Mild mitral regurgitation. * 5. Aortic valve sclerosis without stenosis. * 6. Mild to moderate pulmonary hypertension. Est 45-50 mmHg. * 7. Grade II diastolic dysfunction. * 8. Compared with prior study on 09/29/2016: No significant changes. - Cardiology consulted- Dr. Toledo - recommend to increase Lisinopril to 20mg po daily continue other meds: ASA, metoprolol, plavix, lasix prn COPD - not in exacerbation -duonebs prn DM II - resume usual regimen advised to check BSGs closely DVT PROPHYLAXIS -heparin SQ given DISPOSITION d/c home ff up with Pain Mgt tomorrow ff up with PCP in 1 week Current Inpatient Medications: Current Inpatient Medications Medications (Trade) Dose Ordered Sig/Margi Route Start Time Stop Time Status Last Admin Dose Admin Nitroglycerin (Nitrostat Tab) 0.4 mg UD PRN SL 02/28/17 19:45 03/30/17 19:44 Heparin Sodium (Porcine) (Heparin Sq 5000 Unit/0.5ml) 5,000 unit Q8 SQ 02/28/17 22:00 03/30/17 21:59 03/04/17 06:34 5,000 UNIT Ondansetron HCl (Zofran Inj) 4 mg Q6H PRN IV 02/28/17 20:00 03/30/17 19:59 Tramadol HCl (Ultram Tab) 50 mg Q6 PRN PO 02/28/17 20:15 03/30/17 20:14 03/01/17 23:44 50 MG Morphine Sulfate (MoRPHine SULFATE INJ) 2 mg Q4 PRN IV 02/28/17 20:15 03/14/17 20:14 03/01/17 20:35 2 MG Aspirin (Ecotrin Tab) 81 mg DAILY PO 03/01/17 09:00 03/31/17 08:59 03/04/17 09:45 81 MG Atorvastatin Calcium (Lipitor Tab) 40 mg DAILY PO 03/01/17 09:00 03/31/17 08:59 03/04/17 09:45 40 MG Clopidogrel Bisulfate (plAVix TAB) 75 mg DAILY PO 03/01/17 09:00 03/31/17 08:59 03/04/17 09:45 75 MG Furosemide (Lasix Tab) 40 mg DAILY PRN PO 02/28/17 20:15 03/30/17 20:14 Isosorbide Mononitrate (Imdur Ext Rel Tab) 60 mg BID PO 02/28/17 21:00 03/30/17 20:59 03/04/17 09:47 60 MG Metoprolol Succinate (Toprol Xl Tab) 100 mg BID PO 02/28/17 21:00 03/30/17 20:59 03/04/17 09:46 100 MG Albuterol/ Ipratropium (Duoneb) 3 ml Q4R PRN INH 02/28/17 20:15 03/30/17 20:14 03/02/17 20:08 3 ML Lidocaine (Lidoderm Patch 5%) 1 patch QAM TD 02/28/17 20:15 03/30/17 20:14 03/04/17 09:45 1 PATCH Miscellaneous (Remove Lidoderm Patch) 1 ea DAILY@21 N/A 03/01/17 21:00 03/31/17 20:59 03/03/17 21:05 1 EA Insulin Aspart (novoLOG ASPART) SLIDING SCALE If C... ACHS SC 02/28/17 21:00 03/30/17 20:59 03/04/17 13:47 9 UNITS Glucose (Glucose 40% Gel) 15-30 GRAMS 15 GRAMS... UD PRN PO 02/28/17 20:30 03/30/17 20:29 Glucose (Glucose Chew Tab) 4-8 Tablets 4 Tabl... UD PRN PO 02/28/17 20:30 03/30/17 20:29 Dextrose (Dextrose 50% 50ML Syringe) 25-50ML OF 50% DW IV FOR... UD PRN IV 02/28/17 20:30 03/30/17 20:29 Glucagon (Glucagon Inj) 1 mg UD PRN SQ 02/28/17 20:30 03/30/17 20:29 Miscellaneous (Iv Fluids Completed) 1 ea PRN PRN N/A 02/28/17 20:45 02/28/18 20:44 Acetaminophen (Tylenol Tab) 1,000 mg Q8 PO 02/28/17 22:00 03/30/17 21:59 03/04/17 06:34 1,000 MG Magnesium Hydroxide (Milk Of Magnesia Susp) 30 ml Q6H PRN PO 03/01/17 12:30 03/31/17 12:29 03/03/17 13:28 30 ML Hydromorphone HCl (Dilaudid Inj) 0.5 mg Q6H PRN IV 03/02/17 08:45 03/16/17 08:44 03/03/17 09:18 0.5 MG Senna/Docusate Sodium (Senokot S Tab) 1 tab QAM PO 03/03/17 09:00 1/1/18 08:59 03/04/17 09:46 1 TAB Gabapentin (Neurontin Tab) 600 mg BID PO 03/02/17 21:00 03/31/17 20:59 03/04/17 09:45 600 MG Methylprednisolone Sodium Succinate 40 mg/Syringe 0.64 ml @ 1.5 mls/min DAILY@0900 IV 03/03/17 09:00 04/02/17 08:59 03/04/17 09:44 1.5 MLS/MIN Miscellaneous Information (Consult Glycemic Management Pharmacy) 1 ea UD PRN N/A 03/02/17 18:20 04/01/17 18:19 Ketorolac Tromethamine (Toradol Inj) 15 mg Q6H PRN IV. 03/02/17 19:45 03/07/17 19:44 03/04/17 09:44 15 MG Lisinopril (Zestril Tab) 10 mg DAILY PO 03/04/17 09:00 03/30/17 20:59 03/04/17 09:47 10 MG Acetaminophen/ Hydrocodone Bitart ([place] 5/325 Tab) 1 tab Q4H PRN PO 03/03/17 09:45 03/17/17 09:44 03/04/17 13:49 1 TAB Insulin Glargine (Lantus Solostar Pen) SEE PROTOCOL DAILY SC 03/04/17 09:00 04/03/17 08:59 03/04/17 09:54 18 UNITS Methylprednisolone Sodium Succinate 40 mg/Syringe 0.64 ml @ 1.5 mls/min ONE IV 03/04/17 14:15 04/03/17 14:14 UNV
[2017-03-04] MEDS ORDERED: PRD10 PO (14:41)
[2017-03-04] MEDS ORDERED: HYDR-5688 PO (14:41)
[2017-03-04] MEDS ORDERED: SENN8.6T7 PO (14:41)
[2017-03-04] MEDS ORDERED: LSN20 PO (14:41)
[2017-03-04] MEDS ORDERED: NRN600 PO (14:41)
--- NOTE | 2017-03-04 14:46 | Discharge Instructions ---
Discharge Instructions Date of Service Mar 04, 2017. Admission Reason for Admission: Back Pain, Elevated Troponin Discharge Discharge Diagnosis / Problem: INTRACTABLE BACK PAIN Discharge Goals Goal(s): Diagnostic testing, Therapeutic intervention Activity Recommendations Activity Limitations: as noted below (NO HEAVY EXERTION UNTIL RE-EVALUATED BY PRIMARY CARE PHYSICIAN) Lifting Limitations: until after follow-up appointment Exercise/Sports Limitations: until after follow-up appointment Driving or Machine Use: NO DRIVING WHILE TAKING [place] . Instructions / Follow-Up Instructions / Follow-Up PLEASE REVIEW YOUR NEW MEDICATION LIST AND FOLLOW INSTRUCTIONS CAREFULLY. YOU ARE BEING STARTED ON INSULIN LANTUS AT BEDTIME. CHECK YOUR BLOOD SUGAR BEFORE ADMINISTERING LANTUS. HOLD LANTUS IF YOUR BLOOD SUGAR IS LESS THAN 110. RECORD YOUR BLOOD SUGAR AT LEAST 3X A DAY, AND SHOW THE RECORD TO YOUR PRIMARY CARE PHYSICIAN ON YOUR FOLLOW UP. YOU MAY NEED TO LOWER THE LANTUS DOSE ONCE YOU ARE OFF THE PREDNISONE. FOLLOW UP WITH YOUR PRIMARY CARE PHYSICIAN IN 3-5 DAYS. YOU WILL NEED FURTHER ADVICE REGARDING INSULIN DOSE ADJUSTMENTS. CALL PRIMARY CARE PHYSICIAN OR RETURN TO ER IMMEDIATELY IF WITH RECURRENCE OF SYMPTOMS, BLOOD SUGAR MORE THAN 300. FOLLOW UP WITH PAIN MANAGEMENT SERVICE SCHEDULED. Current Hospital Diet Patient's current hospital diet: Diabetes Type 2 Diet, AHA Diet (Heart Healthy) Discharge Diet Recommended Diet: AHA Diet (Heart Healthy), Diabetes Type 2 Diet Procedures Procedures Performed: CT chest, Lumbar Spine MRI Pending Studies Studies pending at discharge: no Laboratory Results Hemoglobin A1c Test 03/01/17 05:14 Range/Units Estimated Average Glucose 217 mg/dl Hemoglobin A1c 9.2 H 4.5-5.6 % Lipid Panel Test 03/01/17 05:14 Range/Units Triglycerides Level 224 H 0-150 mg/dl Cholesterol Level 187 0-200 mg/dl HDL Cholesterol 44 mg/dl Cholesterol/HDL Ratio 4.3 LDL Cholesterol, Calculated 98 mg/dl Medical Emergencies . Who to Call and When: Medical Emergencies: If at any time you feel your situation is an emergency, please call 911 immediately. . Non-Emergent Contact Non-Emergency issues call your: Primary Care Provider, Nurse Tech, Specialist ([facility]) Call Non-Emergent contact if: you have a fever, your pain is not controlled, your pain is worsening, you have any medication questions . . "Provider Documentation" section prepared by Akira Wall. . VTE Core Measure Inpt VTE Proph given/why not?: Unfractionated heparin SQ
[2017-03-04] MEDS ORDERED: INSDGIPEN SC (15:09)
[2017-03-04] MEDS ORDERED: METHYLPREDNISOLONE IV 40 MG in SYRINGE 0 ML IV SCH (15:15)
--- NOTE | 2017-03-04 15:17 | Discharge Summary ---
Discharge Summary Date of Service Mar 04, 2017. Discharge Summary Admission Date: Mar 02, 2017 at 08:43 Discharge Date: Mar 04, 2017 Discharge Disposition: Home Principal Diagnosis: INTRACTABLE BACK PAIN - secondary to Lumbar Disc Herniation, Spinal Stenosis Secondary Diagnoses/Problems: Please refer to hospital course below. Procedures: L-SPINE MIN 4 VIEWS ROUTINE HISTORY: Trauma eval for fx COMPARISON: None. FINDINGS: There is no fracture. No subluxation. Moderate degenerative disc change throughout. Degenerative sclerotic changes of the vertebral endplates. Atherosclerotic change abdominal and pelvic arterial vasculature. Nonobstructive bowel pattern. Mild compression deformity T11 considered old IMPRESSION: No fracture or subluxation within the lumbar spine. Degenerative change as noted. Mild compression deformity T11 considered old L VENOUS DOPP LOWER EXT UNILAT HISTORY: 71 years-old Male left leg eval for DVT acute left leg swelling with concern for deep venous thrombosis COMPARISON: None available TECHNIQUE: Multiple real-time sonogram images of the left lower extremity deep venous structures were obtained assessing grayscale appearance, color and spectral flow FINDINGS: There is normal flow, phasicity, compressibility and augmentation of the left lower extremity deep venous structures. IMPRESSION: No sonographic evidence of deep venous thrombosis. (CHEST FOR PE) ANGIO WITH CT DOSE: 337.27 mGy.cm HISTORY: 71 years-old Male acute right leg swelling with concern for pulmonary thromboembolic disease. Acute dyspnea. TECHNIQUE: Multiple CTA images of the chest were obtained after the intravenous administration of 112 ml Optiray 320. Coronal and sagittal MIPS were obtained from the axial data set and were submitted for review. A dose lowering technique was utilized adhering to the principles of ALARA. COMPARISON: Chest radiographs of same day, CTA of the chest 03/25/2008. FINDINGS: CTA: Moderate multichamber cardiac enlargement. Prior median sternotomy and CABG. Extensive reno-sparks coronary arterial calcifications also noted. There are calcifications of the aortic annulus. Moderate atherosclerosis of the thoracic aorta without aneurysm or dissection. The left vertebral artery emanates strictly from the aortic arch. Imaged proximal great vessels appear patent. There is prominent atherosclerosis of the imaged upper abdominal aorta. The distal segmental and subsegmental branches are not well seen secondary to respiratory motion. No focal filling defects identified to suggest pulmonary thromboembolic disease. CT CHEST: No dominant thyroid nodule. No pathologic adenopathy of the chest identified. There is a trace right pleural effusion. No pneumothorax. Linear subsegmental consolidative opacities of the inferior segment lingula and basal left lower lobe suggest atelectasis/scarring. No lobar airspace consolidations to suggest pneumonia. Central airways are patent. No acute abnormality of the imaged upper abdomen. Soft tissues are unremarkable. Multilevel endplate spurring of the spine. IMPRESSION: 1. Mildly limited study secondary to respiratory motion. Within the limitations of the study, there is no acute aortic pathology or evidence of pulmonary thromboembolic disease. 2. Trace right pleural effusion. No lobar airspace consolidations to suggest pneumonia. 3. Prior median sternotomy and CABG. 4. Moderate multichamber cardiac enlargement. L PELVIS/UNILATERAL HIP 2-3VIEWS HISTORY: 71 years-old Male L hip pain acute left-sided head pain and swelling without reported trauma COMPARISON: Pelvis CT 03/21/2016 TECHNIQUE: AP view the pelvis with 2 views of the left hip FINDINGS: The bones are mildly demineralized. No pelvic ring fracture. Sacrum appears intact. Degenerative changes are seen within the lower lumbar spine. Moderate osteoarthritis of the bilateral hips. The left femur appears intact without acute fracture or dislocation. Vascular calcifications are noted. There is contrast within the urinary bladder. 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 IMPRESSION: 1. Degenerative changes as above without acute fracture or dislocation. 2. Bladder diverticulum suggests sequela of chronic bladder outlet obstruction. LUMBAR SPINE W/O CONTRAST HISTORY: Pain. Neuropathy. possible spinal stenosis, nerve root compression TECHNIQUE: Multiplanar multisequence MRI of the lumbar spine was performed without the use of contrast. COMPARISON: None. FINDINGS: For the purpose of the report the L5-S1 disc space will be located on axial image 2730. Normal signal characteristics of the vertebral bodies. Moderate degenerative disc change L4-L5. Posterior bulging discs based on sagittal images at this level. L1-L2: No significant central canal or neural foraminal narrowing. L2-L3: No significant central canal or neural foraminal narrowing. L3-L4: Slight lateral disc bulges with minimal narrowing of the neuroforamina bilaterally. L4-L5: Broad-based disc herniation. Considerable narrowing right and to lesser extent left neural foramina. Moderate multifactorial spinal stenosis. Moderate hypertrophic change posterior facets and ligamentum flavum. L5-S1: No significant central canal or neural foraminal narrowing. IMPRESSION: 1. Broad-based disc herniation L4-L5 with moderate multifactorial narrowing of the spinal canal. 2. Considerable narrowing of the right and to a lesser extent left neural foramina at this level. 3. Minimal lateral disc bulge bilaterally at L3-L4. The above report was generated using voice recognition software. It may contain grammatical, syntax or spelling errors. Electronically signed by: Junito Shirley M.D. 03/01/2017 12:54 PM Consultations: Law Examiner Dr. Toledo, Ortho Spine Dr. Larkin, Pain Management [facility] Pending Studies/Follow-Up: Please refer to hospital course below. Medication Reconciliation New Medications: Insulin Glargine (Lantus Solostar) 100 Unit/Ml Inj 20 UNITS SC HS for 30 Days, #6 PEN 2 Refills Lisinopril (Lisinopril) 20 Mg Tab 1 TAB PO daiy for 30 Days, #30 TAB 2 Refills Prednisone (Prednisone) 10 Mg Tab 1 TAB PO UD for 10 Days, #21 TABS 0 Refills take 4 tab po daily x 2 days, then take 3 tabs po daily x 2 days, then take 2 tabs po daily x 2 days, then take 1 tab po daily x 2 days, then take 1/2 tab po daily x 2 days, then STOP Gabapentin (Gabapentin) 600 Mg Tab 600 MG PO BID for 30 Days, #60 TAB 2 Refills Hydrocodone/Acetaminophen 5MG/325MG (Cherry Tree 5MG/325MG) Tab 1 TAB PO Q4H PRN for Pain for 7 Days, #15 TAB 0 Refills PRN PAIN Sennosides-Docusate Sodium (Senokot S) 1 Tab Tab 1 TAB PO QAM for 15 Days, #15 TAB 1 Refill while taking Cherry Tree Continued Medications: Aspirin (Aspirin Ec) 81 Mg Tab 81 MG PO DAILY Atorvastatin (Lipitor) 40 Mg Tab 40 MG PO DAILY, TAB Clopidogrel (Plavix) 75 Mg Tab 75 MG PO DAILY, TAB Furosemide (Lasix) 40 Mg Tab 40 MG PO DAILY PRN for " NEEDED" PER PT., TAB Ipratropium-Albuterol (Combivent Respimat) 1 Aer Aer 1 PUFFS INH QID PRN for Wheezing, INH Isosorbide Mononitrate (Imdur Ext Rel) 60 Mg Tab 60 MG PO BID, TAB Metformin Hcl (Glucophage) 1,000 Mg Tab 1000 MG PO BID, TAB Metoprolol Succ (Toprol Xl) (Toprol-Xl ) 100 Mg Tabcr 100 MG PO BID, TAB Nitroglycerin (Nitrostat) 0.4 Mg Tab 0.4 MG UT PRN PRN for Chest Pain, BTL Polyethylene Glycol 3350 (Miralax) 1 Pow Pow 17 GM PO DAILY PRN for Constipation, #527 GM Discontinued Medications: Lisinopril (Zestril) 5 Mg Tab 5 MG PO QPM, TAB Admission Information HPI (per Admitting provider): Pt is 71 y/o M with PMH CAD with CABG, COPD, DM II, HTN, hyperlipidemia presented to ER with c/o Left back pain with radiation to L hip and L leg. Pt states had hx low back pain x many years. Hx L back pain with L leg pain x 1 year. Worse past 4-5 weeks. Reports aching pain left low back with sharp radiation down left buttock to left posterior leg with walking or standing. Pain typically stopped at posterior knee, sometimes radiates to left lateral foot. Denies any falls or leg weakness, but prolonged standing causes pain and makes him feel like he needs to sit. Denies loss control of bowel/bladder. Denies leg paresthesias. Follows with pain management in [place]. Had injection approx 1.5 month ago and states scheduled for another on 03/05/17. He doesn't feel the first injection helped much. Uses Aspercreme patch to L back with some relief of pain. Takes Tylenol and Motrin 2-3 times a day sometimes with relief of back pain, and sometimes not. Reports hx known spinal stenosis and lumbar disc disease. Reports hx MRI couple of years ago. [place] [facility] [place] He reports hx chronic intermittent anterior chest pain which occurs sometimes a couple of times a month. He reports uses on SL nitro with relief within minutes. Denies any worsening. Reports yesterday took 1 nitro for anterior aching CP that lasted less than one minute. Reports hx chronic intermittent SOB with exertion but denies any worsening. He has lasix to use, but uses it prn and hasn't used it recently or felt like he needed it. Hx elevated troponin in past. He felt like his left leg looked a little swollen past 2 weeks, and was worried about a DVT. Pt states doesn't follow with PCP often, as he is ER Dr in [place] and self prescribes his meds. Reports fasting BS in am 100-110. Denies fever/chills, diaphoresis, N/ V/D/C, MARION, dizziness, syncope, vision changes, neck pain, orthopnea, palpitations, cough, sore throat, choking, otalgia, rhinorrhea, abdominal pain, rashes, urinary symptoms. In ER troponin POC: 0.17, EKG: rate 55 sinus with T wave inversion lateral leads. CT chest negative for PE, negative u/s LE for DVT. Hip xray - degenerative changes. lumbar xray considered old T11 compression fx. Pt denies any CP or SOB currently. He was given zofran and morphine for leg pain with relief. Hx echo on last admission for CHF in 08/2016 EF: 40-45% Physical Exam (per Admitting): General Appearance: WD/WN, no apparent distress Head: normocephalic, atraumatic Eyes: normal inspection, PERRL, EOMI, sclerae normal ENT: hearing grossly normal, pharynx normal (mucous membranes moist) Neck: supple, no JVD, trachea midline, + pertinent finding (no spinous process tenderness to palpation, ROM intact) Respiratory/Chest: chest non-tender, no respiratory distress, no accessory muscle use, + pertinent finding (faint rales bilateral bases, no wheezing) Cardiovascular: regular rate, rhythm (60), no murmur, normal peripheral pulses Abdomen/GI: normal bowel sounds, non tender, soft Back: normal inspection, no CVA tenderness, + pertinent finding (+ tenderness left lateral lumbar paraspinous muscles, no spinous process tenderness to palaption. ROM flexion, rotation reproduces pain. no rashes or skin discolorations noted. +straight leg raise to L at approx 30 degrees. ) Extremities/Musculoskelatal: no calf tenderness, normal capillary refill, non-tender, + pertinent finding (no pitting edema. no significant leg edema noted. ROM intact with tenderness ROM left leg and left hip) Neurologic/Psych: alert, normal mood/affect, oriented x 3 Skin: normal color, warm/dry, no rash Hospital Course INTRACTABLE BACK PAIN - secondary to Lumbar Disc Herniation, Spinal Stenosis - Lumbar Spine MRI: 1. Broad-based disc herniation L4-L5 with moderate multifactorial narrowing of the spinal canal. 2. Considerable narrowing of the right and to a lesser extent left neural foramina at this level. 3. Minimal lateral disc bulge bilaterally at L3-L4. - Pain Management and Ortho Spine consulted recommend outpatient follow up for possible surgical options if pain management fails - given: Solumedrol daily Gabapentin 600mg BID PRN Cherry Tree PRN Dilaudid, Toradol - pain improved significantly discharged on: tapering Prednisone course Gabapentin 600mg BID PRN Cherry Tree - ff up with Pain Mgt in [place] on Sunday for planned Steroid Injection ff up with Ortho Spine for discussion re: possible surgical intervention if conservative management fails ELEVATED TROPONIN HISTORY OF CAD/CABG - (+) mil troponin elevated frederick 0.2 new t wave inversions in v1-v6 - echo: * 1. Normal LV size, mild concentric LVH. * 2. Mild to moderate LV dysfunction. LVEF 40-45%. Severe inferolateral hypokinesis, mid to apical moderate lateral hypokinesis. Severe apical hypokinesis. * 3. Normal RV size, mild RV dsyfunction. * 4. Mild mitral regurgitation. * 5. Aortic valve sclerosis without stenosis. * 6. Mild to moderate pulmonary hypertension. Est 45-50 mmHg. * 7. Grade II diastolic dysfunction. * 8. Compared with prior study on 09/29/2016: No significant changes. - Cardiology consulted- Dr. Toledo - recommend to increase Lisinopril to 20mg po daily continue other meds: ASA, metoprolol, plavix, lasix prn COPD - not in exacerbation -duonebs prn DM II - A1c 9.2 - advised to start Lantus 20 units in AM patient states he is comfortable to use Insulin, precautions given advised to closely ff up with his PCP for proper supervision and adjustments patient was comfortable and agreeable with plan of care DISPOSITION d/c home ff up with Pain Mgt day after d/c as scheduled ff up with PCP in 1 week ff up with Law Examiner as scheduled Total time spent on discharge = This includes examination of the patient, discharge planning, medication reconciliation, and communication with other providers. Discharge Instructions Discharge Instructions Date of Service Mar 04, 2017. Admission Reason for Admission: Back Pain, Elevated Troponin Discharge Discharge Diagnosis / Problem: INTRACTABLE BACK PAIN Discharge Goals Goal(s): Diagnostic testing, Therapeutic intervention Activity Recommendations Activity Limitations: as noted below (NO HEAVY EXERTION UNTIL RE-EVALUATED BY PRIMARY CARE PHYSICIAN) Lifting Limitations: until after follow-up appointment Exercise/Sports Limitations: until after follow-up appointment Driving or Machine Use: NO DRIVING WHILE TAKING [place] . Instructions / Follow-Up Instructions / Follow-Up PLEASE REVIEW YOUR NEW MEDICATION LIST AND FOLLOW INSTRUCTIONS CAREFULLY. YOU ARE BEING STARTED ON INSULIN LANTUS AT BEDTIME. CHECK YOUR BLOOD SUGAR BEFORE ADMINISTERING LANTUS. HOLD LANTUS IF YOUR BLOOD SUGAR IS LESS THAN 110. RECORD YOUR BLOOD SUGAR AT LEAST 3X A DAY, AND SHOW THE RECORD TO YOUR PRIMARY CARE PHYSICIAN ON YOUR FOLLOW UP. YOU MAY NEED TO LOWER THE LANTUS DOSE ONCE YOU ARE OFF THE PREDNISONE. FOLLOW UP WITH YOUR PRIMARY CARE PHYSICIAN IN 3-5 DAYS. YOU WILL NEED FURTHER ADVICE REGARDING INSULIN DOSE ADJUSTMENTS. CALL PRIMARY CARE PHYSICIAN OR RETURN TO ER IMMEDIATELY IF WITH RECURRENCE OF SYMPTOMS, BLOOD SUGAR MORE THAN 300. FOLLOW UP WITH PAIN MANAGEMENT SERVICE SCHEDULED. Current Hospital Diet Patient's current hospital diet: Diabetes Type 2 Diet, AHA Diet (Heart Healthy) Discharge Diet Recommended Diet: AHA Diet (Heart Healthy), Diabetes Type 2 Diet Procedures Procedures Performed: CT chest, Lumbar Spine MRI Pending Studies Studies pending at discharge: no Laboratory Results Hemoglobin A1c Test 03/01/17 05:14 Range/Units Estimated Average Glucose 217 mg/dl Hemoglobin A1c 9.2 H 4.5-5.6 % Lipid Panel Test 03/01/17 05:14 Range/Units Triglycerides Level 224 H 0-150 mg/dl Cholesterol Level 187 0-200 mg/dl HDL Cholesterol 44 mg/dl Cholesterol/HDL Ratio 4.3 LDL Cholesterol, Calculated 98 mg/dl Medical Emergencies . Who to Call and When: Medical Emergencies: If at any time you feel your situation is an emergency, please call 911 immediately. . Non-Emergent Contact Non-Emergency issues call your: Primary Care Provider, Law Examiner, Specialist (Pain Management Clinic) Call Non-Emergent contact if: you have a fever, your pain is not controlled, your pain is worsening, you have any medication questions . . "Provider Documentation" section prepared by Akira Wall. . VTE Core Measure Inpt VTE Proph given/why not?: Unfractionated heparin SQ
[2017-03-04 15:43] VITALS: BP 170/87; PULSE 62; TEMP 36.7; O2SAT 97
== END 2017-03-04 16:08 | disposition home or self-care (01) | DRG 552 ==
LOC: C.EDB 15:41 → C.2T 19:42 → ENRESERV 20:00 → OBSVTOIN 03-02 08:43 → C.2T 03-04 06:17
PROVIDERS: ADMIT Hospitalist; ATTEND Internal Medicine
DX: M51.16 Intervertebral disc disorders with radiculopathy, lumbar region (principal); R06.02 Shortness of breath; Z83.3 Family history of diabetes mellitus; Z79.82 Long term (current) use of aspirin; Z79.02 Long term (current) use of antithrombotics/antiplatelets; I25.10 Atherosclerotic heart disease of native coronary artery without angina pectoris; Z95.1 Presence of aortocoronary bypass graft; J44.9 Chronic obstructive pulmonary disease, unspecified; E11.9 Type 2 diabetes mellitus without complications; I11.0 Hypertensive heart disease with heart failure; E78.5 Hyperlipidemia, unspecified; Z95.5 Presence of coronary angioplasty implant and graft; M48.061 Spinal stenosis, lumbar region without neurogenic claudication; I50.9 Heart failure, unspecified; Z79.84 Long term (current) use of oral hypoglycemic drugs

== ENCOUNTER → 2017-05-09 | Outpatient (CLI) | payer OTHER ==
[~2017-05-09] MED LIST changes: +HYDR-5688 PO; +INSDGIPEN SC; -LISI-729 PO; +LSN20 PO; +METF1000 PO; -METF1TAB53 PO; +NRN600 PO; +PRD10 PO; +REGADENOSON 0.4 MG/5 ML SYR ONE; +SENN8.6T7 PO
--- NOTE | 2017-05-17 15:35 | Myocardial Perfusion Study ---
Myocardial Perfusion Study Rpt Myocardial Perfusion Study Rpt Myocardial Perfusion Study Rpt ONE DAY NUCLEAR MEDICINE LEXISCAN TECHNETIUM 99M MYOCARDIAL PERFUSION SCAN Indication: Increased angina, known severe coronary artery disease. Baseline ECG: Normal sinus rhythm, with notable anterolateral ST depressions, T- wave inversions. Ventricular rate 68. Stress ECG: No Lexiscan induced ST changes. No arrhythmias. HR irais from 68 to 86 representing 57 % MPHR. Technique: For the stress portion of the study 31.4 mCi of Technetium 99m Cardiolite IV was injected at 11:40 a.m. on 05/09/2017. 30 minutes following the injection, imaging of the heart was performed in multiple projections. For the rest portion of the study, 10.5 mCi of Technetium 99m Cardiolite was injected IV at 9:05 a.m.. One hour following the injection, imaging of the hear was performed in the same projections. Findings: Rotating raw images were reviewed in detail. Potential sources of attenuation include diaphragmatic shadow, and minimal gut uptake impacting the inferior imaging border of the heart. No significant extracardiac pathologic uptake. Short axis, vertical long axis and horizontal long axis images were reviewed in detail. No visual TID. Severe, large, partially reversible perfusion defect involving the base to mid anterior, anterolateral wall, apical lateral wall and apex. Sum difference score 5 Dilated LV. EDV 204 ml. Severe LV dysfunction. Calculated EF 24 %. Paradoxical septal motion. Severe anterolateral hypokinesis, mild lateral hypokinesis. SUMMARY: 1. Severe, large, partially reversible myocardial perfusion defect involving LAD distribution consistent with prior infarct with moderate amount of pretty- infarct ischemia. 2. Dilated LV with severe LV dysfunction. LVEF 24 % with more pronounced anterolateral and lateral hypokinesis. 3. Non-diagnostic stress ECG due to inability to reach target HR with Lexiscan.
== END | disposition home or self-care (01) ==
LOC: C.NUCL 08:37
PROVIDERS: ATTEND Internal Medicine Interventional Cardiology
DX: I51.9 Heart disease, unspecified (principal); R94.39 Abnormal result of other cardiovascular function study; I25.10 Atherosclerotic heart disease of native coronary artery without angina pectoris

== ENCOUNTER → 2017-05-18 | Outpatient (CLI) | payer OTHER ==
[~2017-05-18] MED LIST changes: +GLC500 PO; +LISI-729 PO; +LNX125 PO; +MCRK20 PO; +METO100T14 PO; +METO200T31 PO; -REGADENOSON 0.4 MG/5 ML SYR ONE; +SACU1TAB7 PO; +SPR25 PO
[2017-05-18 14:43] LABS: HEMATOCRIT 43.6 % (42-52); HEMOGLOBIN 14.1 g/dL (14.0-18.0); MEAN CORPUSCULAR HEMOGLOBIN 27.8 pg (25-34); MEAN CORPUSCULAR HGB CONC 32.3 g/dl (32-36); MEAN PLATELET VOLUME 12.1 fL (7.4-10.4); NUCLEATED RED BLOOD CELL ABS 0.02 K/uL (0-0); PLATELET COUNT 218 K/uL (130-400); RED CELL DISTRIBUTION WIDTH CV 13.8 % (11.5-14.5); WHITE BLOOD COUNT 10.39 K/uL (4.8-10.8)
[2017-05-18 15:02] LABS: PTT PATIENT 24.3 SECONDS (21.0-31.0)
[2017-05-18 15:22] LABS: BLOOD UREA NITROGEN 27 mg/dl (7-18); CALCIUM 8.9 mg/dl (8.5-10.1); CARBON DIOXIDE 27 mmol/L (21-32); CREATININE 0.81 mg/dl (0.60-1.40); GLUCOSE 221 mg/dl (70-99); POTASSIUM 3.7 mmol/L (3.5-5.1); SODIUM 140 mmol/L (136-145)
== END | disposition home or self-care (01) ==
LOC: C.LAB1850 13:14
PROVIDERS: ATTEND Internal Medicine Interventional Cardiology
DX: Z01.818 Encounter for other preprocedural examination (principal)

== ENCOUNTER → 2017-06-04 | Outpatient (CLI) | payer OTHER ==
[~2017-06-04] MED LIST changes: -LISI-729 PO; -LSN20 PO; -METF1000 PO; -METO100T14 PO; -METO100T44 PO; -NRN600 PO; -POLY335019 PO; -PRD10 PO; -SENN8.6T7 PO
[2017-06-04 09:58] LABS: BLOOD UREA NITROGEN 17 mg/dl (7-18); CALCIUM 8.8 mg/dl (8.5-10.1); CARBON DIOXIDE 28 mmol/L (21-32); CREATININE 0.79 mg/dl (0.60-1.40); GLUCOSE 99 mg/dl (70-99); POTASSIUM 4.5 mmol/L (3.5-5.1); SODIUM 141 mmol/L (136-145)
== END | disposition home or self-care (01) ==
LOC: C.LAB1850 08:14
PROVIDERS: ATTEND Hospitalist
DX: I50.9 Heart failure, unspecified (principal); I25.10 Atherosclerotic heart disease of native coronary artery without angina pectoris; E78.5 Hyperlipidemia, unspecified; I11.0 Hypertensive heart disease with heart failure